=== PATIENT | female | born 1990 | race Caucasian/White ===

== ENCOUNTER 2018-12-25 15:28 | Observation (INO) | payer OTHER, MEDICAID, SELFPAY ==
[2018-12-25 15:30] VITALS: BP 165/99; PULSE 79; RESP 16; TEMP 36.7; O2SAT 96; BMI 42.7
[2018-12-25 16:02] LABS: Bacteria 0 SEEN /hpf (None Seen); Mucous, Urine 0 SEEN /hpf (<or=2+); Red Blood Cells-Urine 0 SEEN /hpf (0-5); White Blood Cells 0 SEEN /hpf (0-5)
[2018-12-25 16:09] LABS: Color, Urine Yellow (Yellow); Glucose, Dipstick Normal (Normal); Ketone-Dipstick Negative (Negative); Leukocyte Esterase-Dipstick Negative /ul (Negative); Nitrite-Dipstick Negative (Negative); Occult Blood-Urine Negative /ul (Negative); Protein-Dipstick Negative (Negative); Urine Bilirubin Dipstick Negative (Negative); Urine Clarity Clear (Clear); Urine Urobilinogen Normal (Normal)
--- NOTE | 2018-12-25 16:14 | US_ITS ---
STUDY: ABDOMINAL ULTRASOUND - RIGHT UPPER QUADRANT REASON FOR VISIT: Female, 28 years old right upper quadrant pain with nausea and vomiting. TECHNIQUE: Ultrasound evaluation of the right upper quadrant was performed with real-time and static bob-scale imaging. TECHNICAL QUALITY: Adequate. COMPARISON: None. FINDINGS: Liver: The liver measures 16.5 cm. There is normal echogenicity of the liver. The bile ducts are within normal limits. There is hepatic color flow. The direction of portal flow is hepatopetal. There is no demonstrated mass lesion. Gallbladder: Normal distended gallbladder. The gallbladder wall measures 2.6 mm. There is a negative sonographic Lea's sign. There is no pericholecystic fluid. There are multiple echogenic structures within the gallbladder, consistent with multiple gallstones. Common Bile Duct (C.B.D.): The common bile duct measures 7 mm. Pancreas: Normal head and body of the pancreas. Tail obscured by bowel gas. There is normal echogenicity of the pancreas. There is no demonstrated pancreatic mass or cyst. Right Kidney: Normal size of the right kidney. The right kidney measures 11.9 x 5.5 x 4.4 cm. Normal renal cortex. The right cortex measures 1.3 cm. There is no demonstrated renal mass or cyst. There is no right hydronephrosis. US/Gallbladder IMPRESSION: Normal liver. Numerous tiny dependent gallstones in the gallbladder without wall thickening or pericholecystic fluid. The common bile duct is upper limits of normal/mildly dilated without a visualized filling defect in the intrahepatic portion of the visualized common bile duct. Normal pancreas and right kidney. Electronically Signed: Sayda Segundo MD at 17:45 EDT , Service support ,
--- NOTE | 2018-12-25 16:15 | ED.VIS.GEN ---
History of Present Illness Chief Complaint: Abd Pain Detail of Chief Complaint: Right upper quadrant pain Informant: Patient Onset: Month(s) - For approximately 3 months Context: Sudden Onset Timing: Intermittent Quality: Pain right upper quadrant pain with radiation and nausea/vomiting Location: Right upper quadrant Current Severity: Mild Maximum Severity: Severe Worsened by: Initially fatty meals now any meal Relieved by: Nothing Associated Symptoms: Nausea and vomiting Narrative: Patient is a 28-year-old female status post 3 months ago. Pain started after delivery. She initially reported intolerance to greasy and fatty meals. There is a strong family history of cholelithiasis. She now reports any type of food will cause her to have pain in the right upper quadrant. She has had elevated temperatures. She has not had elevated temperature last 24 hours. She still complains of nausea. She denies cardiac respiratory symptoms. She denies urologic symptoms. There is no history of trauma. Prior similar symptoms: Yes Recent Illness/Hospitalization: No - Past Medical History (1) No significant past medical history Status: Acute Past Medical History - Allergies and Home Meds Allergies/Adverse Reactions: Allergies No Known Allergies Allergy (Verified 12/25/18 15:29) Primary Care Physician: NOT,DEFINED [NON-STAFF] - Prior records reviewed: No - Recently moved from [place] Surgical History: - - Lives: Spouse/ Significant Other, With Family Smoking Status: Never smoker Alcohol: None Drugs: None Review of Systems General: Denies: Chills, Fever, Sweats Eyes: Denies: Visual changes - bilaterally, Diplopia ENT: Denies: Rhinorrhea, Sore throat Cardiovascular: Denies: Chest pain, Palpitations Respiratory: Denies: Dyspnea, Cough, Dyspnea on exertion Gastrointestinal: Reports: Abdominal pain, Nausea, Vomiting. Denies: Diarrhea, Constipation, Melena, Hematochezia, -, - Genitourinary: Denies: Dysuria, Hematuria, Frequency Musculoskeletal: Reports: Back pain. Denies: Myalgias, Arthralgias, Neck pain, Swelling, Extremity Pain Skin: Denies: Rash, Wounds Neurological: Denies: Headache, Weakness, Numbness Physical Exam Vital Signs/Narrative: Vital Signs Temp Pulse Resp BP Pulse Ox 12/25/18 15:30 98.1 F 79 16 165/99 H 96 Inital Vital Signs reviewed: Yes General: Well nourished, Well developed, No Acute Distress - She does appear uncomfortable. Head: Normocephalic, Atraumatic Eyes: Perrl, EOMI. Negative for: Pale conjunctiva, Scleral icterus ENT: Moist mucous membranes, No rhinorrhea Neck: Supple, Nontender, No lymphadenopathy, No JVD Cardiovascular: Regular rate, Regular rhythm, No murmurs, Normal S1, Normal S2 Respiratory: No distress, CTA bilaterally, Chest nontender Abdomen: Soft, Nondistended, Normal bowel sounds, Tender, Lea's sign Back: Nontender, Normal Inspection. Negative for: CVA tenderness Extremities: Nontender, No edema Skin: Normal color, No rash Neurological: Alert, Oriented x3, Cranial nerves II-XII grossly intact, Normal Strength, Normal Sensation Psychological: Normal affect, Normal Mood Diagnostic/Tx/Re-eval Impressions Gallbladder Ultrasound 12/25/18 16:14 IMPRESSION: Normal liver. Numerous tiny dependent gallstones in the gallbladder without wall thickening or pericholecystic fluid. The common bile duct is upper limits of normal/mildly dilated without a visualized filling defect in the intrahepatic portion of the visualized common bile duct. Normal pancreas and right kidney. Electronically Signed: Sayda Segundo MD at 17:45 EDT , Service support , 12/25/18 16:14 Gallbladder [US] Stat Laboratory Results 12/25/18 12/25/18 12/25/18 15:45 15:57 15:57 WBC Cancelled Corrected WBC Cancelled RBC Cancelled Hgb Cancelled Hct Cancelled MCV Cancelled MCH Cancelled MCHC Cancelled RDW Std Deviation Cancelled RDW Coeff of Paula Cancelled Plt Count Cancelled MPV Cancelled Immature Gran % (Auto) Cancelled Neut % (Auto) Cancelled Lymph % (Auto) Cancelled [place] % (Auto) Cancelled Eos % (Auto) Cancelled Baso % (Auto) Cancelled Absolute Neuts (auto) Cancelled Absolute Lymphs (auto) Cancelled Total Counted Cancelled Neutrophils % (Manual) Cancelled Band Neutrophils % Cancelled Lymphocytes % (Manual) Cancelled Monocytes % (Manual) Cancelled Eosinophils % (Manual) Cancelled Basophils % (Manual) Cancelled Metamyelocytes % Cancelled Myelocytes % Cancelled Promyelocytes % Cancelled Blast Cells % Cancelled Plasma Cell % (Manual) Cancelled Other Cells % Cancelled Nucleated RBC % Cancelled Nucleated RBCs/100 WBC Cancelled Differential Comment Cancelled Diff Path Review Cancelled Hypersegmented Neuts Cancelled Atypical Lymphocytes Cancelled Reactive Lymphocytes Cancelled Smudge Cells Cancelled Toxic Granulation Cancelled Toxic Vacuolation Cancelled Dohle Bodies Cancelled Saul Rods Cancelled Platelet Estimate Cancelled Plt Morphology Comment Cancelled RBC Morphology Cancelled Polychromasia Cancelled Hypochromasia Cancelled Poikilocytosis Cancelled Basophilic Stippling Cancelled Anisocytosis Cancelled Microcytosis Cancelled Macrocytosis Cancelled Spherocytes Cancelled Sickle Cells Cancelled Target Cells Cancelled Tear Drop Cells Cancelled Ovalocytes Cancelled Stomatocytes Cancelled [place] Bodies Cancelled [place] Cells Cancelled Bite Cells Cancelled Crenated Cell Cancelled Acanthocytes (Spur) Cancelled Rouleaux Cancelled Schistocytes Cancelled Sodium 137 Potassium 4.7 Chloride 105 Carbon Dioxide 27.0 Anion Gap 5 BUN 11 Creatinine 0.85 Estim Creat Clear Calc 77.93 Est GFR (MDRD) Af Amer 102 Est GFR (MDRD) Non-Af 84 BUN/Creatinine Ratio 13.0 Glucose 96 Calcium 9.2 Total Bilirubin Direct Bilirubin AST ALT Alkaline Phosphatase Total Protein Albumin Globulin Lipase Serum , Qual Urine Color Yellow Urine Clarity Clear Urine pH 7.0 Ur Specific [place] 1.010 Urine Protein Negative Urine Glucose (UA) Normal Urine Ketones Negative Urine Occult Blood Negative Urine Nitrite Negative Urine Bilirubin Negative Urine Urobilinogen Normal Ur Leukocyte Esterase Negative Urine RBC 0 SEEN Urine WBC 0 SEEN Ur Squamous Epith Cells 0-5 SEEN Urine Bacteria 0 SEEN Urine Mucus 0 SEEN 12/25/18 12/25/18 15:57 15:57 WBC Corrected WBC RBC Hgb Hct MCV MCH MCHC RDW Std Deviation RDW Coeff of Paula Plt Count MPV Immature Gran % (Auto) Neut % (Auto) Lymph % (Auto) [place] % (Auto) Eos % (Auto) Baso % (Auto) Absolute Neuts (auto) Absolute Lymphs (auto) Total Counted Neutrophils % (Manual) Band Neutrophils % Lymphocytes % (Manual) Monocytes % (Manual) Eosinophils % (Manual) Basophils % (Manual) Metamyelocytes % Myelocytes % Promyelocytes % Blast Cells % Plasma Cell % (Manual) Other Cells % Nucleated RBC % Nucleated RBCs/100 WBC Differential Comment Diff Path Review Hypersegmented Neuts Atypical Lymphocytes Reactive Lymphocytes Smudge Cells Toxic Granulation Toxic Vacuolation Dohle Bodies Saul Rods Platelet Estimate Plt Morphology Comment RBC Morphology Polychromasia Hypochromasia Poikilocytosis Basophilic Stippling Anisocytosis Microcytosis Macrocytosis Spherocytes Sickle Cells Target Cells Tear Drop Cells Ovalocytes Stomatocytes [place] Bodies [place] Cells Bite Cells Crenated Cell Acanthocytes (Spur) Rouleaux Schistocytes Sodium Potassium Chloride Carbon Dioxide Anion Gap BUN Creatinine Estim Creat Clear Calc Est GFR (MDRD) Af Amer Est GFR (MDRD) Non-Af BUN/Creatinine Ratio Glucose Calcium Total Bilirubin 1.30 H Direct Bilirubin 0.24 AST 189 H ALT 116 H Alkaline Phosphatase 190 H Total Protein 7.8 Albumin 3.7 Globulin 4.1 Lipase 110 Serum , Qual NEGATIVE Urine Color Urine Clarity Urine pH Ur Specific [place] Urine Protein Urine Glucose (UA) Urine Ketones Urine Occult Blood Urine Nitrite Urine Bilirubin Urine Urobilinogen Ur Leukocyte Esterase Urine RBC Urine WBC Ur Squamous Epith Cells Urine Bacteria Urine Mucus - Medical Decision Making With recent , intolerance to greasy food and family history cholelithiasis with clinical Lea sign will obtain ultrasound to assess for cholelithiasis/cholecystitis. Blood work was obtained to assess white count, liver enzymes and lipase. This may also represent gastritis/peptic ulcer disease. She has not eaten since 0900 and ultrasound of the right upper quadrant was ordered. Tone is normal. Spoke with surgeon who will begin to see patient for admission. ED Disposition - Plan for ED Patient: Disposition: Acute Care Hospital [facility] Diagnosis: Cholelithiasis, Biliary colic Referrals: NOT,DEFINED [NON-STAFF] -
[2018-12-25 16:19] LABS: Anion Gap 5 (5-15); BUN 11 mg/dL (7-18); Calcium,Total 9.2 mg/dL (8.5-10.1); Chloride 105 mmol/L (98-107); Creatinine, Serum 0.85 mg/dL (0.55-1.02); EST Glomerular Filtration Rate 84 mL/min (>60); Est Glom Filt Rate - Afr Amer 102 mL/min (>60); Estimated Creatinine Clearance 77.93 ml/min; Glucose 96 mg/dL (74-106); Potassium 4.7 mmol/L (3.5-5.1); Sodium Level 137 mmol/L (136-145)
[2018-12-25 16:26] LABS: Internal QC Validated? YES +Cl - CLEAR BKGD; Pregnancy, Serum, hCG Quali. NEGATIVE Negative
[2018-12-25 16:37] LABS: Squamous Epithelial Cells - UA 0-5 SEEN /hpf (5-10)
[2018-12-25 17:12] LABS: AST(SGOT) 189 U/L (15-37); Alanine Aminotransfer ALT/SGPT 116 U/L (13-56); Albumin, Serum 3.7 g/dL (3.2-5.0); Alkaline Phosphatase 190 U/L (45-117); Bilirubin, Direct 0.24 mg/dL (0.00-0.30); Globulin 4.1 g/dL (2.2-4.2); Lipase 110 U/L (73-393); Protein, Total 7.8 g/dL (6.4-8.2)
[2018-12-25 17:59] LABS: Absolute Lymphocyte Count 1.63 X10^3/uL (0.83-4.51); Absolute Neutrophil Count 6.9 X10^3/uL (2.0-7.7); Basophil# 0.03 X10^3/uL; Basophil% 0.3 % (0-1); Eosinophil# 0.05 X10^3/uL; Eosinophils% 0.5 % (0-5); Hematocrit 43.1 % (37-47); Hemoglobin 14.2 g/dL (12.0-15.0); Lymphocyte # 1.63 X10^3/ul (4.0); Lymphocyte % 17.8 % (19-41); Mean Corp Hgb Conc 32.9 g/dL (32-36); Mean Corpuscular Hgb 29.4 pg (27.0-32.0); Mean Corpuscular Volume 89.2 fL (81-99); Monocyte# 0.52 X10^3/uL; Monocyte% 5.7 % (0-10); NRBC Flagged by Analyzer 0 % (0-5); Neutrophil # 6.88 X10^3/uL (2.7-7.7); Neutrophil % 75.4 % (47-70); Platelet Count 248 K/mm3 (150-450); RBC Distribution Width SD 45.6 fl (35.1-43.9); Red Blood Count 4.83 M/mm3 (4.2-5.4); White Blood Count 9.1 K/mm3 (4.4-11.0)
[2018-12-25] MEDS: Ketorolac 15 MG/ML Vial IV (18:23)
[2018-12-25 18:31] VITALS: BP 140/74; PULSE 76; RESP 18; O2SAT 97
[2018-12-25 20:08] VITALS: RESP 16
--- NOTE | 2018-12-25 20:14 | HP.PCM_ITS ---
Problem List (1) Cholelithiasis Status: Acute Qualifiers: Cholelithiasis location: gallbladder Cholecystitis presence: with cholecystitis Cholecystitis acuity: acute and chronic Biliary obstruction: with biliary obstruction Qualified Code(s): K80.13 - Calculus of gallbladder with acute and chronic cholecystitis with obstruction (2) Biliary colic Status: Acute History of Present Illness Date of Admission: 12/25/18 The patient is a 28 year old F who presented to the emergency room with right upper quadrant pain. The patient reports that for the last 3 months she has been having pain in her right upper quadrant. This started with the end of her . She reports that ever since she gave she is been having intermittent right upper quadrant pain but lately she is been having more intense episodes of pain. She says that this morning she had a very intense episode of pain. She still complaining of epigastric pain but it has lessened since this morning. Past Medical History Allergies No Known Allergies Allergy (Verified 12/25/18 15:29) Home Medications: Ambulatory Orders Medication Instructions Recorded NK 12/25/18 Surgical History: - - Lives: Spouse/ Significant Other, With Family Smoking Status: Never smoker Alcohol: None Drugs: None Review of Systems Constitutional: Denies: Anorexia, Fever HEENT: Denies: Difficulty Swallowing Cardiovascular: Denies: Chest Pain Respiratory: Denies: Shortness of Breath Gastrointestinal: Reports: Abdominal Pain. Denies: Nausea, Vomiting Genitourinary: Denies: Dysuria Musculoskeletal: Denies: Arm Pain, Back Pain Skin: Denies: Dryness Psychiatric: Denies: Anxiety Hematologic/ Lymphatic: Denies: Anemia VTE Information - Inpt Only VTE Present on Admission: No VTE Mechan Device Prophylaxis: SCD's Patient Problems: Active and Suspected Problems Cholelithiasis (Acute) Biliary colic (Acute) - Physical Exam General: Alert, Oriented x3 Neck: No JVD Lungs: Normal air movement Cardiovascular: Regular rate, Regular Rhythm Abdomen: Soft, Non-Distended, Tender - Tender in the epigastric region Vital Signs Temp Pulse Resp BP Pulse Ox 98.1 F 76 16 140/74 H 97 12/25/18 15:30 12/25/18 18:31 12/25/18 20:08 12/25/18 18:31 12/25/18 18:31 Oxygen Delivery Method Room Air Weight: 233 lb 11.04 oz Body Mass Index (BMI) 42.7 Laboratory Tests Past 24 Hrs 12/25/18 12/25/18 12/25/18 15:45 15:57 15:57 WBC Cancelled Corrected WBC Cancelled RBC Cancelled Hgb Cancelled Hct Cancelled MCV Cancelled MCH Cancelled MCHC Cancelled RDW Std Deviation Cancelled RDW Coeff of Paula Cancelled Plt Count Cancelled MPV Cancelled Immature Gran % (Auto) Cancelled Neut % (Auto) Cancelled Lymph % (Auto) Cancelled [place] % (Auto) Cancelled Eos % (Auto) Cancelled Baso % (Auto) Cancelled Absolute Neuts (auto) Cancelled Absolute Lymphs (auto) Cancelled Total Counted Cancelled Neutrophils % (Manual) Cancelled Band Neutrophils % Cancelled Lymphocytes % (Manual) Cancelled Monocytes % (Manual) Cancelled Eosinophils % (Manual) Cancelled Basophils % (Manual) Cancelled Metamyelocytes % Cancelled Myelocytes % Cancelled Promyelocytes % Cancelled Blast Cells % Cancelled Plasma Cell % (Manual) Cancelled Other Cells % Cancelled Nucleated RBC % Cancelled Nucleated RBCs/100 WBC Cancelled Differential Comment Cancelled Diff Path Review Cancelled Hypersegmented Neuts Cancelled Atypical Lymphocytes Cancelled Reactive Lymphocytes Cancelled Smudge Cells Cancelled Toxic Granulation Cancelled Toxic Vacuolation Cancelled Dohle Bodies Cancelled Saul Rods Cancelled Platelet Estimate Cancelled Plt Morphology Comment Cancelled RBC Morphology Cancelled Polychromasia Cancelled Hypochromasia Cancelled Poikilocytosis Cancelled Basophilic Stippling Cancelled Anisocytosis Cancelled Microcytosis Cancelled Macrocytosis Cancelled Spherocytes Cancelled Sickle Cells Cancelled Target Cells Cancelled Tear Drop Cells Cancelled Ovalocytes Cancelled Stomatocytes Cancelled [place] Bodies Cancelled [place] Cells Cancelled Bite Cells Cancelled Crenated Cell Cancelled Acanthocytes (Spur) Cancelled Rouleaux Cancelled Schistocytes Cancelled Sodium 137 Potassium 4.7 Chloride 105 Carbon Dioxide 27.0 Anion Gap 5 BUN 11 Creatinine 0.85 Estim Creat Clear Calc 77.93 Est GFR (MDRD) Af Amer 102 Est GFR (MDRD) Non-Af 84 BUN/Creatinine Ratio 13.0 Glucose 96 Calcium 9.2 Total Bilirubin Direct Bilirubin AST ALT Alkaline Phosphatase Total Protein Albumin Globulin Lipase Serum , Qual Urine Color Yellow Urine Clarity Clear Urine pH 7.0 Ur Specific [place] 1.010 Urine Protein Negative Urine Glucose (UA) Normal Urine Ketones Negative Urine Occult Blood Negative Urine Nitrite Negative Urine Bilirubin Negative Urine Urobilinogen Normal Ur Leukocyte Esterase Negative Urine RBC 0 SEEN Urine WBC 0 SEEN Ur Squamous Epith Cells 0-5 SEEN Urine Bacteria 0 SEEN Urine Mucus 0 SEEN 12/25/18 12/25/18 12/25/18 15:57 15:57 17:50 WBC 9.1 Corrected WBC RBC 4.83 Hgb 14.2 Hct 43.1 MCV 89.2 MCH 29.4 MCHC 32.9 RDW Std Deviation 45.6 H RDW Coeff of Paula 14.0 Plt Count 248 MPV 11.0 Immature Gran % (Auto) 0.300 Neut % (Auto) 75.4 H Lymph % (Auto) 17.8 L [place] % (Auto) 5.7 Eos % (Auto) 0.5 Baso % (Auto) 0.3 Absolute Neuts (auto) 6.9 Absolute Lymphs (auto) 1.63 Total Counted Neutrophils % (Manual) Band Neutrophils % Lymphocytes % (Manual) Monocytes % (Manual) Eosinophils % (Manual) Basophils % (Manual) Metamyelocytes % Myelocytes % Promyelocytes % Blast Cells % Plasma Cell % (Manual) Other Cells % Nucleated RBC % 0 Nucleated RBCs/100 WBC Differential Comment Diff Path Review Hypersegmented Neuts Atypical Lymphocytes Reactive Lymphocytes Smudge Cells Toxic Granulation Toxic Vacuolation Dohle Bodies Saul Rods Platelet Estimate Plt Morphology Comment RBC Morphology Polychromasia Hypochromasia Poikilocytosis Basophilic Stippling Anisocytosis Microcytosis Macrocytosis Spherocytes Sickle Cells Target Cells Tear Drop Cells Ovalocytes Stomatocytes [place] Bodies [place] Cells Bite Cells Crenated Cell Acanthocytes (Spur) Rouleaux Schistocytes Sodium Potassium Chloride Carbon Dioxide Anion Gap BUN Creatinine Estim Creat Clear Calc Est GFR (MDRD) Af Amer Est GFR (MDRD) Non-Af BUN/Creatinine Ratio Glucose Calcium Total Bilirubin 1.30 H Direct Bilirubin 0.24 AST 189 H ALT 116 H Alkaline Phosphatase 190 H Total Protein 7.8 Albumin 3.7 Globulin 4.1 Lipase 110 Serum , Qual NEGATIVE Urine Color Urine Clarity Urine pH Ur Specific [place] Urine Protein Urine Glucose (UA) Urine Ketones Urine Occult Blood Urine Nitrite Urine Bilirubin Urine Urobilinogen Ur Leukocyte Esterase Urine RBC Urine WBC Ur Squamous Epith Cells Urine Bacteria Urine Mucus Clinical Impression(s) from Imaging Studies Gallbladder Ultrasound 12/25/18 16:14 IMPRESSION: Normal liver. Numerous tiny dependent gallstones in the gallbladder without wall thickening or pericholecystic fluid. The common bile duct is upper limits of normal/mildly dilated without a visualized filling defect in the intrahepatic portion of the visualized common bile duct. Normal pancreas and right kidney. Electronically Signed: Sayda Segundo MD at 17:45 EDT , Service support , Assessment/Plan All Active Problems No significant past medical history (Acute) Cholelithiasis (Acute) Biliary colic (Acute) 28-year-old female with cholelithiasis 1. The patient reports that she has been having right upper quadrant pain. She had an episode of this right upper quadrant pain this morning. It is lessening at this point. She does have a normal white count but there is left shift. The patient also has slightly elevated LFTs. Ultrasound showed multiple gallstones in the gallbladder but normal gallbladder thickness. 2. Patient appears to have either acute obstruction of the common bile duct or resolving obstruction. I will admit the patient and start her on antibiotics. I will recheck LFTs in the morning. I explained her that if the LFTs increase I would recommend ERCP. If the LFTs decreased I would recommend laparoscopic cholecystectomy to prevent this from happening in the future. I will keep the patient n.p.o. and on IV fluids with SCDs and PPI. Mikie Alvarez MD Pager: [facility] [address] [place] [address], [address] [place] [address] Office:
[2018-12-25 20:32] VITALS: BMI 42.3
[2018-12-25 20:52] VITALS: BP 148/91; PULSE 102; RESP 18; TEMP 36.8; O2SAT 100
[2018-12-25] MEDS: 0.9% Normal Saline 1,000 ML 100 ML IV (21:46)
[2018-12-26] VITALS (10 sets, daily range): BP systolic 101–154; BP diastolic 63–109; PULSE 58–100; RESP 16–18; TEMP 36.2–36.8; O2SAT 94–100
[2018-12-26] MEDS: 0.9% NaCl IVPB Med Flush (250 mL) 15 ML IV (01:46)
[2018-12-26] MEDS: 0.9% NaCl Peripheral Flush Adult/Peds IV (02:11)
[2018-12-26] MEDS: 0.9% Normal Saline 1,000 ML 100 ML IV (05:52)
[2018-12-26 06:18] LABS: Absolute Lymphocyte Count 2.04 X10^3/uL (0.83-4.51); Absolute Neutrophil Count 4.6 X10^3/uL (2.0-7.7); Basophil# 0.03 X10^3/uL; Basophil% 0.4 % (0-1); Eosinophil# 0.14 X10^3/uL; Eosinophils% 1.9 % (0-5); Hematocrit 43.5 % (37-47); Lymphocyte # 2.04 X10^3/ul (4.0); Lymphocyte % 27.8 % (19-41); Mean Corp Hgb Conc 32.2 g/dL (32-36); Mean Corpuscular Hgb 28.7 pg (27.0-32.0); Mean Corpuscular Volume 89.3 fL (81-99); Mean Platelet Vol. 11.5 fl (6.2-12.0); Monocyte# 0.51 X10^3/uL; NRBC Flagged by Analyzer 0 % (0-5); Neutrophil # 4.59 X10^3/uL (2.7-7.7); Neutrophil % 62.6 % (47-70); Platelet Count 245 K/mm3 (150-450); RBC Distribution Width CV 14.3 % (11.6-14.6); RBC Distribution Width SD 46.5 fl (35.1-43.9); Red Blood Count 4.87 M/mm3 (4.2-5.4); White Blood Count 7.3 K/mm3 (4.4-11.0)
[2018-12-26 06:46] LABS: ALB/GLOB Ratio 1.1 RATIO (0.9-2.4); AST(SGOT) 64 U/L (15-37); Alanine Aminotransfer ALT/SGPT 96 U/L (13-56); Albumin, Serum 3.3 g/dL (3.2-5.0); Alkaline Phosphatase 153 U/L (45-117); Anion Gap 4 (5-15); BUN 11 mg/dL (7-18); BUN/Creat Ratio 11.9 RATIO (10-20); Calcium,Total 8.3 mg/dL (8.5-10.1); Chloride 110 mmol/L (98-107); Creatinine, Serum 0.92 mg/dL (0.55-1.02); EST Glomerular Filtration Rate 77 mL/min (>60); Est Glom Filt Rate - Afr Amer 93 mL/min (>60); Globulin 3.1 g/dL (2.2-4.2); Glucose 92 mg/dL (74-106); Potassium 3.6 mmol/L (3.5-5.1); Protein, Total 6.4 g/dL (6.4-8.2); Sodium Level 140 mmol/L (136-145)
--- NOTE | 2018-12-26 07:31 | PCM.PN.SRG ---
Patient Problems: Active and Suspected Problems Cholelithiasis (Acute) Biliary colic (Acute) Subjective: Patient reports that her stomach feels uneasy but she is not having any pain. - Physical Exam General: Alert, Oriented x3 Lungs: Normal air movement Cardiovascular: Regular rate, Regular Rhythm Abdomen: Soft, Non-Distended Vital Signs Temp Pulse Resp BP Pulse Ox 98.0 F 77 16 101/63 96 12/26/18 02:09 12/26/18 02:09 12/26/18 02:09 12/26/18 02:09 12/26/18 02:09 Oxygen Delivery Method Room Air Weight: 231 lb 5 oz Body Mass Index (BMI) 42.3 Intake and Output for Last 24 Hours 12/24/18 12/25/18 12/26/18 23:59 23:59 23:59 Intake Total 918.67 / 918.67 Output Total 600 / 600 Balance 318.67 / 318.67 Laboratory Tests Past 24 Hrs 12/25/18 12/25/18 12/25/18 15:45 15:57 15:57 WBC Cancelled Corrected WBC Cancelled RBC Cancelled Hgb Cancelled Hct Cancelled MCV Cancelled MCH Cancelled MCHC Cancelled RDW Std Deviation Cancelled RDW Coeff of Paula Cancelled Plt Count Cancelled MPV Cancelled Immature Gran % (Auto) Cancelled Neut % (Auto) Cancelled Lymph % (Auto) Cancelled Desha % (Auto) Cancelled Eos % (Auto) Cancelled Baso % (Auto) Cancelled Absolute Neuts (auto) Cancelled Absolute Lymphs (auto) Cancelled Total Counted Cancelled Neutrophils % (Manual) Cancelled Band Neutrophils % Cancelled Lymphocytes % (Manual) Cancelled Monocytes % (Manual) Cancelled Eosinophils % (Manual) Cancelled Basophils % (Manual) Cancelled Metamyelocytes % Cancelled Myelocytes % Cancelled Promyelocytes % Cancelled Blast Cells % Cancelled Plasma Cell % (Manual) Cancelled Other Cells % Cancelled Nucleated RBC % Cancelled Nucleated RBCs/100 WBC Cancelled Differential Comment Cancelled Diff Path Review Cancelled Hypersegmented Neuts Cancelled Atypical Lymphocytes Cancelled Reactive Lymphocytes Cancelled Smudge Cells Cancelled Toxic Granulation Cancelled Toxic Vacuolation Cancelled Dohle Bodies Cancelled Saul Rods Cancelled Platelet Estimate Cancelled Plt Morphology Comment Cancelled RBC Morphology Cancelled Polychromasia Cancelled Hypochromasia Cancelled Poikilocytosis Cancelled Basophilic Stippling Cancelled Anisocytosis Cancelled Microcytosis Cancelled Macrocytosis Cancelled Spherocytes Cancelled Sickle Cells Cancelled Target Cells Cancelled Tear Drop Cells Cancelled Ovalocytes Cancelled Stomatocytes Cancelled [place] Bodies Cancelled Modale Cells Cancelled Bite Cells Cancelled Crenated Cell Cancelled Acanthocytes (Spur) Cancelled Rouleaux Cancelled Schistocytes Cancelled Sodium 137 Potassium 4.7 Chloride 105 Carbon Dioxide 27.0 Anion Gap 5 BUN 11 Creatinine 0.85 Estim Creat Clear Calc 77.93 Est GFR (MDRD) Af Amer 102 Est GFR (MDRD) Non-Af 84 BUN/Creatinine Ratio 13.0 Glucose 96 Calcium 9.2 Total Bilirubin Direct Bilirubin AST ALT Alkaline Phosphatase Total Protein Albumin Globulin Albumin/Globulin Ratio Lipase Serum , Qual Urine Color Yellow Urine Clarity Clear Urine pH 7.0 Ur Specific Barney 1.010 Urine Protein Negative Urine Glucose (UA) Normal Urine Ketones Negative Urine Occult Blood Negative Urine Nitrite Negative Urine Bilirubin Negative Urine Urobilinogen Normal Ur Leukocyte Esterase Negative Urine RBC 0 SEEN Urine WBC 0 SEEN Ur Squamous Epith Cells 0-5 SEEN Urine Bacteria 0 SEEN Urine Mucus 0 SEEN 12/25/18 12/25/18 12/25/18 15:57 15:57 17:50 WBC 9.1 Corrected WBC RBC 4.83 Hgb 14.2 Hct 43.1 MCV 89.2 MCH 29.4 MCHC 32.9 RDW Std Deviation 45.6 H RDW Coeff of Paula 14.0 Plt Count 248 MPV 11.0 Immature Gran % (Auto) 0.300 Neut % (Auto) 75.4 H Lymph % (Auto) 17.8 L Desha % (Auto) 5.7 Eos % (Auto) 0.5 Baso % (Auto) 0.3 Absolute Neuts (auto) 6.9 Absolute Lymphs (auto) 1.63 Total Counted Neutrophils % (Manual) Band Neutrophils % Lymphocytes % (Manual) Monocytes % (Manual) Eosinophils % (Manual) Basophils % (Manual) Metamyelocytes % Myelocytes % Promyelocytes % Blast Cells % Plasma Cell % (Manual) Other Cells % Nucleated RBC % 0 Nucleated RBCs/100 WBC Differential Comment Diff Path Review Hypersegmented Neuts Atypical Lymphocytes Reactive Lymphocytes Smudge Cells Toxic Granulation Toxic Vacuolation Dohle Bodies Saul Rods Platelet Estimate Plt Morphology Comment RBC Morphology Polychromasia Hypochromasia Poikilocytosis Basophilic Stippling Anisocytosis Microcytosis Macrocytosis Spherocytes Sickle Cells Target Cells Tear Drop Cells Ovalocytes Stomatocytes [place] Bodies Pam Cells Bite Cells Crenated Cell Acanthocytes (Spur) Rouleaux Schistocytes Sodium Potassium Chloride Carbon Dioxide Anion Gap BUN Creatinine Estim Creat Clear Calc Est GFR (MDRD) Af Amer Est GFR (MDRD) Non-Af BUN/Creatinine Ratio Glucose Calcium Total Bilirubin 1.30 H Direct Bilirubin 0.24 AST 189 H ALT 116 H Alkaline Phosphatase 190 H Total Protein 7.8 Albumin 3.7 Globulin 4.1 Albumin/Globulin Ratio Lipase 110 Serum , Qual NEGATIVE Urine Color Urine Clarity Urine pH Ur Specific Barney Urine Protein Urine Glucose (UA) Urine Ketones Urine Occult Blood Urine Nitrite Urine Bilirubin Urine Urobilinogen Ur Leukocyte Esterase Urine RBC Urine WBC Ur Squamous Epith Cells Urine Bacteria Urine Mucus 12/26/18 12/26/18 05:32 05:32 WBC 7.3 Corrected WBC RBC 4.87 Hgb 14.0 Hct 43.5 MCV 89.3 MCH 28.7 MCHC 32.2 RDW Std Deviation 46.5 H RDW Coeff of Paula 14.3 Plt Count 245 MPV 11.5 Immature Gran % (Auto) 0.300 Neut % (Auto) 62.6 Lymph % (Auto) 27.8 Desha % (Auto) 7.0 Eos % (Auto) 1.9 Baso % (Auto) 0.4 Absolute Neuts (auto) 4.6 Absolute Lymphs (auto) 2.04 Total Counted Neutrophils % (Manual) Band Neutrophils % Lymphocytes % (Manual) Monocytes % (Manual) Eosinophils % (Manual) Basophils % (Manual) Metamyelocytes % Myelocytes % Promyelocytes % Blast Cells % Plasma Cell % (Manual) Other Cells % Nucleated RBC % 0 Nucleated RBCs/100 WBC Differential Comment Diff Path Review Hypersegmented Neuts Atypical Lymphocytes Reactive Lymphocytes Smudge Cells Toxic Granulation Toxic Vacuolation Dohle Bodies Saul Rods Platelet Estimate Plt Morphology Comment RBC Morphology Polychromasia Hypochromasia Poikilocytosis Basophilic Stippling Anisocytosis Microcytosis Macrocytosis Spherocytes Sickle Cells Target Cells Tear Drop Cells Ovalocytes Stomatocytes [place] Bodies Pam Cells Bite Cells Crenated Cell Acanthocytes (Spur) Rouleaux Schistocytes Sodium 140 Potassium 3.6 Chloride 110 H Carbon Dioxide 26.0 Anion Gap 4 L BUN 11 Creatinine 0.92 Estim Creat Clear Calc 72.00 Est GFR (MDRD) Af Amer 93 Est GFR (MDRD) Non-Af 77 BUN/Creatinine Ratio 11.9 Glucose 92 Calcium 8.3 L Total Bilirubin 1.80 H Direct Bilirubin AST 64 H ALT 96 H Alkaline Phosphatase 153 H Total Protein 6.4 Albumin 3.3 Globulin 3.1 Albumin/Globulin Ratio 1.1 Lipase Serum , Qual Urine Color Urine Clarity Urine pH Ur Specific Barney Urine Protein Urine Glucose (UA) Urine Ketones Urine Occult Blood Urine Nitrite Urine Bilirubin Urine Urobilinogen Ur Leukocyte Esterase Urine RBC Urine WBC Ur Squamous Epith Cells Urine Bacteria Urine Mucus Medical Necessity - Tobacco Use Smoking Status: Never smoker Assessment/Plan All Active Problems No significant past medical history (Acute) Cholelithiasis (Acute) Biliary colic (Acute) 28-year-old female with cholelithiasis 1. The patient's LFTs have improved this morning. She is not having any acute pain, only uneasy stomach. 2. Recommend proceeding with laparoscopic cholecystectomy with cholangiogram. I informed her that if this showed any stone she would have to have ERCP tomorrow. 3. I discussed the procedure in detail with the patient. I discussed the risks, benefits, and alternatives of the procedure. I discussed the risks including but not limited to bleeding, infection, injury to surrounding organs such as the liver, bile duct, bowels. I did discuss the possibility of having to convert to an open procedure as well as the possibility that if any injuries occurred this may necessitate further surgery at a tertiary care center. Mikie Alvarez MD Pager: [facility] [address] [place] [address], [address] [place] [address] Office:
--- NOTE | 2018-12-26 11:05 | NURSING ---
CALL PLACED TO ac AND REPORT GIVEN TO DONELL
--- NOTE | 2018-12-26 12:00 | GALL_PTH ---
PATIENT: RANDY AVINA LOC: MS3 U#:[id number] AGE/SX: 28/F ROOM: MS316 RE12/25/[address]: Dr. Mikie Alvarez MD : 1990 BED: 1 DIS: 12/26/2018 SPEC #: [id number] RECD: 12/26/18 14:36 STATUS: CLOTILDE GRIFFITH #: [id number] KALPANA: 12/26/18 12:[address]: Mikie Alvarez DEPT: SURGICAL PATHOLOGY RECD BY: Dimitris Salgado ENTERED: 12/29/18 11:35 SP TYPE: ALLEGRA HUSSEIN DR: No Primary Care Phys Tissues: Gallbladder, NOS Procedures: Surgery Specimen Level III HEADER OPERATION: Laparoscopic cholecystectomy with IOC PRE-OP DIAGNOSIS: Cholecystitis and cholelithiasis TISSUE SUBMITTED: Gallbladder MICROSCOPIC DIAGNOSIS Gallbladder, cholecystectomy: Chronic cholecystitis, cholelithiasis and cholesterolosis. SJ:daniel 12/30/18 MICROSCOPIC DESCRIPTION Slides are reviewed. GROSS DESCRIPTION Received is one container labeled with the patient's name and designated gallbladder. The specimen consists of a gallbladder measuring 9 x 4 x 2.2 cm. The external surface is smooth and glistening. Focally, it is granular, hemorrhagic and contains cautery artifact. The lumen of the gallbladder contains yellow-green mucoid bile and yellow calculi ranging in size from <0.1 to 0.3 cm. The mucosa is bile-stained and without any mass lesions. The gallbladder wall averages 0.2 cm in thickness and is free of mass lesions. Textile Engineer sections of the gallbladder and the cystic duct are submitted in one cassette. / AM:daniel 12/29/18 TC:3 CPT: 65183
--- NOTE | 2018-12-26 12:22 | RAD_ITS ---
CLINICAL HISTORY: Female, 28 years old. Cholecystitis PROCEDURE: CHOLANGIOGRAM - intraoperative FLUOROSCOPY TIME (if supplied): (3:13) minutes/seconds Placement of the catheter and the procedure were performed by: Operating surgeon Fluoroscopy was provided by professor of radiology, who was present in the room time of the procedure. TECHNIQUE: (4 fluoroscopic guided images were obtained during the examination. FINDINGS: The images submitted for interpretation demonstrating normal caliber biliary tree with normal emptying into the small bowel. No intraluminal filling defects to suggest intraductal stones. There is filling of cystic duct remnant but not the gallbladder consistent with cholecystectomy. For more complete information recommend correlation with surgical notes RAD/Cholangiogram/ O R,Initial IMPRESSION: Fluoroscopic guided intraoperative cholangiogram Electronically Signed: Saji Castillo MD at 16:28 EDT , Service support ,
[2018-12-26] MEDS: Bupivacaine Mpf 0.5% 30 ML VIAL (13:33)
--- NOTE | 2018-12-26 14:53 | PCM.OPRPT ---
Problem List (1) Cholelithiasis Status: Acute Qualifiers: Cholelithiasis location: gallbladder Cholecystitis presence: with cholecystitis Cholecystitis acuity: acute and chronic Biliary obstruction: with biliary obstruction Qualified Code(s): K80.13 - Calculus of gallbladder with acute and chronic cholecystitis with obstruction (2) Biliary colic Status: Acute Report of Operation Date of Procedure: 12/26/18 Pre-Operative Diagnosis: Choledocholithiasis and obstructive jaundice Post-Operative Diagnosis: Same Surgery/Procedure Performed:: Laparoscopic cholecystectomy with cholangiogram Specimen's removed: Gallbladder and contents Description of Procedure: After obtaining informed consent patient was brought back to the operating room. General anesthesia was induced. The abdomen was prepped and draped in usual sterile fashion. A small midline incision was made superior to the umbilicus and deepened to the level of fascia. The fascia was elevated and incised. Next the peritoneum was elevated and incised in the same fashion. Finger sweep was performed and the Henao trocar was placed into the abdomen. The balloon was inflated. The abdomen was inflated to 15 mmHg. Next a camera was introduced into the abdomen and the abdomen was inspected. Next under direct visualization three 5-mm ports were placed one subxiphoid and 2 subcostal. Next the gallbladder was elevated and retracted toward the right shoulder. The peritoneum was stripped from the gallbladder. The infundibulum was located and retracted laterally. Next the triangle of Calot was dissected and the cystic duct and cystic artery were identified. Cholangiograms were performed. A clip was placed in the proximal cystic duct. Incision was made in the right upper quadrant and a Ranfac catheter was placed through this. The anterior cystic duct was snipped with scissors and the Ranfac catheter was placed into this and distally and a clip was placed over this. Next cholangiograms were performed under fluoroscopy. Contrast was instilled in the common bile duct and the common bile duct appeared dilated and there was no flow into the duodenum. Glucagon was given and after 5 minutes reattempt was made and the contrast did flushed easily into the duodenum. Next the distal was removed and a Ranfac catheter was removed from the cystic duct. Three hemolock clips were placed across the cystic duct. The cystic duct was then divided leaving 2 clips on the stump. The cystic artery was clipped and divided in the same fashion. The hook cautery was then used to take the gallbladder off of the gallbladder bed. Hemostasis was obtained. Gallbladder fossa was irrigated and no active bleeding or bile leakage was noted. Next the camera switched to a 5 mm camera and introduced in the subxiphoid port. An Endopouch bag was placed through the umbilical port and the gallbladder was placed into it. The gallbladder was then removed through the umbilical incision. The camera was then reinserted through the umbilical port. The gallbladder fossa was inspected once more and noted to be hemostatic with no leaking bile. The abdomen was suctioned dry. The 5 mm ports were removed under direct visualization. The umbilical port was then removed and the air was removed from the abdomen. Next using an 0 Vicryl suture the umbilical fascia was closed in a [id number] fashion. The umbilical port site was irrigated local anesthetic was administered to all the incisions. All the incisions were closed with interrupted subcuticular 4-0 Monocryl sutures followed by Steri-Strips and dressings. The patient was awoken and taken to PACU in stable condition. - Admit VTE Documentation VTE Present on Admission: No VTE Mechan Device Prophylaxis: SCD's
--- NOTE | 2018-12-26 14:55 | DCINST_ITS ---
Discharge Diet: Light diet - advance as tolerated Discharge Activity: Return to Normal Activity, May Not Drive - for 2-3 days or while taking narcotic pain medicataions., - - Do not drive, work heavy equipment or sign legal documents for 24 hours. May shower in (days): 1 - with the bandage in place. Additional Activity Instructions:: Pain medication may cause nausea. You should typically eat light foods as you take your pain medications. Pain medication may also cause constipation. If this is a problem for you, please discuss with your doctor. Call your doctor if your incision/area has: Continuous Slow Oozing, Sudden Increased Bleeding, Increased Pain/ Swelling, Increased Redness, Foul Smelling Discharge, Fever of 101 or Higher Call your doctor if you observe: Fever of 101 or Higher Suture Line Care: Avoid Pulling/Pushing, Avoid Pinching/Bending Additional Dressing/Incision Instructions:: Leave operative bandaids on for 2 days. When you remove dressing, leave Steri-Strips on until your follow-up appointment, or until the Steri-Strips fall off on their own. Allergies/Adverse Reactions: Allergies No Known Allergies Allergy (Verified 12/25/18 15:29) Medications to take at Discharge Ibuprofen 400 - 600 mg PO DAILY PRN PRN 12/25/18 Simethicone [Gas Relief] 375 mg PO DAILY PRN PRN 12/25/18 Oxycodone [Oxyir] 5 - 10 mg PO Q4H PRN PRN 7 Days #40 tab 12/26/18 The following prescriptions were given: Oxycodone [Oxyir] 5 - 10 mg PO Q4H PRN PRN 7 Days #40 tab PRN Reason: Pain Score 6-10/10 Transmission Status: Sent to [facility] Primary Care Physician: NOT,DEFINED [NON-STAFF] - Test Results: Test results from this visit will be discussed in further detail at your follow- up appointment, if applicable. Please Follow Up With: Mikie Alvarez MD When: Please call to schedule 2 week follow up appointment. [phone]
== END 2018-12-26 18:45 | disposition home or self-care (01) ==
LOC: ED 19:43 → MS3 20:20
PROVIDERS: Admitting Provider Surgery; Emergency Provider Emergency Medicine; Referring Provider Surgery; Visit Provider Surgery
PROC: (CPT 47610; principal; 2018-12-26 11:40)
DX: K80.13 Calculus of gallbladder with acute and chronic cholecystitis with obstruction (principal)
CPT/HCPCS: 00790; 47563; 36415; 74300; 76000; 76705; 80048; 80053; 80076; 81001; 83690; 84703; 85025; 88304; 93005; 96361; 96365; 96366; 96375; 99218; 99285; J7030; J7050; A4216; G0378; J1610; J2405

== ENCOUNTER → 2019-01-16 13:01 | Outpatient (CLI) | payer OTHER, MEDICAID, SELFPAY ==
[2018-12-29 11:46] VITALS: BMI 42.7
--- NOTE | 2019-01-16 13:03 | CT_ITS ---
STUDY: CT ABDOMEN AND PELVIS WITH CONTRAST REASON FOR EXAM: Female, 28 years old. Possible ventral hernia, cholecystectomy 3 weeks ago RADIATION DOSAGE (If Supplied By Facility): CTDIvol = ( 15.94 ) mGy, DLP = ( 1009.81 ) mGycm TECHNIQUE: CT images were obtained from the dome of the diaphragm to the symphysis pubis without oral contrast. IV/Oral Isovue 300 100ml was administered. Sagittal and coronal images were reconstructed. Individualized dose optimization techniques were used for this CT. COMPARISON: None. FINDINGS: The visualized lung bases are unremarkable. The visualized portions of the heart are within normal limits. Normal liver. Gallbladder is resected.. Normal spleen. Normal pancreas. Normal bilateral adrenal glands. Normal right kidney. Normal left kidney. Normal visualized stomach. Normal small intestine. Normal colon. The appendix is visualized and appears normal. There is a ventral abdominal hernia. Laparoscopic port entry site is present in the midline with diastases recti. There is extra abdominal lipomatosis and severely elevated BMI. Normal urinary bladder. There are bilateral tubal occlusion metallic clips. Normal abdominal wall. Normal osseous structures. CT/Abdomen/Pelvis WITH Contrast IMPRESSION: 1. Ventral abdominal hernia/diastasis recti. 2. No acute intra-abdominal findings. Electronically Signed: Jackelyn Longo, at 14:14 EDT Tel , Service support ,
== END ==
PROVIDERS: Referring Provider Surgery; Visit Provider Surgery
DX: K43.9 Ventral hernia without obstruction or gangrene (principal)
CPT/HCPCS: 74177; Q9967

== ENCOUNTER → 2025-02-05 | Outpatient (CLI) | payer OTHER, SELFPAY ==
--- NOTE | 2025-02-05 17:12 | RAD_ITS ---
PROCEDURE: CHEST PA AND LATERAL 02/05/2025 REASON FOR EXAM: COUGH TECHNIQUE: Procedure Code: RADCXR Modality: DX Procedure: CHEST PA AND LATERAL COMPARISON: None. FINDINGS: Lungs/Pleura: No appreciable focal consolidation, pneumothorax or pleural effusion. Heart/Mediastinum: Within normal limits. Bones/Soft tissues: No significant abnormality. RAD/Chest PA and Lateral IMPRESSION: No evidence of acute pulmonary disease. Reading Location: [id number]
--- OUTSIDE RECORDS SUMMARY | 2025-02-05 17:21 | XMS RPT_ITS | CCD ---
Author Organization [facility] Care Team Providers Care [employer] Operations Officer Name Role Phone Marjorie Sommer Primary Care Provider MARJORIE SOMMER Attending Unavailable MARJORIE SOMMER Primary Care Unavailable SOPHIA BACK Attending Unavailable MARJORIE SOMMER Primary Care Unavailable MARJORIE SOMMER Attending Unavailable MARJORIE SOMMER Primary Care Unavailable Unavailable Primary Care Provider Unavailabl e Rich PA-C, Shawnee Unavailable Unavailable Rich PA-C, Shawnee Unavailable Unavailable Rich PA-C, Shawnee Unavailable Unavailable Oscar Buchanan MD Unavailable Unavailable Rich PA-C, Shawnee Unavailable Unavailable Morris Miguel Jr, MD Unavailable Unavailable Rich PA-C, Shawnee Unavailable Unavailable Rich PA-C, Shawnee Unavailable Unavailable Rich PA-C, Shawnee Unavailable Unavailable Rich PA-C, Shawnee Unavailable Unavailable Rich PA-C, Shawnee Unavailable Unavailable Rich PA-C, Shawnee Unavailable Unavailable Dave CFNP, Jacquelin Unavailable Unavailable Rich PA-C, Shawnee Unavailable Unavailable Dave CFNP, Jacquelin Unavailable Unavailable Dave CFNP, Jacquelin Unavailable Unavailable Rich PA-C, Shawnee Unavailable Unavailable Rich PA-C, Shawnee Unavailable Unavailable Rich PA-C, Shawnee Unavailable Unavailable Rich, Shawnee J Primary Care Unavailable Rich, Shawnee J Attending Unavailable Rich, Shawnee J Primary Care Unavailable Rich, Shawnee J Attending Unavailable Rich, Shawnee J Attending Unavailable Rich, Shawnee J Primary Care Unavailable Rich, Shawnee J Attending Unavailable Rich, Shawnee J Primary Care Unavailable Rich, Shawnee J Attending Unavailable Srinivas Alegria Referring Unavailable Rich, Shawnee J Primary Care Unavailable Steven Palma Attending Unavailable Rich, Shawnee J Primary Care Unavailable Rich PA-C, Shawnee Vitale Unavailable Steven Palma DO Unavailable Unavailable Rich SPAIN, Shawnee Unavailable Unavailable Medications Current Medications Medication Drug Class(es) Dates Sig (Normalized) Sig (Original) 0.5 ML semaglutide 0.5 MG/ML Auto-Injector [Wegovy] (19 sources) Start: 05-26-2024 inject 1 mg by subcutaneous injection every week Wegovy 0.25 mg/0.5 mL subcutaneous pen injector inject (0.25MG) by subcutaneous route every week on the same day of each week 0.25 MG - Active Start: 08-01-2022 End: 08-23-2022 inject 1 mg by subcutaneous injection every week Wegovy 0.25 mg/0.5 mL subcutaneous pen injector inject (0.25MG) by subcutaneous route every week on the same day of each week 0.25 MG - No Longer Active Start: 08-01-2022 inject 1 mg by subcu taneous injection every week Wegovy 0.25 mg/0.5 mL subcutaneous pen injector inject (0.25MG) by subcutaneous route every week on the same day of each week 0.25 MG - Active Start: 08-01-2022 End: 08-01-2022 inject 1 mg by subcutaneous injection every week Wegovy 0.25 mg/0.5 mL subcutaneous pen injector inject (0.25MG) by subcutaneous route every week on the same day of each week 0.25 MG - No Longer Active Start: 07-11-2022 End: 08-01-2022 inject 1 mg by subcutaneous injection every week Wegovy 0.25 mg/0.5 mL subcutaneous pen injector inject (0.25MG) by subcutaneous route every week on the same day of each week 0.25 MG - No Longer Active Start: 07-11-2022 inject 1 mg by subcu taneous injection every week Wegovy 0.25 mg/0.5 mL subcutaneous pen injector inject (0.25MG) by subcutaneous route every week on the same day of each week 0.25 MG - Active hydrOXYzine hydrochloride 25 mg oral tablet (7 sources) Antihistamine Start: 04-18-2023 take 1-2 tablets by mouth three times daily as needed hydroxyzine HCl 25 mg tablet take 1 - 2 Tablet by oral route 3 times every day as needed for itching 25 MG - Active ibuprofen 200 mg oral tablet (2 sources) Nonsteroidal Anti-inflammatory Drug take 1 tablet by mouth every six hours as needed ibuprofen (ADVIL,MOTRIN) 200 MG tablet Take 200 mg by mouth every 6 (six) hours as needed for pain . 0 Active lisinopril 20 mg oral tablet (20 sources) Angiotensin Converting Enzyme Inhibitor Start: 03-06-2023 End: 05-26-2024 take 1 tablet by mouth once daily lisinopril 20 mg tablet take 1 tablet by oral route every day 20 MG - Active Start: 11-29-2021 End: 03-06-2023 take 1 tablet by mouth once daily Lisinopril 10 MG Oral Tablet Take 1 tablet by mouth once daily - No Longer Active triamcinolone acetonide 1 mg/ml topical cream (7 sources) Corticosteroid Start: 04-18-2023 triamcinolone acetonide 0.1 % topical cream apply by topical route 2 times every day a thin layer to the affected area(s) 0.00 - Active Completed/Discontinued Medications Medication Drug Class(es) Dates Sig (Normalized) Sig (Original) 0.5 ML tirzepatide 5 MG/ML Auto-Injector [Mounjaro] (9 sources) Start: 08-23-2022 End: 08-23-2022 inject 1 mg by subcutaneous injection every week Mounjaro 2.5 mg/0.5 mL subcutaneous pen injector inject (2.5MG) by subcutaneous route every week for 4 weeks 2.5 MG - No Longer Active Start: 08-23-2022 inject 1 mg by subcu taneous injection every week Mounjaro 2.5 mg/0.5 mL subcutaneous pen injector inject (2.5MG) by subcutaneous route every week for 4 weeks 2.5 MG - Active 12 hr buPROPion hydrochloride 150 mg extended release oral tablet (4 sources) Aminoketone Start: 06-04-2022 End: 07-11-2022 take 1 tablet by mouth twice daily bupropion HCl SR 150 mg tablet,12 hr sustained-release take 1 tablet by oral route 2 times every day 150 MG - No Longer Active naltrexone hydrochloride 50 mg oral tablet (3 sources) Opioid Antagonist Start: 06-04-2022 End: 07-03-2022 take 0.5 tablet by mouth once daily naltrexone 50 mg tablet take 1/2 tablet by oral route every day - No Longer Active predniSONE 20 mg oral tablet (3 sources) Start: 04-18-2023 End: 04-22-2023 take 2 tablets by mouth once daily, then take 1 tablet by mouth once daily prednisone 20 mg tablet take 2 Tablet by ORAL route every day for 5 days 1 a day for 5 days 2 Tablet - No Longer Active Problems Active Problems Problem Classification Problem Date Documented Da te Episodic/Chronic Allergic reactions (20 sources) Dermatitis, unspecified; Translations: [Dermatitis] Episodic Essential hypertension (20 sources) Essential (primary) hypertension; Translations: [Essential hypertension] Chronic Headache; including migraine (20 sources) Headache; including migraine; Translations: [Acute intractable headache, unspecified headache type] Immunizations and screening for infectious disease (20 sources) Encounter for screening for other viral diseases; Translations: [Screening for viral disease] Episodic Nonspecific chest pain (20 sources) Other chest pain; Translations: [Chest pressure] Episodic Other circulatory disease (20 sources) Elevated blood-pressure reading, without diagnosis of hypertension; Translations: [Elevated blood pressure reading] Episodic Other lower respiratory disease (20 sources) Cough; Translations: [Cough] Episodic Other lower respiratory disease (20 sources) Shortness of breath; Translations: [SOB (shortness of breath)] Episodic Other nervous system disorders (20 sources) Anosmia; Translations: [Loss of smell] Episodic Other nervous system disorders (20 sources) Parageusia; Translations: [Loss of taste] Episodic Other nutritional; endocrine; and metabolic disorders (3 sources) Body mass index 40+ - severely obese; Translations: [BMI 40.0-44.9, adult] Onset: 01-01-2019 01-01-2019 Chronic Other nutritional; endocrine; and metabolic disorders (20 sources) Body mass index (BMI) 45.0-49.9, adult Chronic Other nutritional; endocrine; and metabolic disorders (20 sources) Other obesity; Translations: [Other obesity] Chronic Other nutritional; endocrine; and metabolic disorders (20 sources) Abnormal weight gain; Translations: [Weight gain] Episodic Other upper respiratory disease (20 sources) Nasal congestion; Translations: [Nasal sinus congestion] Episodic Other upper respiratory infections (20 sources) Sore throat symptom; Translations: [Acute pharyngitis, unspecified] Onset: 05-19-2019 05-19-2019 Episodic Viral infection (20 sources) COVID-19; Translations: [Telehealth encounter for confirmed COVID-19] Past or Other Problems Problem Classification Problem Date Documented Da te Episodic/Chronic Residual codes; unclassified (3 sources) History of cholecystectomy; Translations: [S/P laparoscopic cholecystectomy] Onset: 01-01-2019 01-01-2019 Episodic Unclassified (20 sources) Office/outpatient visit,new, mod Onset: 02-08-2020 Resolved: 08-16-2021 Unclassified (20 sources) Office/outpatient visit,est, mod Onset: 02-12-2020 Resolved: 11-29-2021 Unclassified (20 sources) Preventive checkup, est,18-39 yrs Onset: 01-10-2022 Resolved: 08-20-2022 Results Test Name Value Interpretation Reference Range Facility Laboratory - Chemistry and C hemistry - challengeOrdered By: Shawnee Villanueva on 05-26-2024 Albumin [Mass/Vol] 3.7 g/dL 3.4-5.0 [facility] ALP [Catalytic activity/Vol] 95 U/L 46-116 [facility] ALT [Catalytic activity/Vol] 18 U/L 12-78 [facility] AST [Catalytic activity/Vol] 20 U/L 15-37 [facility] Calcium [Mass/Vol] 8.8 mg/dL 8.5-10.1 [facility] Chloride [Moles/Vol] 100 mmol/L 98-107 [facility] Cholesterol [Mass/Vol] 153 mg/dL 0-200 [facility] Cholesterol in HDL [Mass/Vol] 53 mg/dL 40-85 [facility] Cholesterol.total/Cho lesterol in HDL [Mass ratio] 3 {ratio} [facility] Glucose [Mass/Vol] 109 mg/dL High 74-106 [facility] Magnesium [Mass/Vol] 0.7 mg/dL 0.6-1.3 [facility] Magnesium [Mass/Vol] 0.40 mg/dL 0.20-1.00 [facility] Magnesium [Mass/Vol] 92 mg/dL 30-150 [facility] Magnesium [Mass/Vol] 82 mg/dL 65-130 [facility] Potassium [Moles/Vol] 3.8 mmol/L 3.5-5.1 [facility] Sodium [Moles/Vol] 136 mmol/L 136-145 [facility] Urea nitrogen [Mass/Vol] 11 mg/dL 7-18 [facility] Laboratory - Hematology and Cell countsOrdered By: Shawnee Villanueva on 05-26-2024 Basophils/100 WBC (Bld) 0.2 % 0.1-1.2 [facility] Eosinophils/100 WBC (Bld) 1.7 % 0.7-5.8 [facility] Erythrocyte distribution width (RBC) [Ratio] 13.3 % 11.5-14.5 [facility] Hematocrit (Bld) [Volume fraction] 41.7 % 37.0-47.0 [facility] Hemoglobin (Bld) [Mass/Vol] 13.7 g/dL 12.0-16.0 [facility] Lymphocytes/100 WBC (Bld) 22.9 % 15.0-41.0 [facility] MCHC (RBC) [Mass/Vol] 32.9 g/dL 32.0-36.0 [facility] Monocytes/100 WBC (Bld) 7.1 % 4.5-9.2 [facility] No Panel InformationOrdered By: Shawnee Villanueva on 05-26-2024 8.3 10*3/mm 4.0-10.[address] [facility] 4.51 10*6/mm 4.20-5.[address] [facility] 93 um*3 81-[address] [facility] 30.4 Pg 27.0-34.[address] [facility] 289 10*3/mm 130-400 [facility] 68.1 % 50.0-77.[address] [facility] 5.7 10*3/mm 1.4-6.[address] [facility] 1.9 10*3/mm 1.0-3.[address] [facility] 0.6 10*3/mm 0.2-0.8 [facility] 0.14 10*3/mm 0.04-0.36 [facility] 0.02 10*3/mm 0.01-0.08 [facility] 27.8 mmol/L 21.0-32.0 [facility] 118 ml/min/1.73m-se Medic [facility] Comment on above: eGRF Results: 30-59 moderate kidney damage, \\ 15-29 severe kidney damage, \\ <15 kidney failure, 7.6 g/dl 6.4-8.2 [facility] 18 5-35 [facility] 1.53 uIU/mL 0.36-3.74 [facility] No Panel InformationOrdered By: Shawnee Villanueva on 03-06-2023 Not detected Not Detected [facility] Laboratory - Chemistry and C hemistry - challengeOrdered By: Shawnee Villanueva on 08-20-2022 Albumin [Mass/Vol] 3.9 g/dL 3.4-5.0 [facility] ALP [Catalytic activity/Vol] 77 U/L 46-116 [facility] ALT [Catalytic activity/Vol] 19 U/L 12-78 [facility] AST [Catalytic activity/Vol] 14 U/L Low 15-37 [facility] Calcium [Mass/Vol] 9.2 mg/dL 8.5-10.1 [facility] Chloride [Moles/Vol] 101 mmol/L 98-107 [facility] Cholesterol [Mass/Vol] 191 mg/dL 0-200 [facility] Cholesterol in HDL [Mass/Vol] 57 mg/dL 40-85 [facility] Cholesterol.total/Cho lesterol in HDL [Mass ratio] 3 {ratio} [facility] Glucose [Mass/Vol] 97 mg/dL 74-106 [facility] Magnesium [Mass/Vol] 108 mg/dL 65-130 [facility] Magnesium [Mass/Vol] 144 mg/dL 30-150 [facility] Magnesium [Mass/Vol] 1.0 mg/dL 0.6-1.3 [facility] Magnesium [Mass/Vol] 0.60 mg/dL 0.20-1.00 [facility] Potassium [Moles/Vol] 4.1 mmol/L 3.5-5.1 [facility] Sodium [Moles/Vol] 139 mmol/L 136-145 [facility] Urea nitrogen [Mass/Vol] 14 mg/dL 7-18 [facility] Laboratory - Hematology and Cell countsOrdered By: Shawnee Villanueva on 08-20-2022 Basophils/100 WBC (Bld) 0.3 % 0.1-1.2 [facility], [facility] Eosinophils/100 WBC (Bld) 1.6 % 0.7-5.8 [facility] Erythrocyte distribution width (RBC) [Ratio] 13.2 % 11.5-14.5 [facility], [facility] Hematocrit (Bld) [Volume fraction] 42.6 % 37.0-47.0 [facility] [place] Hemoglobin (Bld) [Mass/Vol] 14.0 g/dL 12.0-16.0 [facility] [place] Lymphocytes/100 WBC (Bld) 21.8 % 15.0-41.0 [facility] [place] MCHC (RBC) [Mass/Vol] 32.9 g/dL 32.0-36.0 [facility], [facility] Monocytes/100 WBC (Bld) 6.0 % 4.0-8.0 [facility] No Panel InformationOrdered By: Shawnee Villanueva on 08-20-2022 0.83 uIU/mL 0.36-3.74 [facility] 29 5-35 [facility] 31.5 mmol/L 21.0-32.0 [facility] 63 ml/min/1.73m-se [facility] Comment on above: eGRF Results: 30-59 moderate kidney damage, \\ 15-29 severe kidney damage, \\ <15 kidney failure, 7.3 g/dl 6.4-8.2 [facility] 10.2 10*3/mm 4.0-10.5 [facility] 4.57 10*6/mm 4.20-5.40 [facility] 93 um*3 81-99 [facility] 30.6 Pg 27.0-34.0 [facility] 262 10*3/mm 130-400 [facility] 70.3 % 50.0-77.0 [facility] 7.2 10*3/mm High 1.4-6.5 [facility] 2.2 10*3/mm 1.0-3.0 [facility] 0.6 10*3/mm High 0.0-0.1 [facility] 0.16 10*3/mm 0.04-0.36 [facility] 0.03 10*3/mm 0.01-0.08 [facility] Cytology report Cyto stain.t hin prep Doc (Cvx/Vag)Ordered By: Shawnee Villanueva on 01-10-2022 Cytology report of Cervical or vaginal smear or scraping Cyto stain.thin prep 30-65 [facility] Cytology report of Cervical or vaginal smear or scraping Cyto stain.thin prep COMMENT [facility] Comment on above: SATISFACTORY FOR JANY LUATION. ENDOCERVICAL AND/OR SQUAMOUS METAPLASTIC\\CELLS (ENDOCERVICAL COMPONENT) ARE PRESENT. Z01.419 RUBEN BARNHART, CYTOT ECHNOLOGIST (ASCP) MAKEDA RAY MD, PA THOLOGIST THE PAP SMEAR IS A S CREENING TEST DESIGNED TO AID IN THE\\DETECTION OF PREMALIGNANT AND MALIGNANT CONDITIONS OF THE\\UTERINE CERVIX. IT IS NOT A DIAGNOSTIC PROCEDURE AND\\SHOULD NOT BE USED THE SOLE MEANS OF DETECTING CERVICAL\\CANCER. BOTH FALSE-POSITIVE AND FALSE-NEGATIVE REPORTS DO\\OCCUR. THIS LIQUID BASED TH INPREP(R) PAP TEST WAS SCREENED WITH\\THE USE OF AN IMAGE GUIDED SYSTEM. Cytology report of Cervical or vaginal smear or scraping Cyto stain.thin prep . [facility] [facility] Cytology report of Cervical or vaginal smear or scraping Cyto stain.thin prep Negative NEGATIVE [facility] Comment on above: THIS NUCLEIC ACID AM PLIFICATION TEST DETECTS FOURTEEN HIGH-\\RISK HPV TYPES (16,18,31,33,35,39,45,51,52,56,58,59,66,68)\\WITHOUT DIFFERENTIATION. Cytology report of Cervical or vaginal smear or scraping Cyto stain.thin prepOrdered By: Shawnee Villanueva on 01-10-2022 Cytology report Cyto stain.thin prep Doc (Cvx/Vag) COMMENT [facility] [facility] Comment on above: NEGATIVE FOR INTRAEP ITHELIAL LESION OR MALIGNANCY.\\REACTIVE CELLULAR CHANGES AND/OR REPAIR ARE PRESENT. Laboratory - Chemistry and C hemistry - challengeOrdered By: Shawnee Villanueva on 08-16-2021 Albumin [Mass/Vol] 4.0 g/dL 3.4-5.0 [facility], [facility] ALP [Catalytic activity/Vol] 78 U/L 46-116 [facility] ALT [Catalytic activity/Vol] 23 U/L 12-78 [facility] [facility] AST [Catalytic activity/Vol] 10 U/L Low 15-37 [facility] Calcium [Mass/Vol] 9.1 mg/dL 8.5-10.1 [facility] [facility] Chloride [Moles/Vol] 103 mmol/L 98-107 [facility] [facility] Cholesterol [Mass/Vol] 170 mg/dL 0-200 [facility] Cholesterol in HDL [Mass/Vol] 54 mg/dL 40-85 [facility] Cholesterol.total/Cho lesterol in HDL [Mass ratio] 3 {ratio} [facility] [facility] [facility] Glucose [Mass/Vol] 95 mg/dL 74-106 [facility] Magnesium [Mass/Vol] 98 mg/dL 65-130 [facility] Magnesium [Mass/Vol] 95 mg/dL 30-150 [facility], [facility] Magnesium [Mass/Vol] 0.6 mg/dL 0.6-1.3 [facility] Magnesium [Mass/Vol] 0.60 mg/dL 0.20-1.00 [facility], [facility] Potassium [Moles/Vol] 4.1 mmol/L 3.5-5.1 [facility] Sodium [Moles/Vol] 137 mmol/L 136-145 [facility] Urea nitrogen [Mass/Vol] 9 mg/dL 7-18 [facility] Laboratory - Hematology and Cell countsOrdered By: Shawnee Villanueva on 08-16-2021 Basophils/100 WBC (Bld) 0.4 % 0.1-1.2 [facility], [facility] Eosinophils/100 WBC (Bld) 1.7 % 0.7-5.8 [facility] Erythrocyte distribution width (RBC) [Ratio] 13.5 % 11.5-14.5 [facility], [facility] Hematocrit (Bld) [Volume fraction] 41.8 % 37.0-47.0 [facility] [place] Hemoglobin (Bld) [Mass/Vol] 13.9 g/dL 12.0-16.0 [facility] Lymphocytes/100 WBC (Bld) 26.2 % 15.0-41.0 [facility] MCHC (RBC) [Mass/Vol] 33.3 g/dL 32.0-36.0 [facility] Monocytes/100 WBC (Bld) 7.1 % 4.0-8.0 [facility] [place] No Panel InformationOrdered By: Shawnee Villanueva on 08-16-2021 1.54 uIU/mL 0.36-3.74 [facility] 9.5 10*3/mm 4.0-10.5 [facility] 4.63 10*6/mm 4.20-5.40 [facility] [place] 90 um*3 81-99 [facility] 30.0 Pg 27.0-34.[address] [facility] 249 10*3/mm 130-[address] [facility] [address] [facility] 64.6 % 50.0-77.[address] [facility] [address] [facility] 6.2 10*3/mm 1.4-6.[address] [facility] 2.5 10*3/mm 1.0-3.[address] [facility] [address] [facility] [facility] 0.7 10*3/mm High 0.0-0.[address] [facility] 0.16 10*3/mm 0.04-0.[address] [facility] 0.04 10*3/mm 0.01-0.[address] [facility] [facility] 19 5-[address] [facility] [address] [facility] [facility] 27.7 mmol/L 21.0-32.0 [facility] [employer] 108 ml/min/1.73m-se Medic al [facility] Comment on above: eGRF Results: 30-59 moderate kidney damage, \\ 15-29 severe kidney damage, \\ <15 kidney failure, 7.2 g/dl 6.4-8.2 [facility] CBC WITH DIFFERENTIALon 11-1 0-2020 ABSOLUTE NEUT 3.9 10 3/uL Normal 2.4-6.6 [employer] Comment on above: Performed By: #### 4 [id number] #### [place] [address] Basophils (Bld) [#/Vol] 0.0 10 3/uL Normal 0.0-0.1 [employer] Comment on above: Performed By: #### 4 [id number] #### [place] [address] Basophils/100 WBC (Bld) 0.3 % Normal [employer] Comment on above: Performed By: #### 4 [id number] #### [place] [address] Eosinophils (Bld) [#/Vol] 0.1 10 3/uL Normal 0.1-0.3 [employer] Comment on above: Performed By: #### 4 [id number] #### [employer] [address] [address] Eosinophils/100 WBC (Bld) 1.3 % Normal [facility] [employer] [facility] Comment on above: Performed By: #### 4 [id number] #### [place] [address] Erythrocyte distribution width (RBC) [Ratio] 13.5 % Normal 11.5-14.5 [employer] Comment on above: Performed By: #### 4 [id number] #### [place] [id number] Hematocrit (Bld) [Volume fraction] 44.7 % Normal 33.6-46.8 [facility] rumr: turn off the lights Comment on above: Performed By: #### 4 [id number] #### [address] [address] Hemoglobin (Bld) [Mass/Vol] 14.8 g/dL Normal 11.7-15.8 [employer] Comment on above: Performed By: #### 4 [id number] #### [address] [address] Lymphocytes (Bld) [#/Vol] 2.3 10 3/uL Normal 1.2-3.3 [facility] rumr: turn off the lights Comment on above: Performed By: #### 4 [id number] #### [address] [address] Lymphocytes/100 WBC (Bld) 33.7 % Normal [facility] [employer] [facility] Comment on above: Performed By: #### 4 [id number] #### [employer] [address] [address] MCH (RBC) [Entitic mass] 30.5 pg Normal 27.5-32.3 [facility] rumr: turn off the lights Comment on above: Performed By: #### 4 [id number] #### [employer] [address] [address] MCHC (RBC) [Mass/Vol] 33.1 g/dL Normal 30.7-35.5 [facility] Comment on above: Performed By: #### 4 [id number] #### [address] [address] MCV (RBC) [Entitic vol] 92.0 fL Normal 80.2-99.0 [facility] Comment on above: Performed By: #### 4 [id number] #### [address] [address] Monocytes (Bld) [#/Vol] 0.5 10 3/uL Normal 0.2-0.6 [facility] Comment on above: Performed By: #### 4 [id number] #### [place] [address] Monocytes/100 WBC (Bld) 7.5 % Normal [facility] Comment on above: Performed By: #### 4 [id number] #### [place] [address] Neutrophils/100 WBC (Bld) 57.2 % Normal [facility] Comment on above: Performed By: #### 4 [id number] #### [address] [address] Platelets (Bld) [#/Vol] 241.0 x10 3/uL Normal 150.0-400.0 [facility] Comment on above: Performed By: #### 4 [id number] #### [address] [address] RBC (Bld) [#/Vol] 4.86 x10 6/uL Normal 3.60-5.20 [facility] Comment on above: Performed By: #### 4 [id number] #### [facility] [employer] [address] [address] WBC (Bld) [#/Vol] 6.8 x10 3/uL Normal 4.3-10.3 [facility] [employer] [facility] Comment on above: Performed By: #### 4 [id number] #### [employer] [address] [address] CHEM 02-09-2020 Potassium [Moles/Vol] 3.8 mmol/L Normal 3.6-5.1 [facility] [employer] Comment on above: Performed By: #### 4 [id number] #### [employer] [address] [address] Sodium [Moles/Vol] 139 mmol/L Normal 135-147 [facility] [employer] [facility] Comment on above: Performed By: #### 4 [id number] #### [employer] [address] [address] Chloride [Moles/Vol] 104 mmol/L Normal 96-109 [facility] [employer] Comment on above: Performed By: #### 4 [id number] #### [place] [address] Calcium [Mass/Vol] 9.2 mg/dL Normal 8.4-10.4 [facility] [employer] [facility] Comment on above: Performed By: #### 4 [id number] #### [place] [address] CO2 [Moles/Vol] 24 mmol/L Normal 22-30 [employer] [facility] Comment on above: Performed By: #### 4 [id number] #### [place] [address] Creatinine [Mass/Vol] 0.67 mg/dL Normal 0.52-1.04 [facility] [employer] Comment on above: Performed By: #### 4 [id number] #### [employer] [place] [id number] Glucose [Mass/Vol] 90 mg/dL Normal 65-100 [facility] [employer] [facility] Comment on above: Performed By: #### 4 [id number] #### [employer] [address] [address] Urea nitrogen [Mass/Vol] 10 mg/dL Normal 8-20 [employer] Comment on above: Performed By: #### 4 [id number] #### [employer] [address] [address] D DIMERon 02-09-2020 D DIMER 0.68 mg/L FEU High 0.00-0.50 [employer] Comment on above: Result Comment: Diag nostic Cutoff (PE/DVT): <=0.50mg/L (FEU) The results of this test should always be interpreted in conjunction with pretest probability assessment as a negative indicator for deep-vein thrombosis (DVT) or pulmonary embolism (PE). Performed By: #### 4 [id number] #### [place] [address] GFRon 02-09-2020 GFR/1.73 sq M.predicted MDRD (S/P/Bld) [Vol rate/Area] mL/min/{1.73_m2} Normal [employer] Comment on above: Result Comment: To e stimate the GFR for Americans, multiply the result provided by 1.21. Population mean GFR = 116 ml/min/1.73 sq.m. for ages 18-29 yrs. The MDRD is validated in individuals 18-70 years of age. It is less accurate in patients with extremes of muscle mass, restriction of dietary protein, ingestion of creatine, extra-renal metabolism of creatinine, or treatment with medications that affect renal tubular creatinine secretion. GFR Categories in Chronic Kidney Disease (CKD) Category: GFR(mL/min/1.73m^2) Interpretation: G1* 90 or greater Normal or high G2* 60-89 Mild decrease G3a 45-59 Mild to moderate decrease G3b 30-44 Moderate to severe decrease G4 15-29 Severe decrease G5 14 or less Kidney failure *G1&G2: In the absence of evidence of kidney damage, neither GFR category G1 nor G2 fulfill the criteria for CKD Kidney Int Suppl.2013;3:1-150 Performed By: #### G FR1 #### [address] [address] Basic metabolic panel aka Ch em 8on 02-08-2020 Calcium [Mass/Vol] 9.2 mg/dL 8.4 - 10. 4 mg/dL [facility] Chloride [Moles/Vol] 104 mmol/L 96 - 10 9 mmol/L [facility] CO2 [Moles/Vol] 24 mmol/L 22 - 30 mmol/L [facility] Comprehensive metabolic 2000 panel 0.67 mg/dL 0.52 - 1.04 mg/dL [facility] Glucose [Mass/Vol] 90 mg/dL 65 - 100 mg/dL [facility] Potassium [Moles/Vol] 3.8 mmol/L 3.6 - 5.1 mmol/L [facility] Sodium [Moles/Vol] 139 mmol/L 135 - 147 mmol/L [facility] Urea nitrogen [Mass/Vol] 10 mg/dL 8 - 20 mg/dL [facility] CBC with Differentialon Absolute [facility] 0.5 [facility] Basophils (Bld) [#/Vol] 0.0 10*3/uL [facility] Basophils/100 WBC (Bld) 0.3 % [facility] Eosinophils (Bld) [#/Vol] 0.1 10*3/uL [facility] Eosinophils/100 WBC (Bld) 1.3 % [facility] Erythrocyte distribution width (RBC) [Ratio] 13.5 % 11.5 - 14.5 % [facility] Hematocrit (Bld) [Volume fraction] 44.7 % 33.6 - 46.8 % [facility] Hemoglobin (Bld) [Mass/Vol] 14.8 g/dL 11.7 - 15.8 g/dL [facility] Lymphocytes (Bld) [#/Vol] 2.3 10*3/uL [facility] Lymphocytes/100 WBC (Bld) 33.7 % [facility] MCH (RBC) [Entitic mass] 30.5 pg 27.5 - 32.3 pg [facility] MCHC (RBC) [Mass/Vol] 33.1 g/dL 30.7 - 35.5 g/dl [facility] MCV (RBC) [Entitic vol] 92.0 fL 80.2 - 99 fL [facility] Monocytes/100 WBC (Bld) 7.5 % [facility] Neutrophils (Bld) [#/Vol] 3.9 10*3/uL [facility] Neutrophils/100 WBC (Bld) 57.2 % [facility] Platelets (Bld) [#/Vol] 241.0 10*3/uL [facility] RBC (Bld) [#/Vol] 4.86 10*6/uL [facility] WBC LM Ql (Sput) 6.8 [facility] D-dimer, quantitativeon Fibrin D-dimer FEU (PPP) [Mass/Vol] 0.68 High [facility] Comment on above: Diagnostic Cutoff (P E/DVT): <=0.50mg/L (FEU) The results of this test should always be interpreted in conjunction with pretest probability assessment as a negative indicator for deep-vein thrombosis (DVT) or pulmonary embolism (PE). Interpretation and review of laboratory results Abnormal [employer] GLOMERULAR FILTRATION RATEon 02-08-2020 GFR/1.73 sq M.predicted MDRD (S/P/Bld) [Vol rate/Area] mL/min/{1.73_m2} [facility] Comment on above: To estimate the GFR for Americans, multiply the result provided by 1.21. Population mean GFR = 116 ml/min/1.73 sq.m. for ages 18-29 yrs. The MDRD is validated in individuals 18-70 years of age. It is less accurate in patients with extremes of muscle mass, restriction of dietary protein, ingestion of creatine, extra-renal metabolism of creatinine, or treatment with medications that affect renal tubular creatinine secretion. GFR Categories in Chronic Kidney Disease (CKD) Category: GFR(mL/min/1.73m^2) Interpretation: G1* 90 or greater Normal or high G2* 60-89 Mild decrease G3a 45-59 Mild to moderate decrease G3b 30-44 Moderate to severe decrease G4 15-29 Severe decrease G5 14 or less Kidney failure *G1&G2: In the absence of evidence of kidney damage, neither GFR category G1 nor G2 fulfill the criteria for CKD Kidney Int Suppl.2013;3:1-150 POC INFLUENZA A/B MOLECULARo n 05-19-2019 FLUAV Ag Ql (Nph) Negative Negative [facility] FLUBV Ag Ql (Nph) Negative Negative [facility] Interpretation and review of laboratory results Normal [facility] POC RAPID STREP Aon 05-19-19 20 Interpretation and review of laboratory results Normal [facility] S. pyogenes Ag Ql (Throat) Negative Negative [facility] Abdomen/Pelvis WITH Contrast on 01-16-2019 Abdomen/Pelvis WITH Contrast [facility] [address] [place] [address] Abdomen/Pelvis WITH Contrast MR#: [id number] Acct: [id number] Name: RISA CHANEL Rep #: [id number] : 1990 F 28 From: Jackelyn Longo MD PCP: MARJORIE SOMMER Status: REG CLI Study: Abdomen/Pelvis WITH Contrast Date of Exam: 01/16/19 Exam# [id number] Ordering Dr: Mikie Alvarez MD STUDY: CT ABDOMEN AND PELVIS WITH CONTRAST REASON FOR EXAM: Female, 28 years old. Possible ventral hernia, cholecystectomy 3 weeks ago RADIATION DOSAGE (If Supplied By Facility): CTDIvol = ( 15.94 ) mGy, DLP = ( 1009.81 ) mGycm TECHNIQUE: CT images were obtained from the dome of the diaphragm to the symphysis pubis without oral contrast. IV/Oral Isovue 300 100ml was administered. Sagittal and coronal images were reconstructed. Individualized dose optimization techniques were used for this CT. COMPARISON: None. FINDINGS: The visualized lung bases are unremarkable. The visualized portions of the heart are within normal limits. Normal liver. Gallbladder is resected.. Normal spleen. Normal pancreas. Normal bilateral adrenal glands. Normal right kidney. Normal left kidney. Normal visualized stomach. Normal small intestine. Normal colon. The appendix is visualized and appears normal. There is a ventral abdominal hernia. Laparoscopic port entry site is present in the midline with diastases recti. There is extra abdominal lipomatosis and severely elevated BMI. Normal urinary bladder. There are bilateral tubal occlusion metallic clips. Normal abdominal wall. Normal osseous structures. CT/Abdomen/Pelvis WITH Contrast IMPRESSION: 1. Ventral abdominal hernia/diastasis recti. 2. No acute intra-abdominal findings. Electronically Signed: Jackelyn Longo, at 14:14 EDT Tel , Service support , CC: Mikie Alvarez MD; MARJORIE SOMMER Processing Tech: Signed Normal [facility] Surgery Visit Reporton 01-10 Surgery Visit Report [facility] [address] [place] [address]. [address] [place] [address] OFFICE VISIT Date of Service: 01/09/19 MR#: [id number] Acct: [id number] Name: RISA OSHEA Rep #: [id number] : 1990 Provider: Mikie Alvarez MD Age/Sex: 28/F Location: [facility] Status: Signed Intake Vital Signs12/29/18 Body Mass Index (BMI) 42.7 Intake Visit Reasons: Lap Oumou 12/26 Chief Complaint: Center/right abd pain Nutrition Tech Required: No Is patient in pain?: No Allergies No Known Allergies Allergy (Verified 01/09/19 09:26) Medications Ibuprofen 400 - 600 mg PO DAILY PRN PRN 12/25/18 [History Confirmed 01/09/19] Simethicone [Gas Relief] 375 mg PO DAILY PRN PRN 12/25/18 [History Confirmed 01/09/19] Subjective Details: The patient reports she is doing very well since surgery. She is having no abdominal pain or nausea or vomiting and she is tolerating a regular diet. Objective Details: Her incisions are clean dry and intact and healing well. No abdominal tenderness. Assessment AND Plan Problems 1. Biliary colic K80.50 2. Ventral hernia K43.9 Plan The patient is healing well after her laparoscopic cholecystectomy. She is tolerating a diet and may return to normal activity and diet. During her lap scopic cholecystectomy was noted that she had a ventral hernia from her incision.I would like to get a CT scan to further quantify this ventral hernia and identify the contents. I will call her with results and she will decide if she would like this repaired. Mikie Alvarez MD Pager: [facility] [address] [place] [address], [address] [place] [address] Office: Orders Orders: Coding Level of Care Code Global Post Op Diagnoses Biliary colic K80.50 Ventral hernia K43.9 01/10/19 0843 Date Mikie Alvarez MD Cosigner Signature: Date (if applicable) CC: Normal [facility] CBC W/Diff, Automatedon 09-2 Absolute Neut 4.6 X10 3/uL Normal 2.0-7.7 [facility] Comment on above: Performed By: #### L 100.0100 ####[facility] [address] [place], [address] Basophils/100 WBC (Bld) 0.4 % Normal 0-1 [facility] Comment on above: Performed By: #### L 100.0100 ####[facility] [address] [place], [address] Eosinophils/100 WBC (Bld) 1.9 % Normal 0-5 [facility] Comment on above: Performed By: #### L 100.0100 ####[facility] [address] [place], [address] Erythrocyte distribution width (RBC) [Ratio] 14.3 % Normal 11.6-14.6 [facility] Comment on above: Performed By: #### L 100.0100 ####[facility] [address] [place], [address] Hematocrit (Bld) [Volume fraction] 43.5 % Normal 37-47 [facility] Comment on above: Performed By: #### L 100.0100 ####[facility] [address] [place], [address] Hemoglobin (Bld) [Mass/Vol] 14.0 g/dL Normal 12.0-15.0 [facility] Comment on above: Performed By: #### L 100.0100 ####[facility] [address] [place], [address] IM GRAN % 0.300 % Normal 0.0-0.9 [facility] Comment on above: Result Comment: IG% - Immature Granulocytes (promyelocytes, myelocytes and metamyelocytes) > 1% indicates that a LEFT SHIFT is Present. Performed By: #### L 100.0100 ####[facility] [address] [place], [address] Lymphocytes (Bld) [#/Vol] 2.04 X10 3/uL Normal 0.83-4.51 [facility] Comment on above: Performed By: #### L 100.0100 ####[facility] [address] [place], [address] Lymphocytes/100 WBC (Bld) 27.8 % Normal 19-41 [facility] Comment on above: Performed By: #### L 100.0100 ####[facility] [address] [place], [address] MCH (RBC) [Entitic mass] 28.7 pg Normal 27.0-32.0 [facility] Comment on above: Performed By: #### L 100.0100 ####[facility] [address] [place], [address] MCHC (RBC) [Mass/Vol] 32.2 g/dL Normal 32-36 [facility] Comment on above: Performed By: #### L 100.0100 ####[facility] [address] [place], [address] MCV (RBC) [Entitic vol] 89.3 fL Normal 81-99 [facility] Comment on above: Performed By: #### L 100.0100 ####[facility] [address] [place], [address] Monocytes/100 WBC (Bld) 7.0 % Normal 0-10 [facility] Comment on above: Performed By: #### L 100.0100 ####[facility] [address] [place], [address] Neutrophils/100 WBC (Bld) 62.6 % Normal 47-70 [facility] Comment on above: Performed By: #### L 100.0100 ####[facility] [address] [place], [address] NRBC, FLAGGED 0 % Normal 0-5 [facility] Comment on above: Performed By: #### L 100.0100 ####[facility] [address] [place], [address] Platelet mean volume (Bld) [Entitic vol] 11.5 fL Normal 6.2-12.0 [facility] Comment on above: Performed By: #### L 100.0100 ####[facility] [address] [place], [address] Platelets (Bld) [#/Vol] 245 10*3/uL Normal 150-450 [facility] Comment on above: Performed By: #### L 100.0100 ####[facility] [address] [place], [address] RBC (Bld) [#/Vol] 4.87 M/mm3 Normal 4.2-5.4 [facility] Comment on above: Performed By: #### L 100.0100 ####[facility] [address] [place], [address] RDW SD 46.5 fl High 35.1-43.9 [facility] Comment on above: Performed By: #### L 100.0100 ####[facility] [address] [place], [address] WBC (Bld) [#/Vol] 7.3 10*3/uL Normal 4.4-11.0 [facility] Comment on above: Performed By: #### L 100.0100 ####[facility] [address] [place], [address] Cholangiogram/ O R,Initialon 12-26-2018 Cholesterol [Mass/Vol] [facility] [address] [place] [address] Cholangiogram/ O R,Initial MR#: [id number] Acct: [id number] Name: RISA OSHEA Rep #: [id number] : 1990 F 28 From: Saji Castillo MD PCP: Care Physician, No Primary Status: ADM ROMEL Study: Cholangiogram/ O R,Initial Date of Exam: 12/26/18 Exam# [id number] Ordering Dr: Mikie Alvarez MD CLINICAL HISTORY: Female, 28 years old. Cholecystitis PROCEDURE: CHOLANGIOGRAM - intraoperative FLUOROSCOPY TIME (if supplied): (3:13) minutes/seconds Placement of the catheter and the procedure were performed by: Operating surgeon Fluoroscopy was provided by blood bank technologist, who was present in the room time of the procedure. TECHNIQUE: (4 fluoroscopic guided images were obtained during the examination. FINDINGS: The images submitted for interpretation demonstrating normal caliber biliary tree with normal emptying into the small bowel. No intraluminal filling defects to suggest intraductal stones. There is filling of cystic duct remnant but not the gallbladder consistent with cholecystectomy. For more complete information recommend correlation with surgical notes RAD/Cholangiogram/ O R,Initial IMPRESSION: Fluoroscopic guided intraoperative cholangiogram Electronically Signed: Saji Castillo MD at 16:28 EDT , Service support , CC: No Primary Care Physician; Mikie Alvarez MD Processing Tech: Signed Normal [facility] Comprehensive Metabolic Prof ilon 12-26-2018 Albumin [Mass/Vol] 3.3 g/dL Normal 3.2-5.0 [facility] Comment on above: Performed By: #### L 500.4050 ####[facility] [address] [place], [address] Albumin/Globulin [Mass ratio] 1.1 {ratio} Normal 0.9-2.4 [facility] Comment on above: Performed By: #### L 500.4050 ####[facility] [address] [place], [address] ALK P 153 U/L High 45-117 [facility] Comment on above: Performed By: #### L 500.4050 ####[facility] [address] [place], [address] ALT [Catalytic activity/Vol] 96 U/L High 13-56 [facility] Comment on above: Performed By: #### L 500.4050 ####[facility] [address] [place], [address] AST [Catalytic activity/Vol] 64 U/L High 15-37 [facility] Comment on above: Performed By: #### L 500.4050 ####[facility] [address] [place], [address] Bilirubin [Mass/Vol] 1.80 mg/dL High 0.20-1.00 [facility] Comment on above: Performed By: #### L 500.4050 ####[facility] [address] [place], [address] Calcium [Mass/Vol] 8.3 mg/dL Low 8.5-10.1 [facility] Comment on above: Performed By: #### L 500.4050 ####[facility] [address] [place], [address] Chloride [Moles/Vol] 110 mmol/L High 98-107 [facility] Comment on above: Performed By: #### L 500.4050 ####[facility] [address] [place], [address] CO2 [Moles/Vol] 26.0 mmol/L Normal 21.0-32.0 [facility] Comment on above: Performed By: #### L 500.4050 ####[facility] [address] [place], [address] Creatinine [Mass/Vol] 0.92 mg/dL Normal 0.55-1.02 [facility] Comment on above: Result Comment: The validity of the calculated GFR AND GFRAA in patients over 70 years has not been determined. Clinical correlation is essential. Performed By: #### L 500.4050 ####[facility] [address] [place], [address] EST GFR - AA 93 mL/min Normal >60 [facility] Comment on above: Result Comment: Afri can [place] GFR Calc Performed By: #### L 500.4050 ####[facility] [address] [place], [address] Estimated CRCL 72.00 ml/min Normal [facility] Comment on above: Performed By: #### L 500.4050 ####[facility] [address] [place], [address] GAP 4 Low 5-15 [facility] Comment on above: Performed By: #### L 500.4050 ####[facility] [address] [place], [address] GFR/1.73 sq M predicted among non-blacks MDRD (S/P/Bld) [Vol rate/Area] 77 mL/min/{1.73_m2} Normal >60 [facility] Comment on above: Result Comment: Non- GFR Calc Performed By: #### L 500.4050 ####[facility] [address] [place], [address] Globulin (S) [Mass/Vol] 3.1 g/dL Normal 2.2-4.2 [facility] Comment on above: Performed By: #### L 500.4050 ####[facility] [address] [place], [address] Glucose [Mass/Vol] 92 mg/dL Normal 74-106 [facility] Comment on above: Result Comment: Caryn curtis note revised GLUCOSE reference range effective 2017. Performed By: #### L 500.4050 ####[facility] [address] [place], [address] Potassium [Moles/Vol] 3.6 mmol/L Normal 3.5-5.1 [facility] Comment on above: Performed By: #### L 500.4050 ####[facility] [address] [place], [address] Sodium [Moles/Vol] 140 mmol/L Normal 136-145 [facility] Comment on above: Performed By: #### L 500.4050 ####[facility] [address] [place], [address] T PROT 6.4 g/dL Normal 6.4-8.2 [facility] Comment on above: Performed By: #### L 500.4050 ####[facility] [address] [place], [address] Urea nitrogen [Mass/Vol] 11.9 RATIO Normal 10-20 [facility] Comment on above: Performed By: #### L 500.4050 ####[facility] [address] [place], [address] Urea nitrogen [Mass/Vol] 11 mg/dL Normal 7-18 [facility] Comment on above: Performed By: #### L 500.4050 ####[facility] [address] [place], [address] Discharge Instructionon 12-01 Discharge Instruction [facility] Medical Records Department [address] [place] [address] Instructions for Home/Discharge Instructions 12/26/18 1455 MR#: [id number] Acct: [id number] Name: RISA OSHEA Rep #: [id number] : 1990 28 From: Mikie Alvarez MD PCP: Care Physician, No Primary Status: ADM ROMEL Discharge Diet: Light diet - advance as tolerated Discharge Activity: Return to Normal Activity, May Not Drive - for 2-3 days or while taking narcotic pain medicataions., - - Do not drive, work heavy equipment or sign legal documents for 24 hours. May shower in (days): 1 - with the bandage in place. Additional Activity Instructions:: Pain medication may cause nausea. You should typically eat light foods as you take your pain medications. Pain medication may also cause constipation. If this is a problem for you, please discuss with your doctor. Call your doctor if your incision/area has: Continuous Slow Oozing, Sudden Increased Bleeding, Increased Pain/ Swelling, Increased Redness, Foul Smelling Discharge, Fever of 101 or Higher Call your doctor if you observe: Fever of 101 or Higher Suture Line Care: Avoid Pulling/Pushing, Avoid Pinching/Bending Additional Dressing/Incision Instructions:: Leave operative bandaids on for 2 days. When you remove dressing, leave Steri-Strips on until your follow-up appointment, or until the Steri-Strips fall off on their own. Allergies/Adverse Reactions: Allergies No Known Allergies Allergy (Verified 12/25/18 15:29) Medications to take at Discharge Ibuprofen 400 - 600 mg PO DAILY PRN PRN 12/25/18 Simethicone [Gas Relief] 375 mg PO DAILY PRN PRN 12/25/18 Oxycodone [Oxyir] 5 - 10 mg PO Q4H PRN PRN 7 Days #40 tab 12/26/18 The following prescriptions were given: Oxycodone [Oxyir] 5 - 10 mg PO Q4H PRN PRN 7 Days #40 tab PRN Reason: Pain Score 6-10/10 Transmission Status: Sent to [facility] Primary Care Physician: NOT,DEFINED [NON-STAFF] - Test Results: Test results from this visit will be discussed in further detail at your follow-up appointment, if applicable. Please Follow Up With: Mikie Alvarez MD When: Please call to schedule 2 week follow up appointment. [phone] 12/26/18 1456 Date Mikie Alvarez MD CC: No Primary Care Physician Signed Normal [facility] GALLBLADDERon 12-26-2018 GALLBLADDER Patient: RISA OSHEA : 1990 (/) Acct Num: [id number] Phys: Mikie Alvarez MD Unit Num: [id number] Loc: MS3 PS470-4 Specimen: [id number] Received: 12/26/18 - 1436 Spec Type: GALLBLADDE TISSUES 1 TISSUES: Gallbladder, NOS GROSS DESCRIPTION Received is one container labeled with the patient's name and designated gallbladder. The specimen consists of a gallbladder measuring 9 x 4 x 2.2 cm. The external surface is smooth and glistening. Focally, it is granular, hemorrhagic and contains cautery artifact. The lumen of the gallbladder contains yellow-green mucoid bile and yellow calculi ranging in size from <0.1 to 0.3 cm. The mucosa is bile-stained and without any mass lesions. The gallbladder wall averages 0.2 cm in thickness and is free of mass lesions. Blister Packaging Machine Operator sections of the gallbladder and the cystic duct are submitted in one cassette. / AM:daniel 12/29/18 TC:3 CPT: 27998 HEADER OPERATION: Laparoscopic cholecystectomy with IOC PRE-OP DIAGNOSIS: Cholecystitis and cholelithiasis TISSUE SUBMITTED: Gallbladder MICROSCOPIC DESCRIPTION Slides are reviewed. MICROSCOPIC DIAGNOSIS Gallbladder, cholecystectomy: Chronic cholecystitis, cholelithiasis and cholesterolosis. SJ:daniel 12/30/18 Signed Paulino Staton MD 12/30/18 Normal [facility] Comment on above: Performed By: #### P GALL ####[facility] [address] [facility] [place], [address] Operative Reporton 9 Operative Report [facility] Medical Records Department [address] [place] [address] Operative Report 12/26/18 1453 MR#: [id number] Acct: [id number] Name: RISA OSHEA Rep #: [id number] : 1990 28 From: Mikie Alvarez MD PCP: Care Physician, No Primary Status: ADM ROMEL Y Location: [facility] [id number] Problem List (1) Cholelithiasis Status: Acute Qualifiers: Cholelithiasis location: gallbladder Cholecystitis presence: with cholecystitis Cholecystitis acuity: acute and chronic Biliary obstruction: with biliary obstruction Qualified Code(s): K80.13 - Calculus of gallbladder with acute and chronic cholecystitis with obstruction (2) Biliary colic Status: Acute Report of Operation Date of Procedure: 12/26/18 Pre-Operative Diagnosis: Choledocholithiasis and obstructive jaundice Post-Operative Diagnosis: Same Surgery/Procedure Performed:: Laparoscopic cholecystectomy with cholangiogram Specimen's removed: Gallbladder and contents Description of Procedure: After obtaining informed consent patient was brought back to the operating room. General anesthesia was induced. The abdomen was prepped and draped in usual sterile fashion. A small midline incision was made superior to the umbilicus and deepened to the level of fascia. The fascia was elevated and incised. Next the peritoneum was elevated and incised in the same fashion. Finger sweep was performed and the Henao trocar was placed into the abdomen. The balloon was inflated. The abdomen was inflated to 15 mmHg. Next a camera was introduced into the abdomen and the abdomen was inspected. Next under direct visualization three 5-mm ports were placed one subxiphoid and 2 subcostal. Next the gallbladder was elevated and retracted toward the right shoulder. The peritoneum was stripped from the gallbladder. The infundibulum was located and retracted laterally. Next the triangle of Calot was dissected and the cystic duct and cystic artery were identified. Cholangiograms were performed. A clip was placed in the proximal cystic duct. Incision was made in the right upper quadrant and a Ranfac catheter was placed through this. The anterior cystic duct was snipped with scissors and the Ranfac catheter was placed into this and distally and a clip was placed over this. Next cholangiograms were performed under fluoroscopy. Contrast was instilled in the common bile duct and the common bile duct appeared dilated and there was no flow into the duodenum. Glucagon was given and after 5 minutes reattempt was made and the contrast did flushed easily into the duodenum. Next the distal was removed and a Ranfac catheter was removed from the cystic duct. Three hemolock clips were placed across the cystic duct. The cystic duct was then divided leaving 2 clips on the stump. The cystic artery was clipped and divided in the same fashion. The hook cautery was then used to take the gallbladder off of the gallbladder bed. Hemostasis was obtained. Gallbladder fossa was irrigated and no active bleeding or bile leakage was noted. Next the camera switched to a 5 mm camera and introduced in the subxiphoid port. An Endopouch bag was placed through the umbilical port and the gallbladder was placed into it. The gallbladder was then removed through the umbilical incision. The camera was then reinserted through the umbilical port. The gallbladder fossa was inspected once more and noted to be hemostatic with no leaking bile. The abdomen was suctioned dry. The 5 mm ports were removed under direct visualization. The umbilical port was then removed and the air was removed from the abdomen. Next using an 0 Vicryl suture the umbilical fascia was closed in a [id number]-io-hretj fashion. The umbilical port site was irrigated local anesthetic was administered to all the incisions. All the incisions were closed with interrupted subcuticular 4-0 Monocryl sutures followed by Steri-Strips and dressings. The patient was awoken and taken to PACU in stable condition. - Admit VTE Documentation VTE Present on Admission: No VTE Mechan Device Prophylaxis: SCD's 12/26/18 1455 Date Mikie Alvarez MD CC: No Primary Care Physician; Mikie Alvarez MD Signed Normal [facility] Basic Metabolic Profile (BMP )on 12-25-2018 Calcium [Mass/Vol] 9.2 mg/dL Normal 8.5-10.1 [facility] Comment on above: Performed By: #### L 500.2500 #### [facility] [address] [place], [address] Chloride [Moles/Vol] 105 mmol/L Normal 98-107 [facility] Comment on above: Performed By: #### L 500.2500 #### [facility] [address] [place], [address] CO2 [Moles/Vol] 27.0 mmol/L Normal 21.0-32.0 [facility] Comment on above: Performed By: #### L 500.2500 #### [facility] [address] [place], [address] Creatinine [Mass/Vol] 0.85 mg/dL Normal 0.55-1.02 [facility] Comment on above: Result Comment: The validity of the calculated GFR AND GFRAA in patients over 70 years has not been determined. Clinical correlation is essential. Performed By: #### L 500.2500 #### [facility] [address] [place], [address] EST GFR - AA 102 mL/min Normal >60 [facility] Comment on above: Result Comment: Afri can [place] GFR Calc Performed By: #### L 500.2500 #### [facility] [address] [place], [address] Estimated CRCL 77.93 ml/min Normal [facility] Comment on above: Performed By: #### L 500.2500 #### [facility] [address] [place], [address] GAP 5 Normal 5-15 [facility] Comment on above: Performed By: #### L 500.2500 #### [facility] [address] [place], [address] GFR/1.73 sq M predicted among non-blacks MDRD (S/P/Bld) [Vol rate/Area] 84 mL/min/{1.73_m2} Normal >60 [facility] Comment on above: Result Comment: Non- GFR Calc Performed By: #### L 500.2500 #### [facility] [address] [place], [address] Glucose [Mass/Vol] 96 mg/dL Normal 74-106 [facility] Comment on above: Result Comment: Caryn curtis note revised GLUCOSE reference range effective 2017. Performed By: #### L 500.2500 #### [facility] [address] [place], [address] Potassium [Moles/Vol] 4.7 mmol/L Normal 3.5-5.1 [facility] Comment on above: Result Comment: Mode rate Hemolysis, Result may be falsely increased. Performed By: #### L 500.2500 #### [facility] [address] [place], [address] Sodium [Moles/Vol] 137 mmol/L Normal 136-145 [facility] Comment on above: Performed By: #### L 500.2500 #### [facility] [address] [place], [address] Urea nitrogen [Mass/Vol] 11 mg/dL Normal 7-18 [facility] Comment on above: Performed By: #### L 500.2500 #### [facility] [address] [place], [address] Urea nitrogen [Mass/Vol] 13.0 RATIO Normal 10-20 [facility] Comment on above: Performed By: #### L 500.2500 #### [facility] [address] [place], [address] CBC W/Diff, Automatedon 09-2 Absolute Neut 6.9 X10 3/uL Normal 2.0-7.7 [facility] Comment on above: Performed By: #### L 100.0100 ####[facility] [address] [place], [address] Basophils/100 WBC (Bld) 0.3 % Normal 0-1 [facility] Comment on above: Performed By: #### L 100.0100 ####[facility] [address] [place], [address] Eosinophils/100 WBC (Bld) 0.5 % Normal 0-5 [facility] Comment on above: Performed By: #### L 100.0100 ####[facility] [address] [place], [address] Erythrocyte distribution width (RBC) [Ratio] 14.0 % Normal 11.6-14.6 [facility] Comment on above: Performed By: #### L 100.0100 ####[facility] [address] [place], [address] Hematocrit (Bld) [Volume fraction] 43.1 % Normal 37-47 [facility] Comment on above: Performed By: #### L 100.0100 ####[facility] [address] [place], [address] Hemoglobin (Bld) [Mass/Vol] 14.2 g/dL Normal 12.0-15.0 [facility] Comment on above: Performed By: #### L 100.0100 ####[facility] [address] [place], [address] IM GRAN % 0.300 % Normal 0.0-0.9 [facility] Comment on above: Result Comment: IG% - Immature Granulocytes (promyelocytes, myelocytes and metamyelocytes) > 1% indicates that a LEFT SHIFT is Present. Performed By: #### L 100.0100 ####[facility] [address] [place], [address] Lymphocytes (Bld) [#/Vol] 1.63 X10 3/uL Normal 0.83-4.51 [facility] Comment on above: Performed By: #### L 100.0100 ####[facility] [address] [place], [address] Lymphocytes/100 WBC (Bld) 17.8 % Low 19-41 [facility] Comment on above: Performed By: #### L 100.0100 ####[facility] [address] [place], [address] MCH (RBC) [Entitic mass] 29.4 pg Normal 27.0-32.0 [facility] Comment on above: Performed By: #### L 100.0100 ####[facility] [address] [place], [address] MCHC (RBC) [Mass/Vol] 32.9 g/dL Normal 32-36 [facility] Comment on above: Performed By: #### L 100.0100 ####[facility] [address] [place], [address] MCV (RBC) [Entitic vol] 89.2 fL Normal 81-99 [facility] Comment on above: Performed By: #### L 100.0100 ####[facility] [address] [place], [address] Monocytes/100 WBC (Bld) 5.7 % Normal 0-10 [facility] Comment on above: Performed By: #### L 100.0100 ####[facility] [address] [place], [address] Neutrophils/100 WBC (Bld) 75.4 % High 47-70 [facility] Comment on above: Performed By: #### L 100.0100 ####[facility] [address] [place], [address] NRBC, FLAGGED 0 % Normal 0-5 [facility] Comment on above: Performed By: #### L 100.0100 ####[facility] [address] [place], [address] Platelet mean volume (Bld) [Entitic vol] 11.0 fL Normal 6.2-12.0 [facility] Comment on above: Performed By: #### L 100.0100 ####[facility] [address] [place], [address] Platelets (Bld) [#/Vol] 248 10*3/uL Normal 150-450 [facility] Comment on above: Performed By: #### L 100.0100 ####[facility] [address] [place], [address] RBC (Bld) [#/Vol] 4.83 M/mm3 Normal 4.2-5.4 [facility] Comment on above: Performed By: #### L 100.0100 ####[facility] [address] [place], [address] RDW SD 45.6 fl High 35.1-43.9 [facility] Comment on above: Performed By: #### L 100.0100 ####[facility] [address] [place], [address] WBC (Bld) [#/Vol] 9.1 10*3/uL Normal 4.4-11.0 [facility] Comment on above: Performed By: #### L 100.0100 ####[facility] [address] [place], [address] Emergency Department Summary on 12-25-2018 Emergency Department Summary [facility] Medical Records Department [address] [place] [address] Emergency Department Summary 12/25/18 1615 MR#: [id number] Acct: [id number] Name: RISA OSHEA Rep #: [id number] : 1990 28 From: Zuhair Roman MD PCP: Care Physician, No Primary Status: REG ER History of Present Illness Chief Complaint: Abd Pain Detail of Chief Complaint: Right upper quadrant pain Informant: Patient Onset: Month(s) - For approximately 3 months Context: Sudden Onset Timing: Intermittent Quality: Pain right upper quadrant pain with radiation and nausea/vomiting Location: Right upper quadrant Current Severity: Mild Maximum Severity: Severe Worsened by: Initially fatty meals now any meal Relieved by: Nothing Associated Symptoms: Nausea and vomiting Narrative: Patient is a 28-year-old female status post 3 months ago. Pain started after delivery. She initially reported intolerance to greasy and fatty meals. There is a strong family history of cholelithiasis. She now reports any type of food will cause her to have pain in the right upper quadrant. She has had elevated temperatures. She has not had elevated temperature last 24 hours. She still complains of nausea. She denies cardiac respiratory symptoms. She denies urologic symptoms. There is no history of trauma. Prior similar symptoms: Yes Recent Illness/Hospitalizatio n: No - Past Medical History (1) No significant past medical history Status: Acute Past Medical History - Allergies and Home Meds Allergies/Adverse Reactions: Allergies No Known Allergies Allergy (Verified 12/25/18 15:29) Primary Care Physician: NOT,DEFINED [NON-STAFF] - Prior records reviewed: No - Recently moved from [place] Surgical History: - - Lives: Spouse/ Significant Other, With Family Smoking Status: Never smoker Alcohol: None Drugs: None Review of Systems General: Denies: Chills, Fever, Sweats Eyes: Denies: Visual changes - bilaterally, Diplopia ENT: Denies: Rhinorrhea, Sore throat Cardiovascular: Denies: Chest pain, Palpitations Respiratory: Denies: Dyspnea, Cough, Dyspnea on exertion Gastrointestinal: Reports: Abdominal pain, Nausea, Vomiting. Denies: Diarrhea, Constipation, Melena, Hematochezia, -, - Genitourinary: Denies: Dysuria, Hematuria, Frequency Musculoskeletal: Reports: Back pain. Denies: Myalgias, Arthralgias, Neck pain, Swelling, Extremity Pain Skin: Denies: Rash, Wounds Neurological: Denies: Headache, Weakness, Numbness Physical Exam Vital Signs/Narrative: Vital Signs 12/25/18 15:30 98.1 F 79 16 165/99 H 96 Inital Vital Signs reviewed: Yes General: Well nourished, Well developed, No Acute Distress - She does appear uncomfortable. Head: Normocephalic, Atraumatic Eyes: Perrl, EOMI. Negative for: Pale conjunctiva, Scleral icterus ENT: Moist mucous membranes, No rhinorrhea Neck: Supple, Nontender, No lymphadenopathy, No JVD Cardiovascular: Regular rate, Regular rhythm, No murmurs, Normal S1, Normal S2 Respiratory: No distress, CTA bilaterally, Chest nontender Abdomen: Soft, Nondistended, Normal bowel sounds, Tender, Lea's sign Back: Nontender, Normal Inspection. Negative for: CVA tenderness Extremities: Nontender, No edema Skin: Normal color, No rash Neurological: Alert, Oriented x3, Cranial nerves II-XII grossly intact, Normal Strength, Normal Sensation Psychological: Normal affect, Normal Mood Diagnostic/Tx/Re-eval Impressions Gallbladder Ultrasound 12/25/18 16:14 IMPRESSION: Normal liver. Numerous tiny dependent gallstones in the gallbladder without wall thickening or pericholecystic fluid. The common bile duct is upper limits of normal/mildly dilated without a visualized filling defect in the intrahepatic portion of the visualized common bile duct. Normal pancreas and right kidney. Electronically Signed: Sayda Segundo MD at 17:45 EDT , Service support , 12/25/18 16:14 Gallbladder [US] Stat Laboratory Results WBC Corrected WBC RBC Hgb Hct MCV MCH - Medical Decision Making With recent , intolerance to greasy food and family history cholelithiasis with clinical Lea sign will obtain ultrasound to assess for cholelithiasis/cholecy stitis. Blood work was obtained to assess white count, liver enzymes and lipase. This may also represent gastritis/peptic ulcer disease. She has not eaten since 0900 and ultrasound of the right upper quadrant was ordered. Tone is normal. Spoke with surgeon who will begin to see patient for admission. ED Disposition - Plan for ED Patient: Disposition: Acute Care Hospital [facility] Diagnosis: Cholelithiasis, Biliary colic Referrals: NOT,DEFINED [NON-STAFF] - What to do if you have Problems For any increased pain, shortness of breath, bleeding, nausea or vomiting, chest pain, or any unexpected problems, contact your Primary Care Provider. Call [facility] ([phone]) or report to the closest Emergency Room. Call 911 if necessary. 12/25/181942 Date Zuhair Roman MD Cosigner Signature (If Indicated): Date CC: No Primary Care Physician; Mikie Alvarez MD Normal [facility] Gallbladderon 12-25-2018 Gallbladder [facility] Imaging Services [address] [place] [address] Gallbladder MR#: [id number] Acct: [id number] Name: RISA OSHEA Rep #: [id number] : 1990 F 28 From: Sayda Segundo MD PCP: Care Physician, No Primary Status: REG ER Study: Gallbladder Date of Exam: 12/25/18 Exam# [id number] Ordering Dr: Zuhair Roman MD STUDY: ABDOMINAL ULTRASOUND - RIGHT UPPER QUADRANT REASON FOR VISIT: Female, 28 years old right upper quadrant pain with nausea and vomiting. TECHNIQUE: Ultrasound evaluation of the right upper quadrant was performed with real-time and static bob-scale imaging. TECHNICAL QUALITY: Adequate. COMPARISON: None. FINDINGS: Liver: The liver measures 16.5 cm. There is normal echogenicity of the liver. The bile ducts are within normal limits. There is hepatic color flow. The direction of portal flow is hepatopetal. There is no demonstrated mass lesion. Gallbladder: Normal distended gallbladder. The gallbladder wall measures 2.6 mm. There is a negative sonographic Lea's sign. There is no pericholecystic fluid. There are multiple echogenic structures within the gallbladder, consistent with multiple gallstones. Common Bile Duct (C.B.D.): The common bile duct measures 7 mm. Pancreas: Normal head and body of the pancreas. Tail obscured by bowel gas. There is normal echogenicity of the pancreas. There is no demonstrated pancreatic mass or cyst. Right Kidney: Normal size of the right kidney. The right kidney measures 11.9 x 5.5 x 4.4 cm. Normal renal cortex. The right cortex measures 1.3 cm. There is no demonstrated renal mass or cyst. There is no right hydronephrosis. US/Gallbladder IMPRESSION: Normal liver. Numerous tiny dependent gallstones in the gallbladder without wall thickening or pericholecystic fluid. The common bile duct is upper limits of normal/mildly dilated without a visualized filling defect in the intrahepatic portion of the visualized common bile duct. Normal pancreas and right kidney. Electronically Signed: Sayda Segundo MD at 17:45 EDT , Service support , CC: No Primary Care Physician; Zuhair Roman MD Processing Tech: Signed Normal [facility] History and Physical Examon 12-25-2018 History and Physical Exam [facility] Medical Records Department [address] [place] [address] History and Physical 12/25/182013 MR#: [id number] Acct: [id number] Name: RISA OSHEA Rep #: [id number] : 1990 28 From: Mikie Alvarez MD PCP: Care Physician, No Primary Status: ADM IN Y Location: MS3 EC302-5 Problem List (1) Cholelithiasis Status: Acute Qualifiers: Cholelithiasis location: gallbladder Cholecystitis presence: with cholecystitis Cholecystitis acuity: acute and chronic Biliary obstruction: with biliary obstruction Qualified Code(s): K80.13 - Calculus of gallbladder with acute and chronic cholecystitis with obstruction (2) Biliary colic Status: Acute History of Present Illness Date of Admission: 12/25/18 The patient is a 28 year old F who presented to the emergency room with right upper quadrant pain. The patient reports that for the last 3 months she has been having pain in her right upper quadrant. This started with the end of her . She reports that ever since she gave she is been having intermittent right upper quadrant pain but lately she is been having more intense episodes of pain. She says that this morning she had a very intense episode of pain. She still complaining of epigastric pain but it has lessened since this morning. Past Medical History Allergies No Known Allergies Allergy (Verified 12/25/18 15:29) Home Medications: Ambulatory Orders Medication Instructions Recorded NK 12/25/18 Surgical History: - - Lives: Spouse/ Significant Other, With Family Smoking Status: Never smoker Alcohol: None Drugs: None Review of Systems Constitutional: Denies: Anorexia, Fever HEENT: Denies: Difficulty Swallowing Cardiovascular: Denies: Chest Pain Respiratory: Denies: Shortness of Breath Gastrointestinal: Reports: Abdominal Pain. Denies: Nausea, Vomiting Genitourinary: Denies: Dysuria Musculoskeletal: Denies: Arm Pain, Back Pain Skin: Denies: Dryness Psychiatric: Denies: Anxiety Hematologic/ Lymphatic: Denies: Anemia VTE Information - Inpt Only VTE Present on Admission: No VTE Mechan Device Prophylaxis: SCD's Patient Problems: Active and Suspected Problems Cholelithiasis (Acute) Biliary colic (Acute) - Physical Exam General: Alert, Oriented x3 Neck: No JVD Lungs: Normal air movement Cardiovascular: Regular rate, Regular Rhythm Abdomen: Soft, Non-Distended, Tender - Tender in the epigastric region Vital Signs Temp Pulse Resp BP Pulse Ox 98.1 F 76 16 140/74 H 97 12/25/18 15:30 12/25/18 18:31 12/25/18 20:08 12/25/18 18:31 12/25/18 18:31 Oxygen Delivery Method Room Air Weight: 233 lb 11.04 oz Body Mass Index (BMI) 42.7 Laboratory Tests Past 24 Hrs WBC 9.1 Corrected WBC RBC 4.83 Hgb 14.2 Hct 43.1 Clinical Impression(s) from Imaging Studies Gallbladder Ultrasound 12/25/18 16:14 IMPRESSION: Normal liver. Numerous tiny dependent gallstones in the gallbladder without wall thickening or pericholecystic fluid. The common bile duct is upper limits of normal/mildly dilated without a visualized filling defect in the intrahepatic portion of the visualized common bile duct. Normal pancreas and right kidney. Electronically Signed: Sayda Segundo MD at 17:45 EDT , Service support , Assessment/Plan All Active Problems No significant past medical history (Acute) Cholelithiasis (Acute) Biliary colic (Acute) 28-year-old female with cholelithiasis 1. The patient reports that she has been having right upper quadrant pain. She had an episode of this right upper quadrant pain this morning. It is lessening at this point. She does have a normal white count but there is left shift. The patient also has slightly elevated LFTs. Ultrasound showed multiple gallstones in the gallbladder but normal gallbladder thickness. 2. Patient appears to have either acute obstruction of the common bile duct or resolving obstruction. I will admit the patient and start her on antibiotics. I will recheck LFTs in the morning. I explained her that if the LFTs increase I would recommend ERCP. If the LFTs decreased I would recommend laparoscopic cholecystectomy to prevent this from happening in the future. I will keep the patient n.p.o. and on IV fluids with SCDs and PPI. Mikie Alvarez MD Pager: [facility] [address] [place] [address], [address] [place] [address] Office: 12/25/182016 Date Mikie Alvarez MD Cosigner Signature: Date (if applicable) CC: No Primary Care Physician; Mikie Alvarez MD Signed Normal [facility] Lipaseon 12-25-2018 Lipase [Catalytic activity/Vol] 110 U/L Normal 73-393 [facility] Comment on above: Performed By: #### L 500.3400, L501.2450 ####[facility] [address] [place], [address] Liver Profileon 12-25-2018 Albumin [Mass/Vol] 3.7 g/dL Normal 3.2-5.0 [facility] Comment on above: Performed By: #### L 500.3400, L501.2450 #### [facility] [address] [place], [address] ALK P 190 U/L High 45-117 [facility] Comment on above: Performed By: #### L 500.3400, L501.2450 #### [facility] [address] [place], [address] ALT [Catalytic activity/Vol] 116 U/L High 13-56 [facility] Comment on above: Performed By: #### L 500.3400, L501.2450 #### [facility] [address] [place], [address] AST [Catalytic activity/Vol] 189 U/L High 15-37 [facility] Comment on above: Result Comment: Mode rate Hemolysis, Result may be falsely increased. Performed By: #### L 500.3400, L501.2450 #### [facility] [address] [place], [address] Bilirubin [Mass/Vol] 1.30 mg/dL High 0.20-1.00 [facility] Comment on above: Performed By: #### L 500.3400, L501.2450 #### [facility] [address] [place], [address] Bilirubin.direct [Mass/Vol] 0.24 mg/dL Normal 0.00-0.30 [facility] Comment on above: Performed By: #### L 500.3400, [id number] #### [facility] [address] [place], [address] Globulin (S) [Mass/Vol] 4.1 g/dL Normal 2.2-4.2 [facility] Comment on above: Performed By: #### L 500.3400, [id number] #### [facility] [address] [place], [address] T PROT 7.8 g/dL Normal 6.4-8.2 [facility] Comment on above: Performed By: #### L 500.3400, L501.2450 #### [facility] [address] [place], [address] ,Serum,hCG Quali.on 12-25-2018 HCGSQUAL Negative Normal [facility] Comment on above: Performed By: #### L 700.6800 #### [facility] [address] [place], [address] Urinalysis, Completeon 12-25 Bacteria LM.HPF (Urine sed) [#/Area] 0 SEEN Normal None Seen [facility] Comment on above: Order Comment: How w as Urine Obtained? CLEAN CATCH Performed By: #### L 400.0001 #### [facility] [address] [place], [address] MUCUS, URINE 0 SEEN Normal [facility] Comment on above: Order Comment: How w as Urine Obtained? CLEAN CATCH Performed By: #### L 400.0001 #### [facility] [address] [place], [address] RBC (U) [#/Vol] 0 SEEN Normal 0-5 [facility] Comment on above: Order Comment: How w as Urine Obtained? CLEAN CATCH Performed By: #### L 400.0001 #### [facility] [address] [place], [address] SQUAM EPI 0-5 SEEN Normal 5-10 [facility] Comment on above: Order Comment: How w as Urine Obtained? CLEAN CATCH Performed By: #### L 400.0001 #### [facility] [address] [place], [address] WBC (Bld) [#/Vol] 0 SEEN Normal 0-5 [facility] Comment on above: Order Comment: How w as Urine Obtained? CLEAN CATCH Performed By: #### L 400.0001 #### [facility] [address] [place], [address] BILIRUBIN URINE Negative Normal Negative [facility] Comment on above: Order Comment: How w as Urine Obtained? CLEAN CATCH Performed By: #### L 400.0001 #### [facility] [address] [place], [address] Clarity (U) Clear Normal Clear [facility] Comment on above: Order Comment: How w as Urine Obtained? CLEAN CATCH Performed By: #### L 400.0001 #### [facility] [address] [place], [address] Color (U) Yellow Normal Yellow [facility] Comment on above: Order Comment: How w as Urine Obtained? CLEAN CATCH Performed By: #### L 400.0001 #### [facility] [address] [place], [address] GLUCOSE, UR Normal Normal Normal [facility] Comment on above: Order Comment: How w as Urine Obtained? CLEAN CATCH Performed By: #### L 400.0001 #### [facility] [address] [place], [address] KETONE UR Negative Normal Negative [facility] Comment on above: Order Comment: How w as Urine Obtained? CLEAN CATCH Performed By: #### L 400.0001 #### [facility] [address] [place], [address] LEUK ESTERASE Negative Normal Negative [facility] Comment on above: Order Comment: How w as Urine Obtained? CLEAN CATCH Performed By: #### L 400.0001 #### [facility] [address] [place], [address] NITRITE UR Negative Normal Negative [facility] Comment on above: Order Comment: How w as Urine Obtained? CLEAN CATCH Performed By: #### L 400.0001 #### [facility] [address] [place], [address] OCCULT BLOOD-UR Negative Normal Negative [facility] Comment on above: Order Comment: How w as Urine Obtained? CLEAN CATCH Performed By: #### L 400.0001 #### [facility] [address] [facility] [address] pH UR 7.0 Normal 5.0 - 8.0 [facility] Comment on above: Order Comment: How w as Urine Obtained? CLEAN CATCH Performed By: #### L 400.0001 #### [facility] [address] [place], [address] PROT DIPSTX Negative Normal Negative [facility] Comment on above: Order Comment: How w as Urine Obtained? CLEAN CATCH Performed By: #### L 400.0001 #### [facility] [address] [place], [address] SP.GR. DIPSTX 1.010 Normal 1.002-1.030 [facility] Comment on above: Order Comment: How w as Urine Obtained? CLEAN CATCH Performed By: #### L 400.0001 #### [facility] [address] [place], [address] UROBILI Normal Normal Normal [facility] Comment on above: Order Comment: How w as Urine Obtained? CLEAN CATCH Performed By: #### L 400.0001 #### [facility] [address] [place], [address] ANGIO CHESTon 10-20-2018 ANGIO CHEST RISA OSHEA Female [id number] Ordering physician: Mateus Boston LOC:ER [id number] Attending physician: 1990 28 DOS: 10/20/18 Acc#: [id number] Exam/Proc: ANGIO CHEST Dept: COMPUTED TOMOGRAPHY EXAM DESCRIPTION: ANGIO CHEST CLINICAL HISTORY: chest pain COMPARISON: Chest, October 20, 2018 TECHNIQUE: Routine helical CT images were obtained from the lung apices to the lung bases after the uneventful administration of IV contrast. Coronal and sagittal reformats were obtained. 3-D reformats were obtained on a separate workstation. Dose lowering techniques were utilized to include automated exposure control, adjustment of the mA and/or kV according to patient size, and use of iterative reconstruction technique. FINDINGS: Thoracic inlet structures are unremarkable in appearance. No pathologically enlarged hilar or mediastinal lymph nodes. The great vessels, heart and pericardium are unremarkable in size and appearance. No focal infiltrate or pulmonary nodule. No pleural effusion or pneumothorax. The incidentally included portions of the upper abdomen are within normal limits. The CT angiogram portion of the examination shows adequate contrast enhancement of the pulmonary arteries. The main and segmental pulmonary arteries are of normal size. No intraluminal filling defects are seen through the level of the segmental pulmonary arteries and opacified subsegmental pulmonary arteries. IMPRESSION: 1. No evidence of pulmonary embolus. 2. Unremarkable CT of the chest. Electronically signed by: Elroy Rubi MD 10/20/2018 4:20 PM CDT REPORT SIGNATURE ON FILE Electronically Signed Date/Time: 10/20/18 162 Dictated Date/time: 10/20/181619 CC: Normal [facility] BASIC METABOLIC PANELon 09-30 Anion gap [Moles/Vol] 13.0 mmol/L Normal 11- [facility] Comment on above: Performed By: #### C BC, DIFF (MANUAL) #### [facility] [address] [place] [address] Calcium [Mass/Vol] 9.0 mg/dL Normal 8.5-10.1 [facility] Comment on above: Performed By: #### C BC, DIFF (MANUAL) #### [facility] [address] [place] [address] Chloride [Moles/Vol] 106 mmol/L Normal 98-107 [facility] Comment on above: Performed By: #### C BC, DIFF (MANUAL) #### [facility] [address] [place] [address] CO2 [Moles/Vol] 28.0 mmol/L Normal 21-32 [facility] Comment on above: Performed By: #### C BC, DIFF (MANUAL) #### [address] [place] [address] Creatinine [Mass/Vol] 0.90 mg/dL Normal 0.4-1.2 [facility] Comment on above: Performed By: #### C BC, DIFF (MANUAL) #### [address] [place] [address] GFR AM > 60.0 [facility] Comment on above: Result Comment: THE NORMAL LEVEL OF GFR VARIES ACCORDING TO AGE, SEX, AND BODY SIZE. A GFR LEVEL OF LESS THAN 60 ML/MIN REPRESENTS LOSS OF THE ADULT LEVEL OF NORMAL KIDNEY FUNCTION. Performed By: #### C BC, DIFF (MANUAL) #### [address] [place] [address] GFR/1.73 sq M.predicted MDRD (S/P/Bld) [Vol rate/Area] mL/min/{1.73_m2} [facility] Comment on above: Performed By: #### C BC, DIFF (MANUAL) #### [facility] [address] [place] [address] Glucose [Mass/Vol] 94 mg/dL Normal 70-100 [facility] Comment on above: Performed By: #### C BC, DIFF (MANUAL) #### [address] [place] [address] Potassium [Moles/Vol] 3.8 mmol/L Normal 3.6-5.2 [facility] Comment on above: Performed By: #### C BC, DIFF (MANUAL) #### [facility] [address] [place] [address] Sodium [Moles/Vol] 143 mmol/L Normal 136-147 [facility] Comment on above: Performed By: #### C BC, DIFF (MANUAL) #### [address] [place] [address] Urea nitrogen [Mass/Vol] 12.0 mg/dL Normal 7-18 [facility] Comment on above: Performed By: #### C BC, DIFF (MANUAL) #### [address] [place] [address] CBC with AUTO DIFFon 019 BAS0 % 0.80 % Normal 0-2 [facility] Comment on above: Performed By: #### C BC, DIFF (MANUAL) #### [address] [place] [address] Basophils (Bld) [#/Vol] 0.1 10*3/uL Normal 0-0.1 [facility] Comment on above: Performed By: #### C BC, DIFF (MANUAL) #### [address] [place] [address] Eosinophils (Bld) [#/Vol] 0.2 10*3/uL Normal 0.0-1.80 [facility] Comment on above: Performed By: #### C BC, DIFF (MANUAL) #### [address] [place] [address] Eosinophils/100 WBC (Bld) 2.1 % Normal 0-8 [facility] Comment on above: Performed By: #### C BC, DIFF (MANUAL) #### [address] [place] [address] GRAN # 6.9 K/uL Normal 2.2-9.1 [facility] Comment on above: Performed By: #### C BC, DIFF (MANUAL) #### [address] [place] [address] GRAN % 73.4 % Normal 42-80 [facility] Comment on above: Performed By: #### C BC, DIFF (MANUAL) #### [address] [place] [address] Hematocrit (Bld) [Volume fraction] 43.9 % Normal 37.0-47.0 [facility] Comment on above: Performed By: #### C BC, DIFF (MANUAL) #### [facility] [address] [place] [address] Hemoglobin (Bld) [Mass/Vol] 14.5 g/dL Normal 12.0-16.0 [facility] Comment on above: Performed By: #### C BC, DIFF (MANUAL) #### [address] [place] [address] Lymphocytes (Bld) [#/Vol] 1.7 10*3/uL Normal 1.0-4.0 [facility] Comment on above: Performed By: #### C BC, DIFF (MANUAL) #### [address] [place] [address] Lymphocytes/100 WBC (Bld) 18.6 % Normal 16-48 [facility] Comment on above: Performed By: #### C BC, DIFF (MANUAL) #### [address] [place] [address] MCH (RBC) [Entitic mass] 33.1 g/dL Normal 31.0-36.0 [facility] Comment on above: Performed By: #### C BC, DIFF (MANUAL) #### [address] [place] [address] MCV (RBC) [Entitic vol] 89.1 fL Normal 80-97 [facility] Comment on above: Performed By: #### C BC, DIFF (MANUAL) #### [address] [place] [address] MEAN CORPUSCULAR HGB 29.5 pg Normal 26.0-32.0 [facility] Comment on above: Performed By: #### C BC, DIFF (MANUAL) #### [address] [place] [address] Monocytes (Bld) [#/Vol] 0.5 10*3/uL Normal 0.1-1.7 [facility] Comment on above: Performed By: #### C BC, DIFF (MANUAL) #### [address] [place] [address] Monocytes/100 WBC (Bld) 5.1 % Normal 3-9 [facility] Comment on above: Performed By: #### C BC, DIFF (MANUAL) #### [address] [place] [address] Platelet mean volume (Bld) [Entitic vol] 9.6 fL Normal 6.6-10.5 [facility] Comment on above: Performed By: #### C BC, DIFF (MANUAL) #### [facility] [address] [place] [address] Platelets (Bld) [#/Vol] 276 10*3/uL Normal 140-450 [facility] Comment on above: Performed By: #### C BC, DIFF (MANUAL) #### [facility] [address] [place] [address] RBC (Bld) [#/Vol] 4.92 10*6/uL Normal 4.20-5.50 [facility] Comment on above: Performed By: #### C BC, DIFF (MANUAL) #### [facility] [address] [place] [address] RED CELL DISTRI WIDTH 14.4 % Normal 11.0-15.5 [facility] Comment on above: Performed By: #### C BC, DIFF (MANUAL) #### [facility] [address] [place] [address] WBC (Bld) [#/Vol] 9.4 10*3/uL Normal 4.0-11.0 [facility] Comment on above: Performed By: #### C BC, DIFF (MANUAL) #### [facility] [address] [place] [address] CHEST-PORTABLEon 10-20-2018 CHEST-PORTABLE RISA OSHEA Female [id number] Ordering physician: Mateus Boston LOC:ER [id number] Attending physician: 1990 28 DOS: 10/20/18 Acc#: [id number] Exam/Proc: CHEST-PORTABLE Dept: RADIOLOGY XR CHEST 1 VIEW CLINICAL STATEMENT: chest pain. COMPARISON: 04/15/2005 FINDINGS: Heart is upper normal in size allowing for AP projection. Mediastinal silhouette is unremarkable. No vascular congestion or parenchymal infiltrate is seen. Pleural margins are smooth. Osseous structures appear intact. IMPRESSION: No interval change or acute intrathoracic abnormality. Electronically signed by: Efra Torres MD 10/20/2018 3:24 PM CDT REPORT SIGNATURE ON FILE Electronically Signed Date/Time: 10/20/18 1524 Dictated Date/time: 10/20/18 1524 CC: Normal [facility] D-DIMERon 10-20-2018 D-DIMER 1.39 mg/L FEU High 0.0-0.59 [facility] Comment on above: Result Comment: The cut-off level for exclusion of DVT PE is <0.5 mg/L FEU Results of D-Dimer testing should be interpreted in conjunction with the patients's history and clinical presentation. Increased levels of D-Dimer may occur in the following: DVT,PE,DIC,Trauma,Cancer,Sepsis,,Cirrhosis, Rheumatoid Arthritis and Myocardial Infarction. NOTE: False negative results may be seen in patients on anti-coagulant therapy. Performed By: #### C BC, DIFF (MANUAL) #### [address] [address] ED.PDOCon 10-20-2018 ED.PDOC RISA OSHEA Female [id number] Attending provider: JAVIER ER ER [id number] Mateus Boston 1990 28 DOS: 10/20/18 Hx/Exam - Past Medical History General History: No Cancer, No Diabetes, No HTN - Social History Smoking Status: Never Smoker Hx Alcohol Use: No - History of Present Illness Chief Complaint: CHEST PAIN Note(s) - Physician Notes Additional Notes, See Orders for Details: 10/20/18 16:01Chief complaint right-sided chest pain HPI this patient had a on the september on the 08 of October she started to have right sided chest discomfort mainly with deep breathing she does not feel like she can get a deep breath it is now progressively getting worse it is just not better She has not had problems like this with previous C-sections Review of systems she is not lightheaded or dizzy no fevers no chills no rigors no productive coughing no shortness of breath no exertional component no nausea vomiting diarrhea abdominal pain no urinary or bladder complaints other than GI bleeding problems no lower extremity pain swelling history of thromboembolic disease should travel just the surgery as far as risk factors Family history: Noncontributory Personal history no significant personal history of problems Social history she does not smoke she is not on control she lives at home she is Medications unremarkable Allergies none Physical exam she is awake and alert she does not appear to be in distress at rest her temperature is 37 1 pulse 84 respiration 18 blood pressure was 147/81 with a pulse ox 96% HEENT is unremarkable deck there is no JVD ratio her lungs are clear in all perez I do not appreciate focal rales rhonchi fremitus or forced expiratory wheeze her heart rate regular without significant murmurs rubs gallops PMI however is displaced to towards the right to the parasternal border Third intercostal space Nothing palpatory on the belly extremity exam is unremarkable for asymmetry or swelling skin is cool and dry EKG is currently a normal sinus rhythm normal MO interval normal QRS preserved axis no acute ischemia and no classic changes for pulmonary embolism as Plan check a chest x-ray and laboratory studies D dimer screen ER course her D dimer was still 3 times above normal SMA 7 was unremarkable troponin was negative CBC was normal regular chest x-ray was negative Chest CT was negative Diagnosis of atypical chest pain Status post impression is probable atelectatic in nature she was evaluated for P or other intra lung abnormalities She was told to return for exertional chest pain change in exercise tolerance P Jonas orthopnea lower extremity swelling or sudden onset of increased pain she is to follow with her primary care doctor for further evaluation Next diagnosis hypertension to be confirmed 10/20/18 18:11 (Mateus Boston) EKG - EKG EKG Interpretation: Preliminary ED Interpretation Discharge Screen - Discharge Discharge Problem: Chest pain, Hypertension Disposition: HOME/SELF CARE Condition: Stable Instructions: Essential Hypertension, DI for Atypical Chest Pain Referrals: Rocky Arias [Primary Care Provider] - 5-7 Days (follow up for blood pressure . Return for symptoms as described. Increase fluids x 24hrs) Mateus Mak [AFFILIATE] - Dictated By: Jose Juan Vidal DO Dictated Date/Time:10/20/18 1531 Electronically Signed Date/Time: 10/31/18 1558 Normal [facility] MAGNESIUMon 10-20-2018 Magnesium [Mass/Vol] 2.4 mg/dL Normal 1.8-2.4 [facility] Comment on above: Performed By: #### Shyam BORREGO, DIFF (MANUAL) #### [facility] [address] [place] [address] TROPONINon 10-20-2018 Troponin I.cardiac [Mass/Vol] ng/mL Normal 0-0.1 [facility] Comment on above: Result Comment: Trop onin Reference Range 0.0 - 0.045 ng/ml Negative 0.046 - 0.1 ng/ml Intermediate Risk 0.11 - 0.59 ng/ml High Risk Greater than or equal to 0.6 ng/ml - Indicative of Myocardial Damage Performed By: #### Shyam BORREGO, DIFF (MANUAL) #### [facility] [address] [place] [address] .Auto Diffon 10-07-2018 Ammonia (P) [Mass/Vol] 0.60 10 3/mcL Normal 0.09-1.40 [facility] ([place]) Comment on above: Performed By: #### FIOR HAGAN ANEU #### [address] [address] Basophils (Bld) [#/Vol] 0.00 10 3/mcL Normal 0.00-0.27 [facility] ([place]) Comment on above: Performed By: #### FIOR HAGAN ANEU #### [address] [address] Basophils/100 WBC (Bld) 0.3 % Normal 0.0-2.5 [facility] ([place]) Comment on above: Performed By: #### FIOR HAGAN ANEU #### [address] [address] Eosinophils (Bld) [#/Vol] 0.10 10 3/mcL Normal 0.00-0.65 [facility] ([place]) Comment on above: Performed By: #### FIOR HAGAN ANEU #### [address] [address] Eosinophils/100 WBC (Bld) 0.6 % Normal 0.0-6.0 [facility] ([place]) Comment on above: Performed By: #### FIOR HAGAN ANEU #### [address] [address] Lymphocytes (Bld) [#/Vol] 1.30 10 3/mcL Normal 0.90-4.32 [facility] ([place]) Comment on above: Performed By: #### C FIOR BORREGO, ANEU #### [address] [address] Lymphocytes/100 WBC (Bld) 12.3 % Low 20.0-40.0 [facility] ([place]) Comment on above: Performed By: #### C FIOR BORREGO ANEU #### [address] [address] Monocytes/100 WBC (Bld) 6.1 % Normal 2.0-13.0 Formerly [facility] ([place]) Comment on above: Performed By: #### C FIOR BORREGO ANEU #### [address] [address] Neutrophils/100 WBC (Bld) 80.7 % High 50.0-75.0 Formerly [facility] ([place]) Comment on above: Performed By: #### C FIOR BORREGO ANEU #### [address] [address] .NEUABSon 10-07-2018 Neutrophils (Bld) [#/Vol] 8.50 10 3/mcL High 2.25-8.10 Formerly [facility] ([place]) Comment on above: Performed By: #### C FIOR BORREGO ANEU #### [address] [address] CBCon 10-07-2018 Erythrocyte distribution width (RBC) [Ratio] 14.8 % Normal 11.5-15.5 Formerly [facility] ([place]) Comment on above: Performed By: #### C FIOR BORREGO ANEU #### [address] [address] Hematocrit (Bld) [Volume fraction] 35.2 % Normal 34.0-46.0 Formerly [facility] ([place]) Comment on above: Performed By: #### C FIOR BORREGO, ANEU #### [address] [address] Hemoglobin (Bld) [Mass/Vol] 12.1 G/dL Normal 12.0-16.0 Formerly [facility] ([place]) Comment on above: Performed By: #### FIOR HAGAN ANEU #### [address] [address] MCH (RBC) [Entitic mass] 30.8 pg Normal 27.0-33.0 Formerly [facility] ([place] Comment on above: Performed By: #### FIOR HAGAN, DAVID #### [address] [address] MCHC (RBC) [Mass/Vol] 34.5 G/dL Normal 32.0-36.0 [facility] ([place]) Comment on above: Performed By: #### FIOR HAGAN, ANEU #### [address] [address] MCV (RBC) [Entitic vol] 89.4 fL Normal 80.0-99.0 Formerly [facility] ([place]) Comment on above: Performed By: #### FIOR HAGAN, ANEU #### [address] [address] Platelet mean volume (Bld) [Entitic vol] 10.2 fL Normal 6.6-10.5 Formerly [facility] ([place] Comment on above: Performed By: #### FIOR HAGAN, ANEU #### [address] [address] Platelets (Bld) [#/Vol] 173 10 3/mcL Normal 150-450 [facility]ly [facility] ([place]) Comment on above: Performed By: #### C FIOR BORREGO, ANEU #### [address] [address] RBC (Bld) [#/Vol] 3.94 10 6/mcL Low 4.10-5.30 [facility] ([place]) Comment on above: Performed By: #### FIOR HAGAN, ANEU #### [address] [address] WBC (Bld) [#/Vol] 10.50 10 3/mcL Normal 4.50-10.80 [facility] ([place]) Comment on above: Performed By: #### C BC, ADIFF, ANEU #### [address] [address] .Auto Diffon 10-06-2018 Ammonia (P) [Mass/Vol] 0.70 10 3/mcL Normal 0.09-1.40 [facility]ly [facility] ([place] Comment on above: Performed By: #### C BC, ADIFF, ANEU, ABORH, ANTIS #### [address] [address] Basophils (Bld) [#/Vol] 0.00 10 3/mcL Normal 0.00-0.27 Formerly [facility] ([place] Comment on above: Performed By: #### C BC, ADIFF, ANEU, ABORH, ANTIS #### [address] [address] Basophils/100 WBC (Bld) 0.3 % Normal 0.0-2.5 [facility]ly [facility] ([place]) Comment on above: Performed By: #### C BC, ADIFF, ANEU, ABORH, ANTIS #### [address] [address] Eosinophils (Bld) [#/Vol] 0.10 10 3/mcL Normal 0.00-0.65 [facility]ly [facility] ([place] Comment on above: Performed By: #### C BC, ADIFF, ANEU, ABORH, ANTIS #### [address] [address] Eosinophils/100 WBC (Bld) 0.9 % Normal 0.0-6.0 [facility]ly [facility] ([place]) Comment on above: Performed By: #### C BC, ADIFF, ANEU, ABORH, ANTIS #### [address] [address] Lymphocytes (Bld) [#/Vol] 2.30 10 3/mcL Normal 0.90-4.32 Formerly [facility] ([place] Comment on above: Performed By: #### C BC, ADIFF, ANEU, ABORH, ANTIS #### [address] [address] Lymphocytes/100 WBC (Bld) 18.8 % Low 20.0-40.0 [facility] ([place]) Comment on above: Performed By: #### C BC, ADIFF, ANEU, ABORH, ANTIS #### [address] [address] Monocytes/100 WBC (Bld) 6.1 % Normal 2.0-13.0 [facility] ([place]) Comment on above: Performed By: #### C BC, ADIFF, ANEU, ABORH, ANTIS #### [address] [address] Neutrophils/100 WBC (Bld) 73.9 % Normal 50.0-75.0 [facility] ([place]) Comment on above: Performed By: #### C BC, ADIFF, ANEU, ABORH, ANTIS #### [address] [address] .NEUABSon 10-06-2018 Neutrophils (Bld) [#/Vol] 8.80 10 3/mcL High 2.25-8.10 [facility] ([place] Comment on above: Performed By: #### C BC, ADIFF, ANEU, ABORH, ANTIS #### [address] [address] CBCon 10-06-2018 Erythrocyte distribution width (RBC) [Ratio] 14.5 % Normal 11.5-15.5 [facility] ([place] Comment on above: Performed By: #### C BC, ADIFF, ANEU, ABORH, ANTIS #### [address] [address] Hematocrit (Bld) [Volume fraction] 39.6 % Normal 34.0-46.0 [facility] ([place]) Comment on above: Performed By: #### C BC, ADIFF, ANEU, ABORH, ANTIS #### [address] [address] Hemoglobin (Bld) [Mass/Vol] 13.4 G/dL Normal 12.0-16.0 [facility] ([place] Comment on above: Performed By: #### C BC, ADIFF, ANEU, ABORH, ANTIS #### [address] [address] MCH (RBC) [Entitic mass] 30.1 pg Normal 27.0-33.0 [facility] ([place] Comment on above: Performed By: #### C BC, ADIFF, ANEU, ABORH, ANTIS #### [address] [address] MCHC (RBC) [Mass/Vol] 33.9 G/dL Normal 32.0-36.0 [facility] ([place]) Comment on above: Performed By: #### C BC, ADIFF, ANEU, ABORH, ANTIS #### [address] [address] MCV (RBC) [Entitic vol] 88.8 fL Normal 80.0-99.0 [facility] ([place] Comment on above: Performed By: #### C BC, ADIFF, ANEU, ABORH, ANTIS #### [address] [address] Platelet mean volume (Bld) [Entitic vol] 10.3 fL Normal 6.6-10.5 [facility]ly [facility] ([place] Comment on above: Performed By: #### C BC, ADIFF, ANEU, ABORH, ANTIS #### [address] [address] Platelets (Bld) [#/Vol] 224 10 3/mcL Normal 150-450 [facility] ([place]) Comment on above: Performed By: #### C BC, ADIFF, ANEU, ABORH, ANTIS #### [address] [address] RBC (Bld) [#/Vol] 4.46 10 6/mcL Normal 4.10-5.30 [facility] ([place]) Comment on above: Performed By: #### C BC, ADIFF, ANEU, ABORH, ANTIS #### [address] [address] WBC (Bld) [#/Vol] 12.00 10 3/mcL High 4.50-10.80 [facility] ([place]) Comment on above: Performed By: #### C BC, ADIFF, ANEU, ABORH, ANTIS #### [facility] [address] [place] [address] TABOon 10-06-2018 ABO/Rh Interp Positive [facility] ([place]) Comment on above: Performed By: #### C BC, ADIFF, ANEU, ABORH, ANTIS #### [facility] [address] [place] [address] TABSon 10-06-2018 Antibody Screen Tango Negative Normal [facility] ([place]) Comment on above: Performed By: #### C BC, ADIFF, ANEU, ABORH, ANTIS #### [facility] [address] [place] [address] COMPLETE PREGNANCYon 019 COMPLETE RISA OSHEA Female [id number] Ordering physician: Jeffry Segura LOC:ULTR [id number] Attending physician: Jeffry Segura 1990 28 DOS: 05/22/18 Acc#: [id number] Exam/Proc: COMPLETE Dept: ULTRASOUND EXAM DESCRIPTION: COMPLETE CLINICAL HISTORY: 20 WEEKS ANTATOMY FINDINGS: A single living intrauterine fetus is present with the fetus in a variable position. Placenta is fundal and there is no evidence of previa. The cervix is closed. Amniotic fluid volume is judged to be appropriate. The ovaries were not evaluated. Anatomic survey: 1. Head: Lateral ventricles and posterior fossa are normal. 2. Spine: Normal. 3. Sagittal profile of the face and nasolabial view: normal. 4. Heart: four-chamber, aortic arch: normal. heart rate: 139 bpm. 5. Stomach: normal. 6. Kidneys and bladder: Normal. 7. Anterior abdominal wall at cord insert: normal. 8. Upper and lower extremities: Partially evaluated but grossly normal. 9. 3-vessel cord is evident. Biometry: 1. BPD: 4.8 cm-- 20 weeks, 3 days. 2. HC: 18.3 cm-- 20 weeks, 4 days. 3. AC: 14.7 cm-- 20 weeks, 0 days. 4. FL: 3.4 cm-- 20 weeks, 6 days. 5. HC/AC: 1.24 6. FL/BPD: na 7. FL/HC: 18.8 8. FL/AC: 23.4 9. EFW: 352 grams, 69% 10. Average age by US: 20 weeks, 3 days. EDC: October 06, 2018 11. Average age by LMP: 20 weeks, 0 days. EDC: October 09, 2018 LMP: January 02, 2018 IMPRESSION: 1. Single live intrauterine fetus at 20 weeks 3 days with size equal to dates. 2. Normal anatomic survey. 3. No placenta previa. Electronically signed by: Elroy Rubi MD 05/22/2018 5:08 PM [facility] REPORT SIGNATURE ON FILE Electronically Signed Date/Time: 05/22/181707 Dictated Date/time: 05/22/181707 CC: [facility] HIV 1,2 COMBO AG/ABon 2017 HIV 1,2 COMBO AG/AB Negative Normal Negative [facility] Comment on above: Result Comment: The specimen was non-reactive for HIV-1 and HIV-2 antibodies, and p24 antigen. Based on this non-reactive screen result, further reflexive testing was not indicated and was, therefore, not performed INTERPRETIVE INFORMATION: HIV-1,2 Combo Ag/Ab EIA, w/Reflex This assay should not be used for blood donor screening, associated re-entry protocols, or for screening Human Cells, Tissues, and Cellular and Tissue-Based Products (HCT/P). Performed by [facility], [address] [place] [address] www.[employer], Ken Cano MD, Lab. Director Performed By: #### H IVAGAB #### [facility] #[id number] [place] [address] HEPATITIS B SURFACE ANTIGENo n 03-07-2018 HEPATITIS B SURFACE ANTIGEN Negative Normal Negative [facility] Comment on above: Result Comment: Base d on the non-reactive HBsAg screen, the HBsAg Confirmation test is not indicated and therefore not performed. INTERPRETIVE INFORMATION: Hepatitis B Surface Ag This assay should not be used for blood donor screening, associated re-entry protocols, or for screening Human Cells, Tissues and Cellular and Tissue-Based Products (HCT/P). Performed by [facility], [address] [place] [address] www.[employer], Ken Cano MD, Lab. Director Performed By: #### R UB, HBSAG, VZ #### [facility] #[id number] [address] [place] [address] RUBELLA IgG ANTIBODYon 03-07 RUBELLA IgG ANTIBODY 17.4 IU/mL [facility] Comment on above: Result Comment: INTE RPRETIVE INFORMATION: Rubella Antibody, IgG Less than 9 IU/mL ........ Not Detected 9 - 9.9 IU/mL ............ Indeterminate-Repeat testing in 10-14 days may be helpful. 10 IU/mL or Greater ...... Detected The best evidence for current infection is a significant change on two appropriately timed specimens, where both tests are done in the same laboratory at the same time. The magnitude of the measured result is not indicative of the amount of antibody present. Performed by [facility], [address] [place] [address] www.[employer], Ken Cano MD, Lab. Director Performed By: #### R UB, HBSAG, VZ #### [facility] #[id number] [address] [place] [address] VARICELLA-ZOSTER IgG ABon VARICELLA-ZOSTER IgG AB 692 IV [facility] Comment on above: Result Comment: INTE RPRETIVE INFORMATION: VZV Ab, IgG 134 IV or less ....... Negative - No significant level of detectable IgG varicella- zoster antibody. 135 -165 IV .......... Equivocal - Repeat testing in 10-14 days may be helpful. 166 IV or greater .... Positive - IgG antibody to varicella-zoster detected, which may indicate a current or past varicella-zoster infection. The best evidence for current infection is a significant change on two appropriately timed specimens, where both tests are done in the same laboratory at the same time. Performed by [facility], [address] [place] [address] www.[employer], Ken Cano MD, Lab. Director Performed By: #### R UB, HBSAG, VZ #### [facility] #[id number] [address] [place] [address] GLUCOSE TOLERANCE GESTATIONA Keith 03-06-2018 GLUCOSE TOLERANCE GESTATIONAL Normal [facility] Comment on above: Result Comment: FAST ING 86 Col: 03/06/18 0906 1HR GLU 111 Col: 03/06/18 1006 2HR GLU 124 Col: 03/06/18 1110 3HR GLU 100 Col: 03/06/18 1212 DIABETES Fasting glucose greater than 95 mg/dl 1hr glucose greater than 180 mg/dl 2hr glucose greater than 155 mg/dl 3hr glucose greater than 140 mg/dl Based on 100g glucose load. Positive diagnosis requires that two or more thresholds be met. or exceeded. Performed By: #### G TTG #### [address] [address] RAPID PLASMA REAGINon 2017 RAPID PLASMA REAGIN NONREACTIVE Normal NONREACTIVE [facility] Comment on above: Performed By: #### R MO #### [address] [address] CBC with AUTO DIFFon 018 BAS0 % 0.90 % Normal 0-2 [facility] Comment on above: Performed By: #### C BC, DIFF (MANUAL) #### [address] [address] Basophils (Bld) [#/Vol] 0.1 10*3/uL Normal 0-0.1 [facility] Comment on above: Performed By: #### C BC, DIFF (MANUAL) #### [address] [address] Eosinophils (Bld) [#/Vol] 0.2 10*3/uL Normal 0.0-1.80 [facility] Comment on above: Performed By: #### C BC, DIFF (MANUAL) #### [address] [address] Eosinophils/100 WBC (Bld) 1.5 % Normal 0-8 [facility] Comment on above: Performed By: #### C BC, DIFF (MANUAL) #### [facility] [address] [place] [address] GRAN # 7.7 K/uL Normal 2.2-9.1 [facility] Comment on above: Performed By: #### C BC, DIFF (MANUAL) #### [facility] [address] [place] [address] GRAN % 72.1 % Normal 42-80 [facility] Comment on above: Performed By: #### C BC, DIFF (MANUAL) #### [address] [place] [address] Lymphocytes (Bld) [#/Vol] 2.1 10*3/uL Normal 1.0-4.0 [facility] Comment on above: Performed By: #### C BC, DIFF (MANUAL) #### [address] [place] [address] Lymphocytes/100 WBC (Bld) 19.5 % Normal 16-48 [facility] Comment on above: Performed By: #### C BC, DIFF (MANUAL) #### [address] [place] [address] Monocytes (Bld) [#/Vol] 0.6 10*3/uL Normal 0.1-1.7 [facility] Comment on above: Performed By: #### C BC, DIFF (MANUAL) #### [address] [place] [address] Monocytes/100 WBC (Bld) 6.0 % Normal 3-9 [facility] Comment on above: Performed By: #### C BC, DIFF (MANUAL) #### [address] [place] [address] Platelet mean volume (Bld) [Entitic vol] 10.5 fL Normal 6.6-10.5 [facility] Comment on above: Performed By: #### C BC, DIFF (MANUAL) #### [address] [place] [address] Hematocrit (Bld) [Volume fraction] 41.2 % Normal 37.0-47.0 [facility] Comment on above: Performed By: #### C BC, DIFF (MANUAL) #### [address] [place] [address] Hemoglobin (Bld) [Mass/Vol] 13.9 g/dL Normal 12.0-16.0 [facility] Comment on above: Performed By: #### C BC, DIFF (MANUAL) #### [facility] [address] [place] [address] MCH (RBC) [Entitic mass] 33.7 g/dL Normal 31.0-36.0 [facility] Comment on above: Performed By: #### C BC, DIFF (MANUAL) #### [address] [place] [address] MCV (RBC) [Entitic vol] 90.7 fL Normal 80-97 [facility] Comment on above: Performed By: #### C BC, DIFF (MANUAL) #### [address] [place] [address] MEAN CORPUSCULAR HGB 30.6 pg Normal 26.0-32.0 [facility] Comment on above: Performed By: #### C BC, DIFF (MANUAL) #### [address] [place] [address] Platelets (Bld) [#/Vol] 272 10*3/uL Normal 140-450 [facility] Comment on above: Performed By: #### C BC, DIFF (MANUAL) #### [address] [place] [address] RBC (Bld) [#/Vol] 4.55 10*6/uL Normal 4.20-5.50 [facility] Comment on above: Performed By: #### C BC, DIFF (MANUAL) #### [address] [place] [address] RED CELL DISTRI WIDTH 14.1 % Normal 11.0-15.5 [facility] Comment on above: Performed By: #### C BC, DIFF (MANUAL) #### [address] [place] [address] WBC (Bld) [#/Vol] 10.6 10*3/uL Normal 4.0-11.0 [facility] Comment on above: Performed By: #### C BC, DIFF (MANUAL) #### [address] [place] [address] DIFFERENTIALon 03-04-2018 IMMATURE GRANS NONE SEEN Normal [facility] Comment on above: Performed By: #### C BC, DIFF (MANUAL) #### [address] [place] [address] Band form neutrophils/100 WBC (Bld) 2 % Normal 0-10 [facility] Comment on above: Performed By: #### C BC, DIFF (MANUAL) #### [facility] [address] [place] [address] Eosinophils/100 WBC (Bld) 1 % Normal 0-8 [facility] Comment on above: Performed By: #### C BC, DIFF (MANUAL) #### [address] [place] [address] LARGE PLATELETS FEW Normal [facility] Comment on above: Performed By: #### C BC, DIFF (MANUAL) #### [address] [place] [address] Lymphocytes/100 WBC (Bld) 28 % Normal 16-48 [facility] Comment on above: Performed By: #### C BC, DIFF (MANUAL) #### [address] [place] [address] Monocytes/100 WBC (Bld) 4 % Normal 3-9 [facility] Comment on above: Performed By: #### C BC, DIFF (MANUAL) #### [address] [place] [address] Neutrophils/100 WBC (Bld) 65 % Normal 42-80 [facility] Comment on above: Performed By: #### C BC, DIFF (MANUAL) #### [address] [place] [address] TOTAL CELLS COUNTED 100 #CELLS Normal [facility] Comment on above: Performed By: #### C BC, DIFF (MANUAL) #### [address] [place] [address] GLYCOHEMOGLOBIN (A1C)on Glucose [Mass/Vol] 126 mg/dL Normal [facility] Comment on above: Performed By: #### G LY #### [address] [place] [address] HbA1c (Bld) [Mass fraction] 6.0 % Normal [facility] Comment on above: Result Comment: Inte rpretation of Hgb A1C results: <5.7% Normal 5.7% - 6.4% Prediabetes >6.4% Diabetes SAMPLES FROM PATIENTS WITH HEMOLYTIC ANEMIAS OR THE PRESENCE OF UNSTABLE HEMOGLOBINS LIKE HbSS OR HbSC WILL EXHIBIT DECREASED GLYCATED HGB DUE TO THE SHORTENED LIFE SPAN OF THE RED CELLS.RESULTS ARE NOT RELIABLE IN PATIENTS WITH CHRONIC BLOOD LOSS. Performed By: #### G LY #### [address] [place] [address] UR DRUG SCREEN /W CONFIRMATI ONon 03-04-2018 Amphetamines Ql (U) Negative [facility] Comment on above: Performed By: #### U MDP #### [address] [place] [address] BARBITURATES Negative [facility] Comment on above: Performed By: #### U MDP #### [address] [address] Benzodiazepines Ql (U) Negative [facility] Comment on above: Performed By: #### U MDP #### [address] [address] Cocaine Ql (U) Negative [facility] Comment on above: Performed By: #### U MDP #### [address] [address] Creatinine (U) [Mass/Vol] 151.0 mg/dL [facility] Comment on above: Result Comment: NO R EFERENCE RANGES AVAILABLE FOR RANDOM URINE SPECIMENS. Performed By: #### U MDP #### [address] [place] [address] Methadone Ql (U) Negative [facility] Comment on above: Performed By: #### U MDP #### [address] [place] [address] Opiates Ql (U) Negative [facility] Comment on above: Performed By: #### U MDP #### [address] [address] Phencyclidine Ql (U) Negative [facility] Comment on above: Performed By: #### U MDP #### [address] [address] THC Negative [facility] Comment on above: Performed By: #### U MDP #### [address] [address] DRG SCREEN CUT OFF SEE BELOW [facility] Comment on above: Result Comment: Cannabinoids ........................... 50 Opiates ................................ 300 Cocaine ................................ 150 Amphetamine ............................ 500 Phencyclidine .......................... 25 Barbiturates ........................... 200 Methadone .............................. 300 Benzodiazepines ........................ 200 INTERPRETIVE INFOMRATION: This is a screening test only. False positive and false negative results can occur. The absence of expected drug(s) and/or drug metabolite(s) may indicate non-compliance, inappropriate timing of specimen absorption, diluted/adulterated urine, or limitations of testing. The concentration at which the screening test can detect a drug or metabolite varies within a drug class. The concentration value must be greater than or equal to the cutoff to be reported as positive. The following opiods are not detected in this test: fentanyl,buprenorphine, meperidine, tramadol, and tapentadol. Individual opioid testing is available and can be ordered separately. Performed By: #### [facility] #### [address] [address] Vital Signs Date Time Vital Sign Value Performing Clinician Facility 05-26-2024 13:37-0500 Body height 158.75 cm Shawnee Villanueva PA-C [facility] 05-26-2024 13:37-0500 Body mass index (BMI) [Ratio] 47.01 kg/m2 Shawnee Villanueva PA-C [facility] 05-26-2024 13:37-0500 Body temperature 97.7 [degF] Shawnee Villanueva PA-C [facility] [place] [facility] 05-26-2024 13:37-0500 Body weight 118.48 kg [facility] 05-26-2024 13:37-0500 Diastolic blood pressure 83 mm[Hg] Shawneemagda YO-C [facility] [facility] 05-26-2024 13:37-0500 Heart rate 82 /min Shawneemagda YO-C [facility] [facility] 05-26-2024 13:37-0500 SaO2% (BldA) [Mass fraction] 97 % Shawneemagda [facility] 05-26-2024 13:37-0500 Systolic blood pressure 136 mm[Hg] Shawneemagda [facility] 04-18-2023 12:30-0500 Body height 156.46 cm Jacquelinalma delia Acosta [facility] Medical [facility] 04-18-2023 12:30-0500 Body mass index (BMI) [Ratio] 48.36 kg/m2 Jacquelinalma delia Acosta [facility] Medical [facility] [facility] 04-18-2023 12:30-0500 Body temperature 97.81 [degF] Jacquelinalma delia Acosta [facility] 04-18-2023 12:30-0500 Body weight 118.39 kg Jacquelinalma delia Acosta [facility] 04-18-2023 12:30-0500 Diastolic blood pressure 84 mm[Hg] Jacquelinalma delia Acosta [facility] Medical [facility] [facility] 04-18-2023 12:30-0500 Heart rate 82 /min Jacquelin Acosta [facility] Medical [facility] [facility] 04-18-2023 12:30-0500 SaO2% (BldA) [Mass fraction] 96 % Jacquelinalma delia Acosta [facility] Medical [facility] [facility] 04-18-2023 12:30-0500 Systolic blood pressure 152 mm[Hg] Jacquelinalma delia Acosta [facility] Medical [facility] [facility] 03-06-2023 11:32-0500 Body height 156.72 cm Shawnee YO-C Medical [facility] 03-06-2023 11:32-0500 Body temperature 99 [degF] [facility] [facility] [facility] 03-06-2023 11:32-0500 Diastolic blood pressure 88 mm[Hg] Shawnee Villanueva PA-C [facility] 03-06-2023 11:32-0500 Heart rate 91 /min Shawnee Villanueva PA-C [facility] 03-06-2023 11:32-0500 SaO2% (BldA) [Mass fraction] 95 % Shawnee Villanueva PA-C [facility] 03-06-2023 11:32-0500 Systolic blood pressure 144 mm[Hg] Shawnee Villanueva PA-C [facility] 08-20-2022 15:05-0400 Body height 156.72 cm Shawnee Villanueva PA-C [facility] 08-20-2022 15:05-0400 Body mass index (BMI) [Ratio] 46.98 kg/m2 Shawnee COLVINC [facility] 08-20-2022 15:05-0400 Body temperature 98.2 [degF] Shawnee Villanueva PA-C [facility] 08-20-2022 15:05-0400 Body weight 115.39 kg Shawnee Villanueva PA-C [facility] 08-20-2022 15:05-0400 Diastolic blood pressure 78 mm[Hg] Shawnee COLVINC [facility] 08-20-2022 15:05-0400 Heart rate 71 /min Shawnee Villanueva PA-C [facility] 08-20-2022 15:05-0400 SaO2% (BldA) [Mass fraction] 99 % Shawnee COLVINC [facility] 08-20-2022 15:05-0400 Systolic blood pressure 115 mm[Hg] Shawnee YO-C [facility] 07-11-2022 11:58-0400 Body height 156.97 cm Shawnee COLVINC [facility] 07-11-2022 11:58-0400 Body mass index (BMI) [Ratio] 46.94 kg/m2 Shawnee YO-C [facility] 07-11-2022 11:58-0400 Body temperature 98.2 [degF] Shawnee Villanueva PA-C [facility] 07-11-2022 11:58-0400 Body weight 115.67 kg Shawnee Villanueva PA-C [facility] 07-11-2022 11:58-0400 Diastolic blood pressure 79 mm[Hg] Shawnee Villanueva PA-C [facility] 07-11-2022 11:58-0400 Heart rate 73 /min Shawnee Villanueva PA-C [facility] 07-11-2022 11:58-0400 SaO2% (BldA) [Mass fraction] 98 % Shawnee Villanueva PA-C [facility] 07-11-2022 11:58-0400 Systolic blood pressure 117 mm[Hg] Shawnee Villanueva PA-C [facility] 06-04-2022 13:25-0500 Body height 156.97 cm Jacquelinalma delia Acosta [facility] 06-04-2022 13:25-0500 Body mass index (BMI) [Ratio] 46.75 kg/m2 [facility] 06-04-2022 13:25-0500 Body temperature 98.01 [degF] Jacquelinalma delia Acosta [facility] Medical [facility]ci[facility] 06-04-2022 13:25-0500 Body weight 115.21 kg [facility] 06-04-2022 13:25-0500 Diastolic blood pressure 72 mm[Hg] [facility] [facility] 06-04-2022 13:25-0500 Heart rate 84 /min [facility] [facility] [facility] 06-04-2022 13:25-0500 SaO2% (BldA) [Mass fraction] 97 % [facility] Medical [facility] [facility] 06-04-2022 13:25-0500 Systolic blood pressure 121 mm[Hg] [facility] [facility] [facility] 01-10-2022 10:46-0400 Body height 156.97 cm Shawnee Villanueva PA-C [facility] 01-10-2022 10:46-0400 Body mass index (BMI) [Ratio] 46.39 kg/m2 Shawnee YO-C [facility] 01-10-2022 10:46-0400 Body temperature 97.5 [degF] Shawnee YO-C [facility] 01-10-2022 10:46-0400 Body weight 114.31 kg Shawnee YO-C [facility] 01-10-2022 10:46-0400 Diastolic blood pressure 84 mm[Hg] Shawnee Villanueva PA-C [facility] 01-10-2022 10:46-0400 Heart rate 92 /min Shawnee YO-C [facility] 01-10-2022 10:46-0400 SaO2% (BldA) [Mass fraction] 98 % [facility] YO-C [facility] 01-10-2022 10:46-0400 Systolic blood pressure 129 mm[Hg] Shawnee Villanueva PA-C [facility] 08-16-2021 14:43-0400 Body height 156.97 cm Shawnee YO-C [facility] 08-16-2021 14:43-0400 Body mass index (BMI) [Ratio] 45.98 kg/m2 Shawnee YO-C [facility] 08-16-2021 14:43-0400 Body temperature 98.4 [degF] Shawnee OY-C [facility] 08-16-2021 14:43-0400 Body weight 113.31 kg Shawnee YO-C [facility] 08-16-2021 14:43-0400 Diastolic blood pressure 90 mm[Hg] Shawnee Montemayors PA-C [facility] 08-16-2021 14:43-0400 Heart rate 69 /min Shawnee YO-C [facility] 08-16-2021 14:43-0400 SaO2% (BldA) [Mass fraction] 97 % Shawnee Villanueva PA-C [facility] 08-16-2021 14:43-0400 Systolic blood pressure 139 mm[Hg] Shawnee Villanueva PA-C [facility] 05-19-2019 13:22-0500 BMI (Body Mass Index) 45.73 kg/m2 [facility] 05-19-2019 13:22-0500 Body Temperature 98.29 [degF] [facility] 05-19-2019 13:22-0500 Body weight 113.4 kg [facility] 05-19-2019 13:22-0500 BP Diastolic 82 mm[Hg] [facility] 05-19-2019 13:22-0500 BP Systolic 132 mm[Hg] [facility] 05-19-2019 13:22-0500 Height 157.5 cm [facility] 05-19-2019 13:22-0500 Pulse (Heart Rate) 90 /min [facility] 05-19-2019 13:22-0500 Pulse Oximetry 98 % [facility] 05-19-2019 13:22-0500 Respiratory Rate 16 /min [facility] 01-01-2019 13:05-0400 BMI (Body Mass Index) 42.98 kg/m2 [facility] 01-01-2019 13:05-0400 Body Temperature 98.4 [degF] [facility] 01-01-2019 13:05-0400 Body weight 106.59 kg [facility] 01-01-2019 13:05-0400 BP Diastolic 85 mm[Hg] [facility] 01-01-2019 13:05-0400 BP Systolic 133 mm[Hg] [facility] 01-01-2019 13:05-0400 Height 157.5 cm [facility] 01-01-2019 13:05-0400 Pulse (Heart Rate) 67 /min [facility] 01-01-2019 13:05-0400 Pulse Oximetry 98 % [facility] 01-01-2019 13:05-0400 Respiratory Rate 18 /min [facility] Encounters Encounter Date Encounter Type Care Provider Facility Start: 11-23-2024 End: 11-23-2024 Shawnee Villanueva Work Phone: [facility] Start: 05-27-2024 End: 05-27-2024 Steven Palma Work Phone: [facility] Start: 05-27-2024 ambulatory Steven Palma [facility] Start: 05-26-2024 End: 05-26-2024 Encounter for general adult medical examination without abnormal findings Shawnee Villanueva Work Phone: [facility], [facility] Start: 05-26-2024 End: 05-26-2024 Periodic preventive med est patient 18-39 yrs Shawnee Villanueva Work Phone: [facility] Start: 05-26-2024 ambulatory Shawnee Villanueva [facility] Start: 03-30-2024 End: 03-30-2024 Shawnee Villanueva Work Phone: [facility] Start: 03-30-2024 ambulatory Shawnee Villanueva [facility] Start: 03-20-2024 End: 03-20-2024 Shawnee Villanueva Work Phone: [facility] Start: 03-20-2024 ambulatory Shawnee Villanueva [facility] Start: 11-28-2023 End: 11-28-2023 Shawnee Villanueva Work Phone: [facility] Start: 11-28-2023 ambulatory Shawnee Villanueva [facility] Start: 06-11-2023 End: 06-11-2023 Shawnee Villanueva Work Phone: [facility] Start: 06-11-2023 ambulatory Shawnee Villanueva [facility] Start: 04-18-2023 End: 04-18-2023 Office outpatient visit 15 minutes Jacquelin Acosta Work Phone: [facility] Start: 03-06-2023 End: 03-06-2023 Office outpatient visit 25 minutes Shawnee Villanueva Work Phone: [facility] Start: 09-24-2022 End: 09-24-2022 Shawnee Villanueva Work Phone: Medical [employer] [facility] Start: 08-31-2022 End: 08-31-2022 Shawnee Villanueva Work Phone: Medical [facility] Start: 08-23-2022 End: 08-23-2022 Shawnee Villanueva Work Phone: [facility] [employer] [facility] Start: 08-21-2022 End: 08-21-2022 Shawnee Villanueva Work Phone: Medical [employer] [facility] Start: 08-20-2022 End: 08-20-2022 Encounter for general adult medical examination without abnormal findings Shawnee Villanueva Work Phone: [facility] Start: 08-20-2022 End: 08-20-2022 Periodic preventive med est patient 18-39 yrs Shawnee Villanueva Work Phone: [facility] Start: 08-01-2022 End: 08-01-2022 Morris Miguel Jr Work Phone: Medical [employer] [facility] Start: 07-11-2022 End: 07-11-2022 Office outpatient visit 15 minutes Shawnee Villanueva Work Phone: Medical [employer] [facility] Start: 06-07-2022 End: 06-07-2022 Oscar Buchanan Work Phone: [facility] [employer] [facility] Start: 06-04-2022 End: 06-04-2022 Office outpatient visit 15 minutes Shawnee Villanueva Work Phone: [facility] [employer] [facility] Start: 04-06-2022 End: 04-06-2022 Shawnee Villanueva Work Phone: [facility] [employer] [facility] Start: 01-10-2022 End: 01-10-2022 Encounter for gynecological examination (general) (routine) without abnormal findings Shawnee Villanueva Work Phone: [facility] Start: 01-10-2022 End: 01-10-2022 Periodic preventive med est patient 18-39 yrs Shawnee Chris Villanueva Work Phone: [employer] [facility] Start: 12-13-2021 End: 12-13-2021 Office outpatient visit 15 minutes Shawneemagda Villanueva Work Phone: [employer] [facility] Start: 11-29-2021 End: 11-29-2021 Office outpatient visit 15 minutes Shawneemagda Villanueva Work Phone: [employer] [facility] Start: 08-16-2021 End: 08-16-2021 Office outpatient new 30 minutes Shawnee Villanueva Work Phone: [employer] [facility] Start: 02-12-2020 End: 02-12-2020 Office outpatient visit 15 minutes Norma Kelsey Work Phone: Marycarmen Valdez MD Start: 02-08-2020 End: 02-08-2020 Subsequent hospital visit by physician Ivana Anders Work Phone: [facility] Start: 02-08-2020 End: 02-08-2020 Office outpatient new 30 minutes Ivana Anders Work Phone: Marycarmen Valdez MD Start: 05-19-2019 End: 05-19-2019 Patient encounter procedure MARJORIE Amaya [facility] Start: 05-19-2019 End: 05-19-2019 Office outpatient visit 15 minutes Marjorie Sommer Work Phone: [facility] Comment on above: Sore throat (Primary Dx) Start: 01-02-2019 Patient encounter procedure SOPHIA NAZANIN [facility] Start: 01-01-2019 End: 01-05-2019 Patient encounter procedure MARJORIE SOMMER [facility] Start: 01-01-2019 End: 01-01-2019 Office outpatient new 30 minutes Marjorie Sommer Work Phone: [facility] Comment on above: S/P laparoscopic cho lecystectomy; BMI 40.0-44.9, adult ([facility] Encounter for genera l adult medical examination without abnormal findings Shawnee Villanueva PA-C Medical [facility] Encounter for gynecological examination (general) (routine) without abnormal findings Shawnee Villanueva PA-C [facility] Procedures Date Procedure Procedure Detail Performing Clinician Start: 05-26-2024 End: 05-26-2024 Adm of soc dtr assess 5-15 m Shawnee Villanueva PA-C Start: 05-26-2024 End: 05-26-2024 BP For DM Systolic 130-139 mmHg Shawnee Villanueva PA-C Start: 05-26-2024 End: 05-26-2024 Calc BMI abv up bruna f/u Shawnee Villanueva PA-C Start: 05-26-2024 End: 05-26-2024 Collection venous blood venipuncture Shawnee Villanueva PA-C Start: 05-26-2024 End: 05-26-2024 Depression screen annual Shawnee Villanueva PA-C Start: 05-26-2024 End: 05-26-2024 Narvaez BP less 90 Shawnee Villanueva PA-C Start: 05-26-2024 End: 05-26-2024 DIAST BP 80-89 MM HG Shawnee Villanueva PA-C Start: 05-26-2024 End: 05-26-2024 General health panel Shawnee Villanueva PA-C Start: 05-26-2024 End: 05-26-2024 Lipid panel Shawnee Villanueva PA-C Start: 05-26-2024 End: 05-26-2024 Pre-htn or htn doc, f/u indc Shawnee Villanueva PA-C Start: 05-26-2024 End: 05-26-2024 Scr dep neg, no plan reqd Shawnee Villanueva PA-C Start: 05-26-2024 End: 05-26-2024 Sys BP less 140 Shawnee Villanueva PA-C Start: 05-26-2024 End: 05-26-2024 Tobacco Screening, Non-smoker Shawnee Villanueva PA-C Start: 04-18-2023 End: 04-18-2023 Calc BMI abv up bruna f/u Jacquelin Acosta CFNP Start: 04-18-2023 End: 04-18-2023 Tobacco Screening, Non-smoker Jacquelin Aocsta CFNP Start: 03-06-2023 End: 03-06-2023 BP For DM Systolic = Or > 140 mmHg Shawnee YO-C Start: 03-06-2023 End: 03-06-2023 Narvaez BP less 90 Shawnee YO-C Start: 03-06-2023 End: 03-06-2023 DIAST BP 80-89 MM HG Shawnee YO-C Start: 03-06-2023 End: 03-06-2023 Docrev cur meds by [facility] Shawnee Villanueva PA-C Start: 03-06-2023 End: 03-06-2023 Pre-htn or htn doc, f/u indc Shawnee YO-C Start: 03-06-2023 End: 03-06-2023 Sys BP > or = 140 Shawnee Villanueva PA-C Start: 03-06-2023 End: 03-06-2023 Tobacco Screening, Non-smoker Shawnee COLVINC Start: 08-20-2022 End: 08-20-2022 BP For DM Diastolic <80mmHg Shawnee muniz PA-C Start: 08-20-2022 End: 08-20-2022 BP For DM Systolic <130mmHg Shawnee muniz PA-C Start: 08-20-2022 End: 08-20-2022 Calc BMI abv up bruna f/u Shawnee COLVINC Start: 08-20-2022 End: 08-20-2022 Depression screen annual Shawnee COLVINC Start: 08-20-2022 End: 08-20-2022 Narvaez BP less 90 Shawnee COLVINC Start: 08-20-2022 End: 08-20-2022 Docrev cur meds by [facility] Shawnee Villanueva PA-C Start: 08-20-2022 End: 08-20-2022 LDL For DM 100-129mg/dl Shawnee Love A-C Start: 08-20-2022 End: 08-20-2022 Pre-htn or htn doc, f/u indc Shawnee YO-C Start: 08-20-2022 End: 08-20-2022 Pt rec PONCHO/ARB Shawnee COLVINC Start: 08-20-2022 End: 08-20-2022 Scr dep neg, no plan reqd Shawnee Villanueva PA-C Start: 08-20-2022 End: 08-20-2022 Sys BP less 140 Shawnee Villanueva PA-C Start: 08-20-2022 End: 08-20-2022 Tobacco Screening, Non-smoker Shawnee Villanueva PA-C Start: 07-11-2022 End: 07-11-2022 BP scrn perf rec interval Shawnee Villanueva PA-C Start: 07-11-2022 End: 07-11-2022 Calc BMI abv up bruna f/u Shawnee Villanueva PA-C Start: 07-11-2022 End: 07-11-2022 Docrev cur meds by dylan Villanueva PA-C Start: 06-04-2022 End: 06-04-2022 BP scrn perf rec interval Oscar Buchanan MD Start: 06-04-2022 End: 06-04-2022 Docrev cur meds by dylan Buchanan MD Start: 06-04-2022 End: 06-04-2022 Tobacco Screening, Non-smoker Jacquelin Acosta CFNP Start: 01-10-2022 End: 01-10-2022 BP scrn perf rec interval Shawnee Villanueva PA-C Start: 01-10-2022 End: 01-10-2022 Calc BMI abv up bruna f/u Shawnee Villanueva PA-C Start: 01-10-2022 End: 01-10-2022 Docrev cur meds by dylan Villanueva PA-C Start: 01-10-2022 End: 01-10-2022 Obtaining screen pap smear Shawnee COLVINC Start: 12-13-2021 End: 12-13-2021 BP For DM Diastolic <80mmHg Shawnee YO-C Start: 12-13-2021 End: 12-13-2021 BP For DM Systolic <130mmHg Shawnee YO-C Start: 12-13-2021 End: 12-13-2021 Calc BMI abv up bruna f/u Shawnee Villanueva PA-C Start: 12-13-2021 End: 12-13-2021 Narvaez BP less 90 Shawnee YO-C Start: 12-13-2021 End: 12-13-2021 Docrev cur meds by dylan COLVINC Start: 12-13-2021 End: 12-13-2021 Pre-htn or htn doc, f/u indc Shawnee YO-C Start: 12-13-2021 End: 12-13-2021 Sys BP less 140 Shawnee YO-C Start: 12-13-2021 End: 12-13-2021 Tobacco Screening, Non-smoker Shawnee YO-C Start: 11-29-2021 End: 11-29-2021 BP For DM Diastolic =or>90 mmHg Shawnee YO-C Start: 11-29-2021 End: 11-29-2021 BP For DM Systolic 130-139 mmHg Shawnee YO-C Start: 11-29-2021 End: 11-29-2021 Calc BMI abv up bruna f/u Shawnee YO-C Start: 11-29-2021 End: 11-29-2021 Narvaez BP > or = 90 Shawnee YO-C Start: 11-29-2021 End: 11-29-2021 Docrev cur meds by dylan Villanueva PA-C Start: 11-29-2021 End: 11-29-2021 Pre-htn or htn doc, f/u indc Shawnee YO-C Start: 11-29-2021 End: 11-29-2021 Sys BP less 140 Shawnee COLVINC Start: 08-16-2021 End: 08-16-2021 Calc BMI abv up bruna f/u Shawnee YO-C Start: 08-16-2021 End: 08-16-2021 Collection venous blood venipuncture Shawnee COLVINC Start: 08-16-2021 End: 08-16-2021 Docrev cur meds by dylan Villanueva PA-C Start: 08-16-2021 End: 08-16-2021 General health panel Shawnee Villanueva PA-C Start: 08-16-2021 End: 08-16-2021 LDL For DM <100mg/dl Shawnee Villanueva PA-C Start: 08-16-2021 End: 08-16-2021 Lipid panel Shawnee Villanueva PA-C Start: 08-16-2021 End: 08-16-2021 Tobacco Screening, Non-smoker Shawnee Villanueva PA-C Start: 02-08-2020 Basic metabolic pane l calcium total Ivana Anders Work Phone: Start: 02-08-2020 CBC WITH DIFFERENTIAL L ester Anders Work Phone: Start: 02-08-2020 Fibrin dgradj produc ts d-dimer quantitative Ivana Anders Work Phone: Start: 02-08-2020 GLOMERULAR FILTRATION RATE Ivana Anders Work Phone: Start: 02-08-2020 End: 02-08-2020 Additional supplies, materials, and clinical staff Shawnee Villanueva PA-C Start: 02-08-2020 End: 02-08-2020 Iaadiadoo streptococcus group a Shawnee Villanueva PA-C Start: 02-08-2020 End: 02-08-2020 Infectious agent antigen detection by immunoassay Shawnee Villanueva PA-C Start: 02-08-2020 End: 02-08-2020 Specimen collection for Severe Acute Respiratory S Shawnee Villanueva PA-C Start: 05-19-2019 Influenzavirus antib south assay Marjorie Sommer Work Phone: Start: 05-19-2019 Streptococcus pyogen es antigen assay Marjorie Blanca [place] Work Phone: Start: 01-01-2019 Adult depression scr eening assessment [facility] Plan of Treatment Date Care Activity Detail Author Start: 07-14-2028 Tetanus vaccination TETANUS EVERY 10 YR [facility] Start: 05-28-2025 Risa Oshea Causata Work Phone: Start: 08-23-2023 Risa Oshea Causata Work Phone: Start: 08-17-2022 Risa Oshea [place] [facility] Work Phone: Start: 07-11-2022 Risa Oshea Causata Work Phone: Start: 12-29-2021 Risa Oshea [place] [facility] Work Phone: Start: 02-08-2020 Fibrin D-dimer FEU [Mass/volume] in Platelet poor plasma D-Dimer ([id number]), Ordered on: Marycarmen Valdez [facility] Start: 02-08-2020 Marycarmen Valdez [facility] Start: 01-02-2020 Depression screening using PHQ-9 (Patient Health Questionnaire 9) score Depression Screening (PHQ9) [facility] Start: 11-30-2018 Influenza vaccination given SEQUENTIAL INFLUENZA VACCINE (#1) [facility] Start: 1993 History and physical examination, annual for health maintenance Wellness Visit [facility] Start: 1990 Screening for malignant neoplasm of cervix PAP SMEAR [facility] Start: 1990 Tetanus vaccination TETANUS EVERY 10 YR [facility] Immunizations Immunization Date Immunization Notes Care Provider Fa cility 09-12-2020 COVID-19, mRNA, LNP- S, PF, 30 mcg/0.3 mL dose Shawnee Rich PA-C [facility] Comment on above: Source: Other Regist ry 08-16-2020 COVID-19, mRNA, LNP- S, PF, 30 mcg/0.3 mL dose Shawnee Rich PA-C [facility] Comment on above: Source: Other Regist ry 07-14-2018 tetanus toxoid, redu albino diphtheria toxoid, and acellular pertussis vaccine, adsorbed Shawnee Rich PA-C [facility] Comment on above: Source: Other Regist ry 11-23-1999 measles, mumps and rubella virus vaccine Shawnee Rich PA-C [facility] Comment on above: Source: Other Regist ry 11-25-1995 diphtheria, tetanus toxoids and pertussis vaccine Shawnee Rich PA Medical [facility] Comment on above: Source: Other Regist ry 11-25-1995 trivalent poliovirus vaccine, live, oral [facility] Medical [facility] Comment on above: Source: Other Regist ry 03-02-1994 hepatitis B vaccine, pediatric or pediatric/adolescent dosage [facility] Comment on above: Source: Other Regist ry 12-21-1993 hepatitis B vaccine, pediatric or pediatric/adolescent dosage [facility] Comment on above: Source: Other Regist ry 12-03-1993 trivalent poliovirus vaccine, live, oral [facility] Comment on above: Source: Other Regist ry 03-08-1993 hepatitis B vaccine, pediatric or pediatric/adolescent dosage [facility] Comment on above: Source: Other Regist ry 12-04-1991 diphtheria, tetanus toxoids and pertussis vaccine [facility] Comment on above: Source: Other Regist ry 11-28-1991 haemophilus influenz ae type b vaccine, conjugate unspecified formulation [facility] Comment on above: Source: Other Regist ry 11-28-1991 measles, mumps and rubella virus vaccine [facility] Comment on above: Source: Other Regist ry 02-03-1991 haemophilus influenz ae type b vaccine, conjugate unspecified formulation [facility] Comment on above: Source: Other Regist ry 1990 diphtheria, tetanus toxoids and pertussis vaccine [facility] Comment on above: Source: Other Regist ry 1990 haemophilus influenz ae type b vaccine, conjugate unspecified formulation [facility] Comment on above: Source: Other Regist ry 1990 diphtheria, tetanus toxoids and pertussis vaccine [facility] Comment on above: Source: Other Regist ry 1990 haemophilus influenz ae type b vaccine, conjugate unspecified formulation [facility] Comment on above: Source: Other [place] 1990 trivalent poliovirus vaccine, live, oral Shawnee Villanueva PA-C Medical [facility] Comment on above: Source: Other [place] 1990 diphtheria, tetanus toxoids and pertussis vaccine Shawnee Villanueva PA-C Medical [facility] Comment on above: Source: Other [place] 1990 trivalent poliovirus vaccine, live, oral Shawnee Villanueva PA-C Medical [facility] Comment on above: Source: Other [place] Payers Date Payer Category Payer Unknown MMO MED [employer] PPO xxxxxxxxxxxx 2018-Present xxxxxxxxxxxx [id number] 2018 Unknown [id number] 2018 Medicaid [employer] [facility] xxxxxxxxxxx 2018-Present xxxxxxxxxxx [id number] 2018 Medicaid [id number] 1990 Unknown [id number] 1990 Unknown [id number] Unknown [id number] 1990 Unknown [id number] 1990 Unknown [id number] .1078 1990 Unknown [id number] .1079 1990 Unknown [id number] .1078 1990 Unknown [id number] .1079 1990 Unknown [id number] .1079 Medicaid [id number] Private Health Insurance [facility] [id number] Effective for all dates [phone] [address] [place] [address] PPO [id number] Unknown [id number] Social History Date Type Detail Facility Start: 01-01-2019 End: 05-19-2019 Tobacco smoking status NHIS Never smoker [facility] Start: 01-01-2019 End: 05-19-2019 Alcohol intake Current drinker of alcohol (finding) [facility] Start: 01-01-2019 History SDOH Alcohol Frequency 2 [facility] Start: 01-01-2019 History SDOH Social Connections Get Together 5 [facility] Start: 01-01-2019 History SDOH Food Worry 1 [facility] Start: 12-22-2018 Alcohol Comment occasional [facility] Sex Assigned At Not on file [facility] Start: 08-16-2021 Alcohol intake (observable entity) Alcohol Use Details [facility] Start: 08-16-2021 Health-related behavior (observable entity) Caffeine Use Details [facility] Start: 08-16-2021 Tobacco use and exposure Non-Smoking Tobacco Use Details [facility] Sex Assigned At [facility] Start: 06-07-2022 End: 11-23-2024 Tobacco smoking status NHIS Unknown if ever smoked [facility] Start: 06-07-2022 Alcohol intake Alcohol Use Details [facility] Start: 08-20-2022 Alcohol intake (observable entity) Alcohol Use Details [facility] NEGATED: Highlighted rowStart: 08-16-2021 End: 05-26-2024 Tobacco smoking status NHIS Unknown if ever smoked [facility] [employer] NEGATED: Highlighted rowStart: 08-16-2021 History of tobacco use Current non-smoker [facility] Goals Date Patient Goal Desired Activity /State Comment on above: High blood pressure makes your heart work too hard. It can cause heart attack, stroke and kidney disease. Comment on above: LDL or bad cholest jacy can build up and clog your blood vessels. It can cause heart attack or stroke. Comment on above: Eat real food! Meat, veggies, fruit, nuts, berries, and seeds! Avoid processed foods and sugars! Clinical Notes 08-16-2021 to 05-26-2024 Note Date & Type Note Facility 05-26-2024 Evaluation note Type assessment Encounter for ashley machaod adult medical examination without abnormal findings impression During today's Cel[facility] machado Wellness Visit, we performed the following services:-Update the patient's medical & family historypap is up to date-Measurement of weight, blood pressure, BMI and other vital signs-Update the list of patient's medical providers and suppliers that are regularly involved in their care-Screening for depression-Depending on age, screening for cognitive impairment and review of the patient's functional ability and level of safety as appropriate-Update the patient's schedule for screening including age-appropriate cancer screening. The patient has been provided written details of these guidelines on the Patient Plan document. -Provided information about and offered to assist in completing Advance Directives including Healthcare Power of Plastic Surgeon and Living Will.-Update the patient's list of risk factors and conditions and provided personalized health advice including counseling and handouts regarding healthy lifestyles including avoiding or stopping the use of tobacco and counseling regarding the importance of regular exercise most days of the week as well as healthy diet assessment Essential hypertension impression controlled. cont meds same. chec k labs assessment Weight gain impression will do a trial of wegovy. assessment Body mass index (BMI) 45.0-49.9, adult [facility] [employer] Work Phone: 1([phone] 431-422602-25-2025 History of Present illness Narrative* Encounter Date Complaint History Of Prese nt Illness Problem SEE MEDICATION R ECONCILIATION REGARDING DISCREPANCY THAT NEEDS ADDRESSES. UPDATE MED MODULE ACCORDINGLY Comments: Annette killian ok today, primary concern is her weightFeels frustrated with weight progression, taking one step forward two steps backInsurance wouldn't cover infectible weight loss medicationsFeeling fatigued, tired with her kids keeping her very busySleeps well, 7-8 hoursMood has been good, some thoughts of anxiety but no major concerns, no depressive thoughts annual wellness visit Patient's Lerna 10-year Risk of Developing Hard CHD (Myocardial Infarction and Coronary ) is < 1%. Relevant history is positive for alcohol use. Relevant history is negative for tobacco use, passive vaping exposure and passive smoke exposure. annual wellness visit Problem The symptoms beg an 2 weeks ago. The patient states the symptoms are acute. has a rash on her inner thighs has been there 2-3 weeks does not always bother her but it is itching today. Scratches until she draws blood at times. Hot water irritates. Bumpy in a few places but mostly red. No change in products sore throat Symptoms are ass ociated with exposure to strep. Associated symptoms include headache. Pertinent negatives include cough, dyspnea, facial pain, fatigue, fever, nasal congestion or postnasal drainage. Additional information: body aches, sx started saturday. son has recently tested positive for strep. Comments: no fev ers. 3 days ago woke up with swollen uvual. sides of the neck feel soreno cough annual wellness visit annual wellness visit Relevant h istory is positive for alcohol use. Relevant history is negative for tobacco use. problem check up Comments: had ba d s/e from [employer] so she stopped it. so she did not lose weight. she would like to try GLP1 Comments: has tr ied to lose weight with diet and exercise but no success for months. will lose 10 lb then go back up and is very frustrated with weight gain. discuss weight loss options Pap/Pelvic/CBE hypertension Chest pain New Patient pt has no new co ncerns, she is here to get established COVID 19 follow up Reports feeli ng better since testing postive other loss of taste/smeell and headaches. Monitoring tempature 98.7. Taking vitamin c and daily muttivitamin. Has not been contacted by health department. cough Onset: 3 days ag o. The patient describes the cough as dry. Context: sick family member. There are no aggravating factors. There are no relieving factors. Associated symptoms include chills, cough, fatigue, nasal congestion, night sweats, sinus pressure and sore throat. Pertinent negatives include fever, hoarseness, post-nasal drainage and wheezing. shortness of breath In the inter rubén 3 days ago Episodes occur intermittently. The patient notes chest pressure and chest tightness. Denies aggravating factors. Denies relieving factors. Associated symptoms include chest pressure/discomfort, chills, dry cough, fatigue and night sweats. Pertinent negatives include anxiety, fever, productive cough and wheezing. nasal congestion Onset: 3 days a go. The obstruction occurs in both nostrils. Denies aggravating factors. Denies relieving factors. Associated symptoms include headache. Pertinent negatives include deviated septum, facial pain and nasal drainage (posterior). loss of taste and smell patient lost taste and smell on Saturday night. patient tried to eat and could not smell or taste her food. sore throat Onset: 3 Days. T he severity of the problem is mild. The problem has not changed. Symptoms are associated with sick family member. Symptoms are not associated with exposure to strep, history of allergies and history of asthma. The patient denies aggravating factors. Associated symptoms include chills/rigors, cough, fatigue, headache, nasal congestion and sinus pressure. Pertinent negatives include facial pain, fever, postnasal drainage or wheezing. headache The severity of the problem is moderate. The problem has not changed. The symptoms are constant. Locations affected include entire head. Headache timing includes no pattern. Symptoms are not associated with menses, recent head trauma, recent MVA and stress. Denies aggravating factors. Denies relieving factors. Associated symptoms include dizziness and nausea. Pertinent negatives include blurred vision, fever, neck stiffness, vision loss left, vision loss right and vomiting. Additional information: patient said she is not sure if she has been exposed or not. friends are sick but don't know if they have been tested or not. [employer] Work Phone: [phone]) 921-453002-25-2025 Instructions* Date Instruction Additional Infor larry Counseled on weight reduction Triamcinolone cream. Finish pred nisone Related to Pruritic dermatitis Hypoallergenic produ cts, prednisone taper and triamcinolone. Return if no improvement in 10 days Related to Dermatitis Counseled on weight reduction [employer] Work Phone: 1([phone]) 605-969601-18-2024 Evaluation note* Type Assessment Date assessment Dermatitis assessment Pruritic dermatitis assessment Body mass index (BMI) 45.0-49.9, adult [employer] Work Phone: [phone] 458-375701-18-2024 History of Present illness Narrative* Encounter Date Complaint History Of Prese nt Illness Problem The symptoms beg an 2 weeks ago. The patient states the symptoms are acute. has a rash on her inner thighs has been there 2-3 weeks does not always bother her but it is itching today. Scratches until she draws blood at times. Hot water irritates. Bumpy in a few places but mostly red. No change in products Comments: no fev ers. 3 days ago woke up with swollen uvual. sides of the neck feel soreno cough sore throat Symptoms are ass ociated with exposure to strep. Associated symptoms include headache. Pertinent negatives include cough, dyspnea, facial pain, fatigue, fever, nasal congestion or postnasal drainage. Additional information: body aches, sx started saturday. son has recently tested positive for strep. May-22-2023 annual wellness visit Relevant h istory is positive for alcohol use. Relevant history is negative for tobacco use. 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 so she did not lose weight. she would like to try GLP1 problem check up discuss weight loss options Comments: has tr ied to lose weight with diet and exercise but no success for months. will lose 10 lb then go back up and is very frustrated with weight gain. Pap/Pelvic/CBE hypertension Chest pain New Patient pt has no new co ncerns, she is here to get established COVID 19 follow up Reports feeli ng better since testing postive other loss of taste/smeell and headaches. Monitoring tempature 98.7. Taking vitamin c and daily muttivitamin. Has not been contacted by health department. headache The severity of the problem is moderate. The problem has not changed. The symptoms are constant. Locations affected include entire head. Headache timing includes no pattern. Symptoms are not associated with menses, recent head trauma, recent MVA and stress. Denies aggravating factors. Denies relieving factors. Associated symptoms include dizziness and nausea. Pertinent negatives include blurred vision, fever, neck stiffness, vision loss left, vision loss right and vomiting. Additional information: patient said she is not sure if she has been exposed or not. friends are sick but don't know if they have been tested or not. sore throat Onset: 3 Days. T he severity of the problem is mild. The problem has not changed. Symptoms are associated with sick family member. Symptoms are not associated with exposure to strep, history of allergies and history of asthma. The patient denies aggravating factors. Associated symptoms include chills/rigors, cough, fatigue, headache, nasal congestion and sinus pressure. Pertinent negatives include facial pain, fever, postnasal drainage or wheezing. loss of taste and smell patient lost taste and smell on Saturday night. patient tried to eat and could not smell or taste her food. nasal congestion Onset: 3 days a go. The obstruction occurs in both nostrils. Denies aggravating factors. Denies relieving factors. Associated symptoms include headache. Pertinent negatives include deviated septum, facial pain and nasal drainage (posterior). shortness of breath In the inter rubén 3 days ago Episodes occur intermittently. The patient notes chest pressure and chest tightness. Denies aggravating factors. Denies relieving factors. Associated symptoms include chest pressure/discomfort, chills, dry cough, fatigue and night sweats. Pertinent negatives include anxiety, fever, productive cough and wheezing. cough Onset: 3 days ag o. The patient describes the cough as dry. Context: sick family member. There are no aggravating factors. There are no relieving factors. Associated symptoms include chills, cough, fatigue, nasal congestion, night sweats, sinus pressure and sore throat. Pertinent negatives include fever, hoarseness, post-nasal drainage and wheezing. [employer] Work Phone: [phone] Instructions* Date Instruction Additional Infor mation Triamcinolone cream. Finish pred nisone Related to Pruritic dermatitis Hypoallergenic produ cts, prednisone taper and triamcinolone. Return if no improvement in 10 days Related to Dermatitis Counseled on weight reduction [employer] Work Phone: [phone] 356-612512-06-2023 Evaluation note* Type Assessment Date assessment Pharyngitis due to Streptococcus species assessment Essential hypertension impression check strep swab and treat accor lyricly. impression too high, she stoppe d taking lisinopril 10 mg and just restarted it 3 days ago but bp still too high. increase to lisinopril 20 mg once daily. [employer] Work Phone: [phone] History of Present illness Narrative* Encounter Date Complaint History Of Prese nt Illness Comments: no fev ers. 3 days ago woke up with swollen uvual. sides of the neck feel soreno cough sore throat Symptoms are ass ociated with exposure to strep. Associated symptoms include headache. Pertinent negatives include cough, dyspnea, facial pain, fatigue, fever, nasal congestion or postnasal drainage. Additional information: body aches, sx started saturday. son has recently tested positive for strep. annual wellness visit Relevant h istory is positive for alcohol use. Relevant history is negative for tobacco use. annual wellness visit Comments: had ba d s/e from [employer] so she stopped it. so she did not lose weight. she would like to try GLP1 problem check up discuss weight loss options Comments: has tr ied to lose weight with diet and exercise but no success for months. will lose 10 lb then go back up and is very frustrated with weight gain. Pap/Pelvic/CBE hypertension Chest pain New Patient pt has no new co ncerns, she is here to get established COVID 19 follow up Reports feeli ng better since testing postive other loss of taste/smeell and headaches. Monitoring tempature 98.7. Taking vitamin c and daily muttivitamin. Has not been contacted by health department. headache The severity of the problem is moderate. The problem has not changed. The symptoms are constant. Locations affected include entire head. Headache timing includes no pattern. Symptoms are not associated with menses, recent head trauma, recent MVA and stress. Denies aggravating factors. Denies relieving factors. Associated symptoms include dizziness and nausea. Pertinent negatives include blurred vision, fever, neck stiffness, vision loss left, vision loss right and vomiting. Additional information: patient said she is not sure if she has been exposed or not. friends are sick but don't know if they have been tested or not. sore throat Onset: 3 Days. T he severity of the problem is mild. The problem has not changed. Symptoms are associated with sick family member. Symptoms are not associated with exposure to strep, history of allergies and history of asthma. The patient denies aggravating factors. Associated symptoms include chills/rigors, cough, fatigue, headache, nasal congestion and sinus pressure. Pertinent negatives include facial pain, fever, postnasal drainage or wheezing. loss of taste and smell patient lost taste and smell on Saturday night. patient tried to eat and could not smell or taste her food. nasal congestion Onset: 3 days a go. The obstruction occurs in both nostrils. Denies aggravating factors. Denies relieving factors. Associated symptoms include headache. Pertinent negatives include deviated septum, facial pain and nasal drainage (posterior). shortness of breath In the inter rubén 3 days ago Episodes occur intermittently. The patient notes chest pressure and chest tightness. Denies aggravating factors. Denies relieving factors. Associated symptoms include chest pressure/discomfort, chills, dry cough, fatigue and night sweats. Pertinent negatives include anxiety, fever, productive cough and wheezing. cough Onset: 3 days ag o. The patient describes the cough as dry. Context: sick family member. There are no aggravating factors. There are no relieving factors. Associated symptoms include chills, cough, fatigue, nasal congestion, night sweats, sinus pressure and sore throat. Pertinent negatives include fever, hoarseness, post-nasal drainage and wheezing. [facility] Work Phone: [phone]) [phone] Evaluation note* Type Assessment Date assessment Encounter for ashley machado adult medical examination without abnormal findings impression During today's Celina machado Wellness Visit, we performed the following services:-Update the patient's medical & family history-Measurement of weight, blood pressure, BMI and other vital signs-Update the list of patient's medical providers and suppliers that are regularly involved in their care-Screening for depression-Depending on age, screening for cognitive impairment and review of the patient's functional ability and level of safety as appropriate-Update the patient's schedule for screening including age-appropriate cancer screening. The patient has been provided written details of these guidelines on the Patient Plan document. -Provided information about and offered to assist in completing Advance Directives including Healthcare Power of Plastic Surgeon and Living Will.-Update the patient's list of risk factors and conditions and provided personalized health advice including counseling and handouts regarding healthy lifestyles including avoiding or stopping the use of tobacco and counseling regarding the importance of regular exercise most days of the week as well as healthy diet assessment Essential hypertension impression controlled. cont current meds sa me. goal <140/90. assessment Body mass index (BMI) 45.0-49.9, adult [facility] Work Phone: [phone] History of Present illness Narrative* Encounter Date Complaint History Of Prese nt Illness annual wellness visit Relevant h istory is positive for alcohol use. Relevant history is negative for tobacco use. annual wellness visit Comments: had ba d s/e from [employer] so she stopped it. so she did not lose weight. she would like to try GLP1 problem check up discuss weight loss options Comments: has tr ied to lose weight with diet and exercise but no success for months. will lose 10 lb then go back up and is very frustrated with weight gain. Pap/Pelvic/CBE hypertension Chest pain New Patient pt has no new co ncerns, she is here to get established COVID 19 follow up Reports feeli ng better since testing postive other loss of taste/smeell and headaches. Monitoring tempature 98.7. Taking vitamin c and daily muttivitamin. Has not been contacted by health department. headache The severity of the problem is moderate. The problem has not changed. The symptoms are constant. Locations affected include entire head. Headache timing includes no pattern. Symptoms are not associated with menses, recent head trauma, recent MVA and stress. Denies aggravating factors. Denies relieving factors. Associated symptoms include dizziness and nausea. Pertinent negatives include blurred vision, fever, neck stiffness, vision loss left, vision loss right and vomiting. Additional information: patient said she is not sure if she has been exposed or not. friends are sick but don't know if they have been tested or not. sore throat Onset: 3 Days. T he severity of the problem is mild. The problem has not changed. Symptoms are associated with sick family member. Symptoms are not associated with exposure to strep, history of allergies and history of asthma. The patient denies aggravating factors. Associated symptoms include chills/rigors, cough, fatigue, headache, nasal congestion and sinus pressure. Pertinent negatives include facial pain, fever, postnasal drainage or wheezing. loss of taste and smell patient lost taste and smell on Saturday night. patient tried to eat and could not smell or taste her food. nasal congestion Onset: 3 days a go. The obstruction occurs in both nostrils. Denies aggravating factors. Denies relieving factors. Associated symptoms include headache. Pertinent negatives include deviated septum, facial pain and nasal drainage (posterior). shortness of breath In the inter rubén 3 days ago Episodes occur intermittently. The patient notes chest pressure and chest tightness. Denies aggravating factors. Denies relieving factors. Associated symptoms include chest pressure/discomfort, chills, dry cough, fatigue and night sweats. Pertinent negatives include anxiety, fever, productive cough and wheezing. cough Onset: 3 days ag o. The patient describes the cough as dry. Context: sick family member. There are no aggravating factors. There are no relieving factors. Associated symptoms include chills, cough, fatigue, nasal congestion, night sweats, sinus pressure and sore throat. Pertinent negatives include fever, hoarseness, post-nasal drainage and wheezing. [employer] Work Phone: [phone] Instructions* Date Instruction Additional Infor larry Counseled on weight reduction [employer] Work Phone: [phone] Evaluation note* Type Assessment Date assessment Weight gain impression will do a trial of wegovy. f/u w ith in 1 month. 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 so she did not lose weight. she would like to try GLP1 problem check up Comments: has tr ied to lose weight with diet and exercise but no success for months. will lose 10 lb then go back up and is very frustrated with weight gain. discuss weight loss options Pap/Pelvic/CBE hypertension Chest pain New Patient pt has no new co ncerns, she is here to get established COVID 19 follow up Reports feeli ng better since testing postive other loss of taste/smeell and headaches. Monitoring tempature 98.7. Taking vitamin c and daily muttivitamin. Has not been contacted by health department. cough Onset: 3 days ag o. The patient describes the cough as dry. Context: sick family member. There are no aggravating factors. There are no relieving factors. Associated symptoms include chills, cough, fatigue, nasal congestion, night sweats, sinus pressure and sore throat. Pertinent negatives include fever, hoarseness, post-nasal drainage and wheezing. shortness of breath In the inter rubén 3 days ago Episodes occur intermittently. The patient notes chest pressure and chest tightness. Denies aggravating factors. Denies relieving factors. Associated symptoms include chest pressure/discomfort, chills, dry cough, fatigue and night sweats. Pertinent negatives include anxiety, fever, productive cough and wheezing. nasal congestion Onset: 3 days a go. The obstruction occurs in both nostrils. Denies aggravating factors. Denies relieving factors. Associated symptoms include headache. Pertinent negatives include deviated septum, facial pain and nasal drainage (posterior). sore throat Onset: 3 Days. T he severity of the problem is mild. The problem has not changed. Symptoms are associated with sick family member. Symptoms are not associated with exposure to strep, history of allergies and history of asthma. The patient denies aggravating factors. Associated symptoms include chills/rigors, cough, fatigue, headache, nasal congestion and sinus pressure. Pertinent negatives include facial pain, fever, postnasal drainage or wheezing. headache The severity of the problem is moderate. The problem has not changed. The symptoms are constant. Locations affected include entire head. Headache timing includes no pattern. Symptoms are not associated with menses, recent head trauma, recent MVA and stress. Denies aggravating factors. Denies relieving factors. Associated symptoms include dizziness and nausea. Pertinent negatives include blurred vision, fever, neck stiffness, vision loss left, vision loss right and vomiting. Additional information: patient said she is not sure if she has been exposed or not. friends are sick but don't know if they have been tested or not. loss of taste and smell patient lost taste and smell on Saturday night. patient tried to eat and could not smell or taste her food. [facility] [employer] Work Phone: [phone] Evaluation note* Type Assessment Date assessment Other obesity impression will start contrave and f/u 1 month. discussed diet and regular exercise. assessment Abnormal weight gain impression see below. [employer] Work Phone: [phone] 787-104703-06-2023 History of Present illness Narrative* Encounter Date Complaint History Of Prese nt Illness discuss weight loss options Comments: has tr ied to lose weight with diet and exercise but no success for months. will lose 10 lb then go back up and is very frustrated with weight gain. Pap/Pelvic/CBE hypertension Chest pain New Patient pt has no new co ncerns, she is here to get established COVID 19 follow up Reports feeli ng better since testing postive other loss of taste/smeell and headaches. Monitoring tempature 98.7. Taking vitamin c and daily muttivitamin. Has not been contacted by health department. cough Onset: 3 days ag o. The patient describes the cough as dry. Context: sick family member. There are no aggravating factors. There are no relieving factors. Associated symptoms include chills, cough, fatigue, nasal congestion, night sweats, sinus pressure and sore throat. Pertinent negatives include fever, hoarseness, post-nasal drainage and wheezing. shortness of breath In the inter rubén 3 days ago Episodes occur intermittently. The patient notes chest pressure and chest tightness. Denies aggravating factors. Denies relieving factors. Associated symptoms include chest pressure/discomfort, chills, dry cough, fatigue and night sweats. Pertinent negatives include anxiety, fever, productive cough and wheezing. nasal congestion Onset: 3 days a go. The obstruction occurs in both nostrils. Denies aggravating factors. Denies relieving factors. Associated symptoms include headache. Pertinent negatives include deviated septum, facial pain and nasal drainage (posterior). loss of taste and smell patient lost taste and smell on Saturday night. patient tried to eat and could not smell or taste her food. sore throat Onset: 3 Days. T he severity of the problem is mild. The problem has not changed. Symptoms are associated with sick family member. Symptoms are not associated with exposure to strep, history of allergies and history of asthma. The patient denies aggravating factors. Associated symptoms include chills/rigors, cough, fatigue, headache, nasal congestion and sinus pressure. Pertinent negatives include facial pain, fever, postnasal drainage or wheezing. headache The severity of the problem is moderate. The problem has not changed. The symptoms are constant. Locations affected include entire head. Headache timing includes no pattern. Symptoms are not associated with menses, recent head trauma, recent MVA and stress. Denies aggravating factors. Denies relieving factors. Associated symptoms include dizziness and nausea. Pertinent negatives include blurred vision, fever, neck stiffness, vision loss left, vision loss right and vomiting. Additional information: patient said she is not sure if she has been exposed or not. friends are sick but don't know if they have been tested or not. 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 assessment Body mass index (BMI) 45.0-49.9, adult [facility] Work Phone: [phone]) 403-578110-12-2022 History of Present illness Narrative* Encounter Date Complaint History Of Prese nt Illness Pap/Pelvic/CBE hypertension Chest pain New Patient pt has no new co ncerns, she is here to get established COVID 19 follow up Reports feeli ng better since testing postive other loss of taste/smeell and headaches. Monitoring tempature 98.7. Taking vitamin c and daily muttivitamin. Has not been contacted by health department. headache The severity of the problem is moderate. The problem has not changed. The symptoms are constant. Locations affected include entire head. Headache timing includes no pattern. Symptoms are not associated with menses, recent head trauma, recent MVA and stress. Denies aggravating factors. Denies relieving factors. Associated symptoms include dizziness and nausea. Pertinent negatives include blurred vision, fever, neck stiffness, vision loss left, vision loss right and vomiting. Additional information: patient said she is not sure if she has been exposed or not. friends are sick but don't know if they have been tested or not. sore throat Onset: 3 Days. T he severity of the problem is mild. The problem has not changed. Symptoms are associated with sick family member. Symptoms are not associated with exposure to strep, history of allergies and history of asthma. The patient denies aggravating factors. Associated symptoms include chills/rigors, cough, fatigue, headache, nasal congestion and sinus pressure. Pertinent negatives include facial pain, fever, postnasal drainage or wheezing. loss of taste and smell patient lost taste and smell on Saturday night. patient tried to eat and could not smell or taste her food. nasal congestion Onset: 3 days a go. The obstruction occurs in both nostrils. Denies aggravating factors. Denies relieving factors. Associated symptoms include headache. Pertinent negatives include deviated septum, facial pain and nasal drainage (posterior). shortness of breath In the inter rubén 3 days ago Episodes occur intermittently. The patient notes chest pressure and chest tightness. Denies aggravating factors. Denies relieving factors. Associated symptoms include chest pressure/discomfort, chills, dry cough, fatigue and night sweats. Pertinent negatives include anxiety, fever, productive cough and wheezing. cough Onset: 3 days ag o. The patient describes the cough as dry. Context: sick family member. There are no aggravating factors. There are no relieving factors. Associated symptoms include chills, cough, fatigue, nasal congestion, night sweats, sinus pressure and sore throat. Pertinent negatives include fever, hoarseness, post-nasal drainage and wheezing. [employer] Work Phone: [phone] Evaluation note* Type Assessment Date assessment Elevated blood pressure reading impression borderline today but checks at home and usually around 128/80's. cont to log, goal < 140/90. assessment Body mass index (BMI) 45.0-49.9, adult [employer] Work Phone: [phone] History of Present illness Narrative* Encounter Date Complaint History Of Prese nt Illness New Patient pt has no new co ncerns, she is here to get established COVID 19 follow up Reports feeli ng better since testing postive other loss of taste/smeell and headaches. Monitoring tempature 98.7. Taking vitamin c and daily muttivitamin. Has not been contacted by health department. headache The severity of the problem is moderate. The problem has not changed. The symptoms are constant. Locations affected include entire head. Headache timing includes no pattern. Symptoms are not associated with menses, recent head trauma, recent MVA and stress. Denies aggravating factors. Denies relieving factors. Associated symptoms include dizziness and nausea. Pertinent negatives include blurred vision, fever, neck stiffness, vision loss left, vision loss right and vomiting. Additional information: patient said she is not sure if she has been exposed or not. friends are sick but don't know if they have been tested or not. sore throat Onset: 3 Days. T he severity of the problem is mild. The problem has not changed. Symptoms are associated with sick family member. Symptoms are not associated with exposure to strep, history of allergies and history of asthma. The patient denies aggravating factors. Associated symptoms include chills/rigors, cough, fatigue, headache, nasal congestion and sinus pressure. Pertinent negatives include facial pain, fever, postnasal drainage or wheezing. loss of taste and smell patient lost taste and smell on Saturday night. patient tried to eat and could not smell or taste her food. nasal congestion Onset: 3 days a go. The obstruction occurs in both nostrils. Denies aggravating factors. Denies relieving factors. Associated symptoms include headache. Pertinent negatives include deviated septum, facial pain and nasal drainage (posterior). shortness of breath In the inter rubén 3 days ago Episodes occur intermittently. The patient notes chest pressure and chest tightness. Denies aggravating factors. Denies relieving factors. Associated symptoms include chest pressure/discomfort, chills, dry cough, fatigue and night sweats. Pertinent negatives include anxiety, fever, productive cough and wheezing. cough Onset: 3 days ag o. The patient describes the cough as dry. Context: sick family member. There are no aggravating factors. There are no relieving factors. Associated symptoms include chills, cough, fatigue, nasal congestion, night sweats, sinus pressure and sore throat. Pertinent negatives include fever, hoarseness, post-nasal drainage and wheezing. [employer] Work Phone: consult note* Clinical Note Date No [employer] Work Phone: Discharge summary* Clinical Note Date No [employer] Work Phone: Evaluation note* Type Assessment Date No [employer] Work Phone: History and physical note* Clinical Note Date No [employer] Work Phone: Instructions* Date Instruction Additional Infor mation No [employer] Work Phone: Progress note* Clinical Note Date No Information [facility] Work Phone: Reason for referral (narrative)* Reason For Referral No Information [employer] Work Phone: Summary Purpose Family History Family Member Type Diagnosis Age At Onset Father Problem Diabetes mellitus Brother Problem Alive and well Father Problem Diverticulitis Son Problem Alive and well Mother Problem Hypertension Daughter Problem Alive and well Father Problem Hypertension Father Problem Colitis Father Problem Alive and well Mother Problem Alive and well Family Member Type Diagnosis Age At Onset Mother Problem Alive and well Father Problem Alive and well Father Problem Colitis Son Problem Alive and well Father Problem Hypertension Daughter Problem Alive and well Mother Problem Hypertension Father Problem Diverticulitis Brother Problem Alive and well Father Problem Diabetes mellitus Advance Directives Documents on File Type Date Recorded 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 Let me know if you are not getting any better in the next few days. I will send in a script for antibiotics. Relevant Orders POC Rapid Strep A (Completed) POC Influenza A/B (Completed) If any referrals were placed at the time of your visit please allow 2 weeks for processing. If you haven't heard from anyone within 2 weeks please contact my office so we can look into the status of your referral. If you were given any labs today please ensure they are completed according to the directions given. Once labs are completed please allow 1-2 weeks for us to receive the results, review them, and letyou know what steps, if any, are needed next. If you haven't heard from us after that please call to inquire. If labs were ordered to be done PRIOR to your next visit we will discuss the results at the time ofyour office visit. If any procedures or imaging studies were ordered that must be prior authorized please give us 2 weeks to get them approved. Once approved someone should call you to schedule them or give you a date and time that they were scheduled for. If you haven't heard anything within 2 weeks of the office visit please call the office so we can look into their status. Customer Service/Billing Questions: [phone] [employer] Assistance: [phone] or [phone] Financial Assistance: [phone] or [phone] As of April 06, 2019 my schedule will be changing: Saturday 7 am to 5 pm Saturday 7 am to 5 pm Saturday closed 7 am to 5 pm Saturday 7 am to 1 pm documented in this encounter* Patient Instructions* Marjorie Sommer CNP - 01/01/2019 6:53 PM EDT Problem List Items Addressed This Visit Other S/P laparoscopic cholecystectomy You are doing great post surgery! Let me know if you have any issues with the incisions, pain, or any other concerns. BMI 40.0-44.9, adult (HCC) .Eat meat, vegetables, nuts and seeds, some fruit, very little starch and absolutely no sugar. If you can grow it or kill it, then that's what you should be eating..... Chicken, turkey, fish pork, beef, ALL vegetables and fruit. If it is processed or you can not pronounce the ingredients, do not eat it! Shop the outside perimeter of the grocery store. Listen to your body, if you are hungry all the time you may need to increase your intake of healthyveggies and small healthy snacks. Eat whole, healthy foods and you won't need to count calories. Increase your activity level; the more you move your body the healthier you will be and the better you will feel! Diet and Exercise is not a fad, it really works! If any referrals were placed at the time of your visit please allow 2 weeks for processing. If you haven't heard from anyone within 2 weeks please contact my office so we can look into the status of your referral. If you were given any labs today please ensure they are completed according to the directions given. Once labs are completed please allow 1-2 weeks for us to receive the results, review them, and letyou know what steps, if any, are needed next. If you haven't heard from us after that please call to inquire. If labs were ordered to be done PRIOR to your next visit we will discuss the results at the time ofyour office visit. If any procedures or imaging studies were ordered that must be prior authorized please give us 2 weeks to get them approved. Once approved someone should call you to schedule them or give you a date and time that they were scheduled for. If you haven't heard anything within 2 weeks of the office visit please call the office so we can look into their status. Customer Service/Billing Questions: [phone] MyChart Assistance: [phone] or [phone] Financial Assistance: [phone] or [phone] I am going to get records to review your labwork and surgery and will decide from there when we need to follow up or what other routine care is needed. This visit was done via paperchart because the computers were down at the time. documented in this encounter History of Present Illness * Marjorie Sommer CNP - 05/19/2019 1:45 PM EST Subjective Patient ID: Risa Oshea is a 29 y.o. female. Sore Throat This is a new problem. Episode onset: 6 days. The problem has been waxing and waning. Maximum temperature: tactile. The pain is at a severity of 2/10. The pain is moderate. Associated symptoms include congestion, coughing, headaches, swollen glands and trouble swallowing. Pertinent negatives include no abdominal pain, diarrhea, drooling, ear discharge, ear pain, hoarse voice, plugged ear sensation, neck pain, shortness of breath, stridor or vomiting. She has had no exposure to strep or mono. She has tried NSAIDs (Amoxicillin x 2 days) for the symptoms. The treatment provided mild relief. The following were reviewed and updated as appropriate for today's visit: allergies, current medications, past family history, past medical history, past social history, past surgical history and problem list. Patient's Medications New Prescriptions No medications on file Previous Medications IBUPROFEN (ADVIL,MOTRIN) 200 MG TABLET Take 200 mg by mouth every 6 (six) hours as needed for pain . Modified Medications No medications on file Discontinued Medications No medications on file Review of Systems Review of Systems Constitutional: Positive for activity change, appetite change, chills, diaphoresis, fatigue and fever. HENT: Positive for congestion, postnasal drip, rhinorrhea, sore throat and trouble swallowing. Negative for drooling, ear discharge, ear pain, hoarse voice, sinus pressure and sinus pain. Respiratory: Positive for cough. Negative for chest tightness, shortness of breath and stridor. Gastrointestinal: Negative for abdominal pain, diarrhea and vomiting. Musculoskeletal: Negative for neck pain. Skin: Negative. Allergic/Immunologic: Negative for environmental allergies. Neurological: Positive for headaches. Negative for dizziness, weakness and light-headedness. Vitals: 05/19/19 1322 BP: 132/82 BP Location: Right arm Patient Position: Sitting BP Cuff Size: Adult Pulse: 90 Resp: 16 Temp: 98.3 F (36.8 C) TempSrc: Oral SpO2: 98% Weight: 113.4 kg (250 lb) Height: 5' 2 Body mass index is 45.73 kg/m . Physical Exam Physical Exam Constitutional: She is oriented to person, place, and time. She appears well- developed and well-nourished. HENT: Right Ear: External ear normal. Left Ear: Tympanic membrane and external ear normal. Nose: Nose normal. No mucosal edema or rhinorrhea. Right sinus exhibits no maxillary sinus tenderness and no frontal sinus tenderness. Left sinus exhibits no maxillary sinus tenderness and no frontalsinus tenderness. Mouth/Throat: Mucous membranes are normal. Posterior oropharyngeal erythema present. No oropharyngeal exudate or posterior oropharyngeal edema. Eyes: Conjunctivae, EOM and lids are normal. Neck: Normal range of motion. Cardiovascular: Normal rate, regular rhythm and normal heart sounds. No murmur heard. Pulmonary/Chest: Effort normal and breath sounds normal. Musculoskeletal: Comments: Normal gait Lymphadenopathy: Head (right side): Tonsillar adenopathy present. Head (left side): Tonsillar adenopathy present. Neurological: She is alert and oriented to person, place, and time. GCS eye subscore is 4. GCS verbal subscore is 5. GCS motor subscore is 6. Skin: Skin is warm and dry. Psychiatric: She has a normal mood and affect. Her speech is normal and behavior is normal. No data recorded Assessment/Plan Problem List Items Addressed This Visit Other Sore throat - Primary Your Flu and strep test were both negative. Let me know if you are not getting any better in the next few days. I will send in a script for antibiotics. Relevant Orders POC Rapid Strep A (Completed) POC Influenza A/B (Completed) Preventative Goals Goals better food choices Eat real food! Meat, veggies, fruit, nuts, berries, and seeds! Avoid processed foods and sugars! Blood Pressure < 130/80 High blood pressure makes your heart work too hard. It can cause heart attack, stroke and kidney disease. Exercise 150 minutes per week (moderate activity) HDL-C > 50 LDL CALC < 100 LDL or bad cholesterol can build up and clog your blood vessels. It can cause heart attack or stroke. For any new medications prescribed today, patient was educated about indications for the medication, how to take the medication and potential side effects of the medications. Marjorie Sommer CNP documented in this encounter* Marjorie Sommer CNP - 01/01/2019 6:45 PM EDT Subjective Patient ID: Risa Oshea is a 28 y.o. female. Patient is here today to establish care, she is new to this provider and new to this practice. Talked with patient at length about making healthy food choices. Encouraged patient to cut out all processed foods and sugars and increase activity level. Patient states that she has no concerns or questions at today's visit. She had originally made the appointment because she knew she was having gallbladder issues and needed a referral to a surgeon. She then had a gallbladder attack and ended up in the emergency room and had surgery within the past week. Do not have any records at this time. She has had 3 CSections with 3 healthy babies. Last was 10/06/2018 and this is when she noted she started having gallbladder issues. The following were reviewed and updated as appropriate for today's visit: allergies, current medications, past family history, past medical history, past social history, past surgical history and problem list. Patient's Medications New Prescriptions No medications on file Previous Medications IBUPROFEN (ADVIL,MOTRIN) 200 MG TABLET Take 200 mg by mouth every 6 (six) hours as needed for pain . Modified Medications No medications on file Discontinued Medications No medications on file Review of Systems Review of Systems Constitutional: Negative for activity change, appetite change and fatigue. HENT: Negative for hearing loss. Eyes: Negative for visual disturbance. Respiratory: Negative for cough, chest tightness, shortness of breath and wheezing. Cardiovascular: Negative for chest pain, palpitations and leg swelling. Gastrointestinal: Positive for abdominal pain (post cholecystectomy). Negative for blood in stool, constipation, diarrhea, nausea and vomiting. Skin: Negative. Neurological: Negative for dizziness, weakness, light-headedness, numbness and headaches. Hematological: Does not bruise/bleed easily. Psychiatric/Behavioral: Negative for dysphoric mood. The patient is not nervous/anxious. Vitals: 01/01/19 1305 BP: 133/85 BP Location: Right arm Patient Position: Sitting BP Cuff Size: Adult Pulse: 67 Resp: 18 Temp: 98.4 F (36.9 C) TempSrc: Oral SpO2: 98% Weight: 106.6 kg (235 lb) Height: 5' 2 Body mass index is 42.98 kg/m . Physical Exam Physical Exam Constitutional: She is oriented to person, place, and time. She appears well- developed and well-nourished. HENT: Right Ear: External ear normal. Left Ear: External ear normal. Nose: Nose normal. Mouth/Throat: Oropharynx is clear and moist and mucous membranes are normal. Eyes: Conjunctivae, EOM and lids are normal. Neck: Normal range of motion. Cardiovascular: Normal rate, regular rhythm and normal heart sounds. No murmur heard. Pulmonary/Chest: Effort normal and breath sounds normal. Abdominal: Soft. Normal appearance. There is tenderness. There is no rigidity, no rebound and no guarding. Noted x5 laparoscopic incision on abdomen covered with steri strips. All healing well with no redness, swelling, or drainage. Musculoskeletal: Comments: Normal gait Neurological: She is alert and oriented to person, place, and time. GCS eye subscore is 4. GCS verbal subscore is 5. GCS motor subscore is 6. Skin: Skin is warm and dry. Psychiatric: She has a normal mood and affect. Her speech is normal and behavior is normal. No data recorded Assessment/Plan Problem List Items Addressed This Visit None Preventative Goals Goals better food choices Eat real food! Meat, veggies, fruit, nuts, berries, and seeds! Avoid processed foods and sugars! Blood Pressure < 130/80 High blood pressure makes your heart work too hard. It can cause heart attack, stroke and kidney disease. Exercise 150 minutes per week (moderate activity) HDL-C > 50 LDL CALC < 100 LDL or bad cholesterol can build up and clog your blood vessels. It can cause heart attack or stroke. For any new medications prescribed today, patient was educated about indications for the medication, how to take the medication and potential side effects of the medications. Marjorie Sommer CNP documented in this encounter Assessments Diagnosis Sore throat Acute pharyngitis Diagnosis S/P laparoscopic cholecystectomy Other postprocedural status BMI 40.0-44.9, adult ([facility]) Chief Complaint and Reason for Visit From encounter dated '08/16/2021 14:30'. New Patient (chief complaint). Description: pt has no new concerns, she is here to get established From encounter dated '01/10/2022 10:30'. Pap/Pelvic/CBE (chief complaint) No Information No Information From encounter dated '07/11/2022 11:45'. problem (chief complaint). Description: check up No Information From encounter dated '08/20/2022 15:00'. annual wellness visit (chief complaint). Description: Relevant history is positive for alcohol use.Relevant history is negative for tobacco use. No Information No Information No Information No Information From encounter dated '03/06/2023 11:00'. sore throat (chief complaint). Description: Symptoms are associated with exposure to strep. Associated symptoms include headache. Pertinent negatives include cough, dyspnea, facial pain, fatigue, fever, nasal congestion or postnasal drainage. Additional information: body aches, sx started saturday. son has recently tested positive for strep. From encounter dated '04/18/2023 09:16'. Problem (chief complaint). Description: The symptoms began 2 weeks ago. The patient states the symptoms are acute. has a rash on her inner thighs has been there 2-3 weeks does not always bother her but it is itching today. Scratches until she draws blood at times. Hot water irritates. Bumpy in a few places but mostly red. No change in products No Information From encounter dated '06/04/2022 13:15'. discuss weight loss options (chief complaint) From encounter dated '06/04/2022 13:15'. discuss weight loss options (chief complaint) No Information No Information No Information From encounter dated 05/26/2024 13:30'. annual wellness visit (chief complaint). Description: Patient's Lerna 10- year Risk of Developing Hard CHD (Myocardial Infarction and Coronary ) is < 1%. Relevant history is positive for alcohol use. Relevant history is negative for tobacco use, passive vaping exposure and passive smoke exposure. Problem (chief complaint). Description: SEE MEDICATION RECONCILIATION REGARDING DISCREPANCY THAT NEEDS ADDRESSES. UPDATE MED MODULE ACCORDINGLY No Information No Information Physical Exam Exam Findings Details Respiratory Normal Auscultation - N ormal. Effort - Normal. Extremity Normal No edema. Abdomen Normal No abdominal ten derness. Psychiatric Normal Orientation - Or iented to time, place, person & situation. Appropriate mood and affect. Cardiovascular Normal Regular rate and rhythm. No murmurs, gallops, or rubs. Exam Findings Details Breast Normal Inspection - Jeremy ateral: Normal. Palpation - Bilateral: Normal. Nipples - Bilateral: Normal. Genitourinary * PAP - 01/10/2022 . Psychiatric Normal Orientation - Or iented to time, place, person & situation. Appropriate mood and affect. Exam Findings Details No Information Exam Findings Details Psychiatric Normal Orientation - Or iented to time, place, person & situation. Appropriate mood and affect. Normal insight. Normal judgment. Exam Findings Details Abdomen Normal Inspection - Nor mal. No abdominal tenderness. No hepatic enlargement. No spleen enlargement. Cardiovascular Normal Rhythm - Regular . Extra sounds - None. Murmurs - None. Ears Normal Inspection - Rig ht: Normal, Left: Normal. Extremity Normal No edema. Eyes Normal Conjunctiva - Ri ght: Normal, Left: Normal. Pupil - Right: Normal, Left: Normal. Lymph Detail Normal No palpable cerv ical, supraclavicular, or axillary adenopathy. Nose/Mouth/Throat Normal External nose - Normal. Lips/teeth/gums - Normal. Oropharynx - Normal. Neck Exam Normal Inspection - Nor mal. Palpation - Normal. Thyroid gland - Normal. Psychiatric Normal Appropriate mood and affect. Respiratory Normal Auscultation - N ormal. Effort - Normal. Skin Normal Inspection - Nor mal. Exam Findings Details Ears Normal TM - Right: Norm al, Left: Normal. Nose/Mouth/Throat * Oropharynx - e rythema. Respiratory Normal Auscultation - N ormal. Effort - Normal. Psychiatric Normal Orientation - Or iented to time, place, person & situation. Appropriate mood and affect. Cardiovascular Normal Regular rate and rhythm. No murmurs, gallops, or rubs. Exam Findings Details Skin Comments Slightly bumpy a reas BL inner thighs right > left. No s/s infections. Slight erythema. Eyes Normal Conjunctiva - Ri ght: Normal, Left: Normal. Ears Normal Inspection - Rig ht: Normal, Left: Normal. Neck Exam Normal Inspection - Nor mal. Respiratory Normal Auscultation - N ormal. Effort - Normal. Extremity Normal No edema. Abdomen Normal No abdominal ten derness. Musculoskeletal Normal Visual overview of all four extremities is normal. Neurological Normal Memory - Normal. Psychiatric Normal Orientation - Or iented to time, place, person & situation. Appropriate mood and affect. Cardiovascular Normal Regular rate and rhythm. No murmurs, gallops, or rubs. Exam Findings Details Psychiatric Normal Orientation - Or iented to time, place, person & situation. Appropriate mood and affect. Exam Findings Details Eyes Normal Conjunctiva - Ri ght: Normal, Left: Normal. Pupil - Right: Normal, Left: Normal. Ears Normal Inspection - Rig ht: Normal, Left: Normal. Nose/Mouth/Throat Normal External nose - Normal. Lips/teeth/gums - Normal. Oropharynx - Normal. Neck Exam Normal Inspection - Nor mal. Palpation - Normal. Thyroid gland - Normal. Skin Normal Inspection - Nor mal. Psychiatric Normal Appropriate mood and affect. Cardiovascular Normal Rhythm - Regular . Extra sounds - None. Murmurs - None. Respiratory Normal Auscultation - N ormal. Effort - Normal. Extremity Normal No edema. Abdomen Normal Inspection - Nor mal. No abdominal tenderness. No hepatic enlargement. No spleen enlargement. Lymph Detail Normal No palpable cerv ical, supraclavicular, or axillary adenopathy. Additional Source Comments INFORMATION SOURCE (unrecogn ized section and content) DATE CREATED AUTHOR 11/01/2018 [facility] ([place]) DATE CREATED AUTHOR AUTHOR'S ORGANIZ ATION 11/01/2018 [facility] DATE CREATED AUTHOR AUTHOR'S ORGANIZ ATION 01/16/2019 [facility] DATE CREATED AUTHOR AUTHOR'S ORGANIZ ATION 05/19/2019 [facility] DATE CREATED AUTHOR AUTHOR'S ORGANIZ ATION 02/10/2020 [facility] DATE CREATED AUTHOR AUTHOR'S ORGANIZ ATION 05/28/2024 [facility] Reason for Visit (unrecogniz ed section and content) Reason Comments Cough About a week kids an d have all had the flu recently Sore Throat Nasal Congestion Reason Comments Establish Care Assessment & Plan Note - Marjorie Sommer CNP - 05/19/2019 4:54 PM ESTAssessment & Plan Note - Marjorie Sommer CNP - 01/01/2019 6:53 PM EDT Miscellaneous Notes (unrecog nized section and content) Associated Problem(s): Sore throat Your Flu and strep test were both negative. Let me know if you are not getting any better in the next few days. I will send in a script for antibiotics. documented in this encounter Associated Problem(s): BMI 40.0-44.9, adult (HCC) .Eat meat, vegetables, nuts and seeds, some fruit, very little starch and absolutely no sugar. If you can grow it or kill it, then that's what you should be eating..... Chicken, turkey, fish pork, beef, ALL vegetables and fruit. If it is processed or you can not pronounce the ingredients, do not eat it! Shop the outside perimeter of the grocery store. Listen to your body, if you are hungry all the time you may need to increase your intake of healthy veggies and small healthy snacks. Eat whole, healthy foods and you won't need to count calories. Increase your activity level; the more you move your body the healthier you will be and the better you will feel! Diet and Exercise is not a fad, it really works! Associated Problem(s): S/P laparoscopic cholecystectomy You are doing great post surgery! Let me know if you have any issues with the incisions, pain, or any other concerns. documented in this encounter FOR RECORDS PERTAINING TO PATIENTS WHO ARE OR HAVE BEEN ENROLLED IN A CHEMICAL DEPENDENCY/SUBSTANCEABUSE PROGRAM, SOME INFORMATION MAY BE OMITTED. This clinical summary was aggregated from multiple sources. Caution should be exercised in using it in the provision of clinical care. This summary normalizes information from multiple sources, and as a consequence, information in this document may materially change the coding, format and clinical context of patient data. In addition, data may be omitted in some cases. CLINICAL DECISIONS SHOULD BE BASED ON THE PRIMARY CLINICAL RECORDS. [employer] provides no warranty or guarantee of the accuracy or completeness of information in this document.
== END | disposition home or self-care (01) ==
PROVIDERS: Referring Provider Physician Assistant Surgical; Visit Provider Physician Assistant Surgical
DX: R05.9 Cough, unspecified (principal)
CPT/HCPCS: 71046